=== PATIENT | female | born 1995 | race Caucasian/White ===

== ENCOUNTER → 2021-02-04 | Outpatient (REF) | payer OTHER ==
[2021-02-04 18:07] LABS: HEMATOCRIT 39.5 % (36.0-47.0); HEMOGLOBIN 13.5 g/dl (12.0-15.5); MEAN CORPUSCULAR HEMOGLOBIN 31.8 pg (27.0-33.0); MEAN CORPUSCULAR HGB CONC 34.2 g/dl (32.0-36.5); MEAN CORPUSCULAR VOLUME 92.9 fl (80.0-96.0); PLATELET COUNT, AUTOMATED 374 10^3/uL (150-450); RED BLOOD COUNT 4.25 10^6/uL (4.00-5.40); WHITE BLOOD COUNT 8.8 10^3/uL (4.0-10.0)
[2021-02-04 18:22] LABS: GLUCOSE CHALLENGE TEST 1 HOUR 90 MG/DL (LESS THAN 140)
[2021-02-04 19:39] LABS: CHLAMYDIA DNA AMPLIFICATION NEGATIVE (NEGATIVE); GC DNA AMPLIFICATION NEGATIVE (NEGATIVE)
[2021-02-07 15:20] LABS: HEPATITIS C VIRUS ABY INDEX 0.1 INDEX (<0.8); HIV 1&2 SCREEN CENTAUR NEGATIVE (NEGATIVE)
== END ==
LOC: M PLALAB 14:02
PROVIDERS: ATTEND Advanced Practice Midwife
DX: Z36.89 Encounter for other specified antenatal screening (principal); O99.211 Obesity complicating pregnancy, first trimester; Z3A.00 Weeks of gestation of pregnancy not specified

== ENCOUNTER → 2021-02-09 | Outpatient (CLI) | payer OTHER | LOC: M PLALAB 10:56 | PROVIDERS: ATTEND Advanced Practice Midwife | DX: Z36.89 Encounter for other specified antenatal screening (principal); Z34.82 Encounter for supervision of other normal pregnancy, second trimester ==

== ENCOUNTER → 2021-03-15 | Outpatient (CLI) | payer OTHER ==
--- NOTE | 2021-03-15 10:16 | REP ---
INDICATION: ANATOMY COMPARISON: None. TECHNIQUE: Transabdominal obstetrical ultrasound with color Doppler evaluation. FINDINGS: Examination demonstrates a single live intrauterine in cephalic presentation. motion is identified by technologist. Placenta is noted posterior and grade 0 without evidence for placenta previa or abruption. Amniotic fluid volume is normal. Cervix measures 3.3 cm in length and appears closed.. Gestational age by LMP 19 weeks 1 day with VAIBHAV 08/08/2021. Gestational age by current measurements 19 weeks 2 days with VAIBHAV 08/07/2021. FHR equals 146 beats per minute. Estimated weight 282 grams (51stpercentile). Anatomical assessment demonstrates normal structures including cranium, choroid plexus, cavum, cerebellum/posterior fossa, lungs, diaphragm, stomach, cord insertion/three-vessel cord, kidneys/bladder, spine, and extremities. IMPRESSION: 1. Single live intrauterine in cephalic presentation demonstrating appropriate estimated weight. 2. Limited evaluation of the facial features and heart/ventricular outflow tracts. Remainder of the anatomical assessment is complete and normal. <Electronically signed by Artie Lema > 03/15/21 1010
== END ==
LOC: M WHC 08:52 → EDUNIT# 09:00
PROVIDERS: ATTEND Advanced Practice Midwife
DX: O99.211 Obesity complicating pregnancy, first trimester (principal)

== ENCOUNTER → 2021-05-04 | Outpatient (CLI) | payer OTHER ==
[2021-05-04 13:49] LABS: HEMATOCRIT 38.5 % (36.0-47.0); MEAN CORPUSCULAR HEMOGLOBIN 32.4 pg (27.0-33.0); MEAN CORPUSCULAR HGB CONC 33.8 g/dl (32.0-36.5); PLATELET COUNT, AUTOMATED 320 10^3/uL (150-450); RED BLOOD COUNT 4.01 10^6/uL (4.00-5.40); WHITE BLOOD COUNT 9.7 10^3/uL (4.0-10.0)
== END ==
LOC: M PLALAB 10:11
PROVIDERS: ATTEND Advanced Practice Midwife
DX: O99.342 Other mental disorders complicating pregnancy, second trimester (principal)

== ENCOUNTER 2021-05-13 20:14 | Outpatient (CLI) | payer OTHER ==
[~2021-05-13] VITALS: Ht 172.7 cm; Wt 111.9 kg
[2021-05-13 20:33] VITALS: BP 137/78
[2021-05-13] MEDS ORDERED: LATU20TA PO (20:39)
--- NOTE | 2021-05-13 22:35 | REPVR ---
PROCEDURE INFORMATION: Exam: US Biophysical Profile Without Non-Stress Test Exam date and time: 05/13/2021 10:13 PM Age: 25 years old Clinical indication: Other: Decreased movement; TECHNIQUE: Imaging protocol: US biophysical profile without non-stress testing. COMPARISON: US OBS FOLLOW UP OR REPEAT 04/26/2021 9:01 AM FINDINGS: Gestation: Single intrauterine fetus. Transverse lie with head on the maternal right. heart rate: heartbeat of 150 bpm. Placenta: Posterior placenta. Amniotic fluid index: Normal YADIRA of 19.7 cm. BIOPHYSICAL PROFILE: Breathin/2 Gross body movements: 2/2 tone: 2/2 Qualitative amniotic fluid: 2/2 Biophysical Profile Score: 8/8 MATERNAL ANATOMY: Cervix: Closed cervix measuring 5.5 cm. IMPRESSION: 1. Single live intrauterine fetus in transverse lie with head on the maternal right. 2. YADIRA of 19.7 cm. 3. Normal biophysical profile score of 8/8. Electronically signed by: Fritz Ng On 05/13/2021 22:34:46 PM
--- NOTE | 2021-05-13 23:10 | IPNPDOC ---
Text Note Date of Service The patient was seen on 05/13/21. NOTE Outpatient 25yo VAIBHAV 08/08/2021. Presents at 27w4d with reports of decreased movement since last night. Reports not feeling movement after dinner as usual. Denies LOF, bleeding or UC Fetus difficult to trace due to maternal habitus and activity Cat I tracing No UC BPP 8/8 Pt is reassured. Discharged home. Routine precautions Keep next appt VS,Fishbone, I+O VS, Fishbone, I+O Vital Signs Date Time Temp Pulse Resp B/P (MAP) Pulse Ox O2 Delivery O2 Flow Rate FiO2 05/13/21 20:33 98.3 101 18 137/78 (97) Cari Carr CNM May 13, 2021 23:10
== END 2021-05-13 23:14 | disposition home or self-care (01) ==
LOC: M LDO 20:14
PROVIDERS: ATTEND Advanced Practice Midwife
DX: O36.8120 Decreased fetal movements, second trimester, not applicable or unspecified (principal); Z3A.27 27 weeks gestation of pregnancy; O99.212 Obesity complicating pregnancy, second trimester; E66.9 Obesity, unspecified; Z79.899 Other long term (current) drug therapy
CPT/HCPCS: 59025; 76819; 76820; G0378; G0463

== ENCOUNTER → 2021-06-01 | Outpatient (CLI) | payer OTHER ==
[~2021-06-01] MED LIST: LATU20TA PO
--- NOTE | 2021-06-01 12:09 | REP ---
INDICATION: BPP/NON REACTIVE NST. COMPARISON: 05/13/2021 TECHNIQUE: Multiple ultrasonographic images of the gravid uterus. FINDINGS: There is a single intrauterine gestation in a breech presentation. heart rate is 147 beats per minute. The placenta is posterior with grade 1 maturity. There is no placenta previa. There is a three-vessel cord. YADIRA: 13.3 (8.9-23.5). The cervix measures 4.2 cm length. Biophysical profile: Breathin.0 Tone: 2.0 Movement: 2.0 AFB: 2.0 Total 05/29 Umbilical artery Doppler ASSESSMENT: PSV 48.2 centimeters/second. EDV 21.9 centimeters/second. S/D 2.20 (1.94-4.07) RA: 0.55 (0.52-0.76). IMPRESSION: Single fetus, breech presentation. Posterior placenta. No previa. heart rate 147 beats per minute. YADIRA: 13.3. Biophysical profile: 05/29 <Electronically signed by Jim Bustos > 06/01/21 [id number]
== END ==
LOC: M WHC 11:31
PROVIDERS: ATTEND Advanced Practice Midwife
DX: O36.8130 Decreased fetal movements, third trimester, not applicable or unspecified (principal)

== ENCOUNTER 2021-06-10 22:32 | Outpatient (CLI) | payer OTHER ==
[~2021-06-10] VITALS: Ht 172.7 cm; Wt 117.0 kg
[2021-06-10 22:55] VITALS: BP 119/65
[2021-06-10] MEDS ORDERED: PRENTAB9 PO (23:02)
--- NOTE | 2021-06-11 00:14 | REPVR ---
PROCEDURE INFORMATION: Exam: US Biophysical Profile Without Non-Stress Test Exam date and time: 06/10/2021 11:49 PM Age: 25 years old Clinical indication: Other: Fall on hands and knees, no injury to belly; TECHNIQUE: Imaging protocol: US biophysical profile without non-stress testing. COMPARISON: US BPP W/O NON STRESS TEST 06/01/2021 11:39 AM FINDINGS: Gestation: Single intrauterine fetus. heart rate: heartbeat of 168 bpm. Presentation: Cephalic presentation. Placenta: Posterior placenta. Amniotic fluid index: Normal YADIRA of 14.2 cm. BIOPHYSICAL PROFILE: Breathin/2 Gross body movements: 2/2 tone: 2/2 Qualitative amniotic fluid: 2/2 Biophysical Profile Score: 8/8 MATERNAL ANATOMY: Cervix: Closed cervix measuring 5.1 cm. Other findings: The stomach, kidneys and bladder appear normal. IMPRESSION: 1. Single live intrauterine fetus in cephalic presentation. 2. Normal YADIRA of 14.2 cm. 3. Normal biophysical profile score of 8/8. Electronically signed by: Fritz Ng On 06/11/2021 00:14:24 AM
[2021-06-11] MEDS ORDERED: HOME MED LIST COMPLETE! XX SCH (00:20)
--- NOTE | 2021-06-11 02:14 | IPNPDOC ---
Text Note Date of Service The patient was seen on 06/10/21. NOTE Outpatient 25yo G1 VAIBHAV 08/08/2021. Presents @ 31w4d with complaints of falling down the last 3 steps, landing on hands and knees around 2130 tonight. Denies LOF, bleeding. Reports good activity. No distress. Resting in bed Cat I tracing. No UC BPP 05/29, no evidence abruption KB negative Reassuring maternal/ status over 4hrs post fall Discharge home. Routine precautions. Keep next appt. VS,Fishbone, I+O VS, Fishbone, I+O Vital Signs Date Time Temp Pulse Resp B/P (MAP) Pulse Ox O2 Delivery O2 Flow Rate FiO2 06/10/21 22:55 98.6 101 18 119/65 (83) Cari Carr CNM Jun 10, 2021 23:37
== END 2021-06-11 02:15 | disposition home or self-care (01) ==
LOC: M LDO 22:32
PROVIDERS: ATTEND Advanced Practice Midwife
DX: Z04.3 Encounter for examination and observation following other accident (principal); Z3A.31 31 weeks gestation of pregnancy
CPT/HCPCS: 36415; 59025; 76819; 76820; 85460; G0378; G0463

== ENCOUNTER → 2021-07-15 | Outpatient (REF) | payer OTHER ==
[~2021-07-15] MED LIST changes: +PRENTAB9 PO
== END ==
LOC: M SFHCWAGY 16:55
PROVIDERS: ATTEND Obstetrics & Gynecology
DX: Z36.89 Encounter for other specified antenatal screening (principal); Z3A.36 36 weeks gestation of pregnancy

== ENCOUNTER → 2021-08-03 | Outpatient (CLI) | payer OTHER ==
[~2021-08-03] MED LIST changes: +ACET-683 PO; +COLA100C5 PO; +IBUP-1022 PO; +NORE0.353 PO
--- NOTE | 2021-08-03 14:18 | REP ---
INDICATION: GROWTH UTERINE SIZE DATE DISCREPANCY COMPARISON: 06/10/2021 TECHNIQUE: Transabdominal obstetrical ultrasound with color Doppler evaluation. FINDINGS: Examination demonstrates a single live intrauterine in cephalic presentation. motion is identified by technologist. Placenta is noted posterior and grade 2 without evidence for placenta previa or abruption. Amniotic fluid volume is normal. Cervix measures 3.4 cm in length and appears closed.. Selected gestational age: 39 weeks 2 days with VAIBHAV 08/08/2021. Gestational age by current measurements 39 weeks 4 days with VAIBHAV is 08/06/2021. FHR equals 142 beats per minute. BPD: 9.6 cm at 39 weeks 1 day HC: 34.2 cm at 39 weeks 3 days AC: 36.1 cm at 40 weeks 0 days FL: 7.8 cm at 39 weeks 5 days HL: 6.8 cm at 39 weeks 4 days HC/AC: 0.95 Estimated weight 3897 grams (83rdpercentile). YADIRA: 11.1 cm (7.2-22.2) IMPRESSION: Single live advanced gestation in cephalic presentation. Estimated weight within normal range. Amniotic fluid index normal. <Electronically signed by Artie Lema > 08/03/21 [id number]
== END ==
LOC: M WHC 12:34
PROVIDERS: ATTEND Advanced Practice Midwife
DX: O26.843 Uterine size-date discrepancy, third trimester (principal); Z3A.39 39 weeks gestation of pregnancy

== ENCOUNTER 2021-08-10 17:21 | Inpatient (IN) | payer OTHER ==
[~2021-08-10] VITALS: Ht 172.7 cm; Wt 122.0 kg
[~2021-08-10 17:21] MED LIST changes: -ACET-683 PO; -COLA100C5 PO; -IBUP-1022 PO; -NORE0.353 PO
[2021-08-10 17:34] VITALS: BP 127/65
--- OUTSIDE RECORDS SUMMARY | 2021-08-10 18:50 | CCD | Continuity of Care Document ---
Author Author [facility] Organization Unknown Address [address] [place] [address] Phone [phone] Care Team Providers Care Surveillance Analyst Name Role Phone Chloe Santana MD AUTM [phone] [facility] Sleep Center AUTM [phone] [facility] Behavioral Health AUTM [phone] [facility]-DR. Beckman AUTM Problems Active Problems Provider Date Bilateral temporomandibular joint disorder Chloe Santana MD Onset: 01/14/2021 Depressive disorder Chloe Santana MD Onset: 01/14/2021 Anxiety state Chloe Santana MD Onset: 01/14/2021 Social History Type Date Description Comments Sex Unknown Tobacco Use Start: Unknown End: Unknown Former Cigarette Smo ker Tobacco Use Start: Unknown Never Smoked Cigars Tobacco Use Start: Unknown Never Smoked A Pipe Tobacco Use Start: Unknown Never Used Smokeless Tobacco ETOH Use Occasionally consumed alcohol in the past Tobacco Use Start: Unknown End: Unknown Patient is a former smoker Quit 2019 1 pack per week x 5 years Recreational Drug Use Formerly used Marijuana sp oradically Recreational Drug Use Formerly used Cocaine spor adically Recreational Drug Use Formerly used Barbiturates sporadically Allergies, Adverse Reactions, Alerts Active Allergies Reaction Severity Comments Date NKDA 01/14/2021 NKEA 01/14/2021 Mega 04/27/2021 Medications Active Medications SIG Qnty Indications Ordering Provide r Date Latuda 20mg Tablets 1 by mouth every morning Unknown 04/01/2021 One Daily Tablets 1 by mouth every day Unknown Immunizations Description No Information Available Vital Signs Date Vital Result Comment 04/27/2021 10:01am BP Systolic Sitting 110 mmHg BP Diastolic Sitting 69 mmHg Heart Rate 84 /min Body Temperature 97.7 F Oral Respiratory Rate 16 /min O2 % BldC Oximetry 100 % Weight 242.50 lb Weight 109.998 kg Height 68 inches 5'8" BMI (Body Mass Index) 36.9 kg/m2 BSA (Body Surface Area) 2.22 m2 01/14/2021 10:56am BP Systolic 110 mmHg BP Diastolic 72 mmHg Heart Rate 86 /min Body Temperature 97.7 F Respiratory Rate 16 /min O2 % BldC Oximetry 98 % Weight 229.25 lb Weight 103.988 kg Height 68 inches 5'8" BMI (Body Mass Index) 34.9 kg/m2 BSA (Body Surface Area) 2.17 m2 Results Test Acquired Date Facility Test Result H/L Range Note Complete Blood Count 05/04/2021 [facility] White Blood Count 9.7 10 Normal 4.0-10.0 Red Blood Count 4.01 10 Normal 4.00-5.40 Hemoglobin 13.0 g/dL Normal 12.0-15.5 Hematocrit 38.5 % Normal 36.0-47.0 Mean Corpuscular Volume 96.0 fl Normal 80.0-96.0 Mean Corpuscular Hemoglobin 32.4 pg Normal 27.0-33.0 Mean Corpuscular HGB Conc 33.8 g/dL Normal 32.0-36.5 Red Cell Distribution Width 13.0 % Normal 11.5-14.5 Platelet Count, Automated 320 10 Normal 150-450 Nucleated Red Blood Cell % 0.0 % Normal 0-0 Laboratory test finding 05/04/2021 [facility] Glucose Challenge Test 1 Hour 106 mg/dL Normal Less Than 1 40 Type & Screen -Incl Blood Type,Robert,AB SC 05/04/2021 [facility] Blood Type O NEGATIVE Normal AB Screen (Indirect Dougie)Vis NEGATIVE Normal Laboratory test finding 05/04/2021 [facility] Rhogam TRANSFUSED PRODU <SEE NOTE> 1 Medwatch Toxassure Select 13 04/27/2021 Bethanie noyola Summary Report (Summary) FINAL 2, 3 PDF . 1 TRANSFUSED PRODUCT: RHOGAM COUNT: 1 2 {DIAGNOSIS: F41.9 F32.89 F4 3.10~{MEDICATIONS/DECLARED: LATUDA~{PRESCRIPTION INFO:~{PRESCRIPTION 3 TOXASSURE SELECT 13 (MW) Test Result Flag Units NO DRUGS DETECTED. Test Result Flag Units Ref Range Creatinine 52 mg/dL >=20 Declared Medications: The flagging and interpretation on this report are based on the following declared medications. Unexpected results may arise from inaccuracies in the declared medications. Note: The testing scope of this panel does not include following reported medications: Lurasidone (Latuda) For clinical consultation, please call . Procedures Date Code Description Status 06/02/2021 44309 Psychiatric Diag Eval W/Medical Service Completed 04/27/2021 86322 Preventive Counseling Indiv 45 M in Completed 03/14/2021 81390 Psychiatric Diagnostic Evaluatio n Completed 01/14/2021 61117 Office/Outpatient New Low MDM 30 -44 Minutes Completed 01/14/2021 54804 Admin Patient Focused Health Ris k Assessment Instrument Completed 01/14/2021 65786 Brief Emotional/Beha v Assessment W/ Scoring Doc Per Standard Inst Completed Medical Devices Description No Information Available Encounters Description No Information Available Assessments Date Code Description Provider 06/08/2021 F32.89 Other specified depressive episo snehal Ronnie Lucien, [facility] 06/08/2021 F41.9 Anxiety disorder, unspecified Sommer long Lucien, [facility] 06/02/2021 F32.89 Other specified depressive episo snehal Harjeet Delgadillo PA-C 06/02/2021 F41.9 Anxiety disorder, unspecified Ca bhumi Delgadillo PA-C 06/02/2021 F60.9 Personality disorder, unspecifie d Harjeet Delgadillo PA-C 05/24/2021 F32.89 Other specified depressive episo snehal Ronnie Graham, [facility] 05/24/2021 F41.9 Anxiety disorder, unspecified Mi ethan Graham, [facility] 05/24/2021 F43.10 Post-traumatic stress disorder, unspecified Ronnie Lucien, [facility] 05/02/2021 F32.89 Other specified depressive episo snehal Ronnie Graham, [facility] 05/02/2021 F41.9 Anxiety disorder, unspecified Mi ethan Lucien, [facility] 05/02/2021 F43.10 Post-traumatic stress disorder, unspecified Ronnie Graham, [facility] 04/27/2021 F32.89 Other specified depressive episo snehal Krystle Duran RN 04/27/2021 F41.9 Anxiety disorder, unspecified An keihsa Duran RN 04/27/2021 F43.10 Post-traumatic stress disorder, unspecified Krystle Duran RN 04/04/2021 F41.9 Anxiety disorder, unspecified Mi ethan Graham, [facility] 04/04/2021 F32.89 Other specified depressive episo snehal Ronnie Graham, [facility] 04/04/2021 F43.10 Post-traumatic stress disorder, unspecified Ronnie Graham, [facility] 03/14/2021 F41.9 Anxiety disorder, unspecified Sommer Graham, [facility] 03/14/2021 F32.89 Other specified depressive episo snehal Ronnie Graham, [facility] 03/14/2021 F43.10 Post-traumatic stress disorder, unspecified Ronnie Graham, [facility] 01/14/2021 Z00.00 Encounter for critical access hospital adult medical examination without abnormal findings Chloe Santana MD 01/14/2021 Z33.1 state, incidental Chloe Santana MD 01/14/2021 G47.8 Other sleep disorders Chloe fernández MD 01/14/2021 F41.9 Anxiety disorder, unspecified An johnny Santana MD 01/14/2021 F32.89 Other specified depressive episo snehal Chloe Santana MD 01/14/2021 M26.603 Bilateral temporomandibular join t disorder, unspecified Chloe Santana MD Plan of Treatment Future Appointment(s):* 06/29/2021 9:00 am - STEVEN Lara at [facility] * 09/01/2021 1:00 pm - Harjeet Delgadillo PA-C at [facility] Functional Status Functional Condition Comment Date Status Glasses Active Mental Status Description No Information Available Referrals Refer to Reason for Referral Status Appt Date [facility] Sleep Center 25-year-old female with rest less sleep, irritability, memory loss, anxiety, depression, PTSD. She scored 4 on [place] scale today. She would like to get a sleep study done. Please evaluate and treat. Thank you. Closed [address] [place] [address] [phone] [facility] 25-year-old female with hist ory of anxiety, depression and PTSD. Please evaluate and treat. Thank you. Closed [address] [place] [address] [phone] [facility]-DR. Beckman 25-year-old female with h istory of TMJ disorder. Please evaluate and treat. Thank you. Closed [address] [facility] [address] [phone]
--- OUTSIDE RECORDS SUMMARY | 2021-08-10 18:50 | CCD ---
Author Author [facility] Organization [facility] Address Unknown Phone Unavailable Care Team Providers Care Hand Shaker Name Role Phone Cari Carr Unavailable PROBLEMS Type Condition ICD9-CM Code [id number] Code Onset Dates Condition S tatus W/U Status Risk SNOMED Code Notes Problem BMI 34.0-34.9,adult Z68.34 Active confirmed 979164671 Problem Other obesity due to excess calories E66.09 Act alma confirmed 071524510 Problem Supervision of other normal Z34.80 Ac tive confirm [id number] Problem PTSD (post-traumatic stress disorder) F43.10 Ac tive confirmed 71333657 Problem Maternal care for anti-D [Rh ] antibodies, third trimester, not applicable or unspecified O36.0130 Active confirmed Problem Obesity complicating in first trimester O99.211 Active confirmed 733369894829 Problem Obesity affecting in second trimester O9 9.212 Active confirmed 646597200173 Problem BMI 35.0-35.9,adult Z68.35 Active confirmed 291213212 Problem Depression with anxiety F41.8 Active confirmed 517084283 ALLERGIES No Known Allergies ENCOUNTERS from 1995 to 2021-06-02 Encounter Location Date Provider Diagnosis [facility] [address] [facility] [address] [facility] [phone] [place] [address] May, Cari Carr Decreased m ovement during in third trimester, antepartum O36.8130 ; Maternal care for anti-D [Rh] antibodies, third trimester, not applicable or unspecified O36.0130 and 30 weeks gestation of Z3A.30 IMMUNIZATIONS Vaccine Route Administration Date Status RHo D Immune Globulin 300mcg/1.5mL RhoGAM IM Intramuscular May 222020 Administered SOCIAL HISTORY Tobacco Use: Social History Observation Description Date Details (start date - stop date) Former Smoker Sex Assigned At : Social History Observation Description Sex Assigned At Unknown Domestic Violence: Question Answer Notes Status: No history of abuse Tobacco Use: Question Answer Notes Are you a: former smoker REASON FOR REFERRAL No Information VITAL SIGNS Weight 252 lbs May, Weight-kg 114.31 kg May, Height 68 in May, BMI 38.316 kg/m2 May, Blood pressure systolic 118 mm Hg May, Blood pressure diastolic 74 mm Hg May, MEDICATIONS Medication SIG (Take, Route, Frequency, Duration) Notes Start Da te End Date Status 27-1 MG 1 tablet Orally Once a day Active Latuda 20 MG 1 tablet with food Orally Once a day for 30 day(s) Jan, Active PROCEDURES from 1995 to 2021-06-02 Procedure Date Ordered Result Body Site non-stress test 2021-06-01 N/A Inj: RhoGAM 300mcg/1.5mL IM Rho D Immune Globulin Human N/A RESULTS No Results REASON FOR VISIT 4 wk pn MEDICAL (GENERAL) HISTORY Type Description Date Medical History depression/anxiety/ptsd Medical History sleep apena Surgical History T&A removed Surgical History wisdom teeth extraction Hospitalization History depression Goals Section No Information Health Concerns No Information MEDICAL EQUIPMENT No Information MENTAL STATUS No Information FUNCTIONAL STATUS No Information ASSESSMENTS Encounter Date Diagnosis Assessment Notes Treatment Notes Treatm ent Clinical Notes May, Decreased movement dur ing in third trimester, antepartum (ICD-10 - O36.8130) May, Maternal care for anti-D [Rh ] antibodies, third trimester, not applicable or unspecified (ICD-10 - O36.0130) May, 30 weeks gestation of (ICD-10 - Z3A.30 ) PLAN OF TREATMENT Treatment Notes Test Name Order Date WW[facility] Biophysical Profile US 2021-06-01 Next Appt Details 2 Weeks Reason:- Routine follow up Provider Name:Cari Carr, 2021-06-21 08:40:00 AM, [address] [facility], , [place], [address], Follow Up:2 Weeks- Routine follow up Insurance Providers Payer Name Payer Address Payer Phone Insured Name Patient Relati onship to Insured Coverage Start Date Coverage End Date [address] [phone] JOANNA BENÍTEZ self
--- OUTSIDE RECORDS SUMMARY | 2021-08-10 18:50 | CCD ---
Author Author [facility] Organization [facility] Address Unknown Phone Unavailable Care Team Providers Care School Laboratory Technician Name Role Phone Drew Rachel Unavailable PROBLEMS Type Condition ICD9-CM Code [id number] Code Onset Dates Condition S tatus W/U Status Risk SNOMED Code Notes Problem Obesity complicating in first trimester O99.211 Active confirmed 189433377520 Problem Obesity affecting in second trimester O9 9.212 Active confirmed 806449419013 Problem Depression with anxiety F41.8 Active confirmed 861209989 Problem Other obesity due to excess calories E66.09 Act alma confirmed 623661872 Problem Anxiety with depression F41.8 Active confirmed 900231269 Problem BMI 34.0-34.9,adult Z68.34 Active confirmed 660813524 Problem Obesity complicating , third trimester O9 9.213 Active confirmed 916741601991 Problem Supervision of other normal Z34.80 Ac tive confirm 865618156 Problem PTSD (post-traumatic stress disorder) F43.10 Ac tive confirmed 89931238 Problem BMI 35.0-35.9,adult Z68.35 Active confirmed 168377665 Problem Maternal care for anti-D [Rh ] antibodies, third trimester, not applicable or unspecified O36.0130 Active confirmed Problem Obesity complicating in third trimester O99.213 Active confirmed ALLERGIES No Known Allergies ENCOUNTERS from 1995 to 2021-07-21 Encounter Location Date Provider Diagnosis [facility] [address] [facility] [phone] [place] [address] Jun, Drew Rachel Mental disorder comp licating in third trimester O99.343 ; Anxiety with depression F41.8 ; Obesity complicating , third trimester O99.213 and 37 weeks gestation of Z3A.37 IMMUNIZATIONS Vaccine Route Administration Date Status TDAP 0.5mL Boostrix IM Intramuscular Jun 21, 2021 Administere d RHo D Immune Globulin 300mcg/1.5mL RhoGAM IM [...] FOR REFERRAL No Information VITAL SIGNS Weight 267 lbs Jun, Weight-kg 121.11 kg Jun, Height 68 in Jun, BMI 40.597 kg/m2 Jun, Blood pressure systolic 118 mm Hg Jun, Blood pressure diastolic 74 mm Hg Jun, MEDICATIONS Medication SIG (Take, Route, Frequency, Duration) Notes Start Da te End Date Status 27-1 MG 1 tablet Orally Once a day Active Latuda 20 MG 1 tablet with food Orally Once a day for 30 day(s) Jan, Active PROCEDURES No Information RESULTS No Results REASON FOR VISIT 1 WK PN MEDICAL (GENERAL) HISTORY Type Description Date Medical History depression/anxiety/ptsd Medical History sleep apena Surgical History T&A removed Surgical History wisdom teeth extraction Hospitalization History depression Goals Section No Information Health Concerns No Information MEDICAL EQUIPMENT No Information MENTAL STATUS No Information FUNCTIONAL STATUS No Information ASSESSMENTS Encounter Date Diagnosis Assessment Notes Treatment Notes Treatm ent Clinical Notes Jun, Mental disorder complicating in third trimester (ICD-10 - O99.343) Jun, Anxiety with depression (ICD-10 - F41.8) Jun, Obesity complicating , third tr imester (ICD-10 - O99.213) Jun, 37 weeks gestation of (ICD-10 - Z3A.37 ) PLAN OF TREATMENT Next Appt Details 1 Week Reason:PN Provider Name:Frantz Paredes 2021-07-26 10:15:00 AM, [address] [facility], , [place], [address], Follow Up:1 WeekPN Insurance Providers Payer Name Payer Address Payer Phone Insured Name Patient Relati onship to Insured Coverage Start Date Coverage End Date [address] [phone] JOANNA BENÍTEZ self
--- OUTSIDE RECORDS SUMMARY | 2021-08-10 18:50 | CCD ---
Author Author [facility] Organization [facility] Address Unknown Phone Unavailable Care Team Providers Care Mobile Qa Tester Name Role Phone Edith Ferreira Unavailable PROBLEMS Type Condition ICD9-CM Code EHU83-OW Code Onset Dates Condition S tatus W/U Status Risk SNOMED Code Notes Problem Supervision of other normal Z34.80 Ac tive confirm 567157914 Problem Other obesity due to excess calories E66.09 Act alma confirmed 797359776 Problem BMI 35.0-35.9,adult Z68.35 Active confirmed 691695739 Problem Obesity affecting in second trimester O9 9.212 Active confirmed 394707434202 Problem Depression with anxiety F41.8 Active confirmed 198825908 Problem Anxiety with depression F41.8 Active confirmed 291914408 Problem Obesity complicating in first trimester O99.211 Active confirmed 526512032964 Problem Obesity complicating , third trimester O9 9.213 Active confirmed 659619456036 Problem BMI 34.0-34.9,adult Z68.34 Active confirmed 974538281 Problem PTSD (post-traumatic stress disorder) F43.10 Ac tive confirmed 53634823 Problem Maternal care for anti-D [Rh ] antibodies, third trimester, not applicable or unspecified O36.0130 Active confirmed Problem Obesity complicating in third trimester O99.213 Active confirmed Problem Obesity, unspecified E66.9 Active confirmed 008248763 ALLERGIES No Known Allergies ENCOUNTERS from 1995 to 2021-07-27 Encounter Location Date Provider Diagnosis [facility] [address] [facility] [address] [phone] [place] [address] Jun, Edith Ferreira Obesity complicating in third trimester O99.213 ; Obesity, unspecified E66.9 ; 36 weeks gestation of Z3A.36 and Encounter for care in third trimester of first Z34.03 IMMUNIZATIONS Vaccine Route Administration Date Status TDAP [...] Answer Notes Status: No history of abuse Alcohol Screening: Question Answer Notes Did you have a drink containing alcohol in the past year? No Points 0 Interpretation Negative Tobacco Use: Question Answer Notes Are you a: former smoker How long has it been since you last smoked? 1-5 years REASON FOR REFERRAL No Information VITAL SIGNS Weight 263 lbs Jun, Height 68 in Jun, BMI 39.989 kg/m2 Jun, Blood pressure systolic 110 mm Hg Jun, Blood pressure diastolic 60 mm Hg Jun, MEDICATIONS Medication SIG (Take, Route, Frequency, Duration) Notes Start Da te End Date Status 27-1 MG 1 tablet Orally Once a day Active Latuda 20 MG 1 tablet with food Orally Once a day for 30 day(s) Jan, Active PROCEDURES No Information RESULTS Component Value Reference Range GROUP B STREP CULTURE Reviewed date:07/17/2021 11:16:03 Interpretation: Performing Lab:Replaced By [facility], [facility] [address] [address] , ,[place] [address] REASON FOR VISIT 1 WK PN MEDICAL [...] Treatment Notes Treatm ent Clinical Notes Jun, Obesity complicating pregnan cy in third trimester (ICD-10 - O99.213) Jun, Obesity, unspecified (ICD-10 - E66.9) Jun, 36 weeks gestation of (ICD-10 - Z3A.36 ) Jun, Encounter for care in third trimester of first (ICD-10 - Z34.03) PLAN OF TREATMENT Next Appt Details 1 Week Reason:Routine Provider Name:Cari Amalia Lilly, 2021-08-02 03:00:00 PM, [address], , [place], [address], Follow Up:1 WeekRoutine Insurance Providers Payer Name Payer Address Payer Phone Insured Name Patient Relati onship to Insured Coverage Start Date Coverage End Date [address] [phone] JOANNA BENÍTEZ self
--- OUTSIDE RECORDS SUMMARY | 2021-08-10 18:50 | CCD | Continuity of Care Document ---
Author Author Bee DELGADILLO PA-C Organization Unknown Address [facility] [address] [place] [address] Phone [phone] Care Team Providers Care Diploma Pharmacy Technician Name Role Phone Chloe Santana MD AUTM [phone] [facility] AUTM [phone] [facility] AUTM [phone] [facility]-DR. Beckman AUTM [phone] Problems Active Problems Provider Date Bilateral temporomandibular [...] Severity Comments Date NKDA 01/14/2021 [facility] 01/14/2021 [place] 04/27/2021 Medications Active Medications SIG Qnty Indications [...] H/L Range Note Complete Blood Count 05/04/2021 [facility] White Blood Count 9.7 10 Normal 4.0-10.0 [...] % Normal 0-0 Laboratory test finding 05/04/2021 [facility] Glucose Challenge Test 1 Hour 106 mg/dL Normal Less Than 1 40 Type & Screen -Incl Blood Type,Robert,AB SC 05/04/2021 [facility] Blood Type O NEGATIVE Normal AB Screen (Indirect Dougie)Vis NEGATIVE Normal Laboratory test finding 05/04/2021 [facility] Rhogam TRANSFUSED PRODU <SEE NOTE> 1 Medwatch Toxassure Select 13 04/27/2021 Betahnie noyola Summary Report (Summary) FINAL 2, 3 [...] . Procedures Date Code Description Status 06/02/2021 63570 Psychiatric Diag Eval W/Medical Service Completed 04/27/2021 64778 Preventive Counseling Indiv 45 M in Completed 03/14/2021 11384 Psychiatric Diagnostic Evaluatio n Completed 01/14/2021 12535 Office/Outpatient New [facility] 30 -44 Minutes Completed 01/14/2021 18798 Admin Patient Focused Health Ris k Assessment Instrument Completed 01/14/2021 73632 Brief Emotional/Beha v Assessment W/ Scoring Doc Per Standard Inst Completed Medical Devices Description No Information Available Encounters Description No Information Available Assessments Date Code Description Provider 06/02/2021 F32.89 Other specified depressive episo snehal Harjeet Delgadillo PA-C 06/02/2021 F41.9 Anxiety disorder, unspecified Ca bhumi Delgadillo PA-C 06/02/2021 F60.9 Personality disorder, unspecifie d Harjeet Delgadillo PA-C 05/24/2021 F32.89 Other specified depressive episo snehal Ronniemelania Mcgraw, [facility] 05/24/2021 F41.9 Anxiety disorder, unspecified Sommer Mcgraw, [facility] 05/24/2021 F43.10 Post-traumatic stress disorder, unspecified Ronnie Mcgraw, [facility] 05/02/2021 F32.89 Other specified depressive episo snehal Ronnie Lucien, [facility] 05/02/2021 F41.9 Anxiety disorder, unspecified Sommer Mcgraw, [facility] 05/02/2021 F43.10 Post-traumatic stress disorder, unspecified Ronnie Mcgraw, [facility] 04/27/2021 F32.89 Other specified depressive episo snehal Krystle Duran, RN 04/27/2021 F41.9 Anxiety disorder, unspecified An keisha Duran RN 04/27/2021 F43.10 Post-traumatic stress disorder, unspecified Krystle Duran, RN 04/04/2021 F41.9 Anxiety disorder, unspecified Mi ethan Mcgraw, [facility] 04/04/2021 F32.89 Other specified depressive episo snehal Ronnie Mcgraw, [facility] 04/04/2021 F43.10 Post-traumatic stress disorder, unspecified Ronnie Mcgraw, [facility] 03/14/2021 F41.9 Anxiety disorder, unspecified Mi ethan Mcgraw, [facility] 03/14/2021 F32.89 Other specified depressive episo snehal Ronnie Lucien, [facility] 03/14/2021 F43.10 Post-traumatic stress disorder, unspecified Ronnie Lucien, [facility] 01/14/2021 Z00.00 Encounter for genera l adult medical examination without abnormal findings Chloe Santana MD 01/14/2021 Z33.1 state, incidental Chloe Santana MD 01/14/2021 G47.8 Other sleep disorders Chloe fernández MD 01/14/2021 F41.9 Anxiety disorder, unspecified An johnny Sanat[place] MD 01/14/2021 F32.89 Other specified depressive episo snehal Chloe Santana MD 01/14/2021 M26.603 Bilateral temporomandibular join t disorder, unspecified Chloe Santana MD Plan of Treatment Future Appointment(s):* 09/01/2021 1:00 pm - Harjeet Delgadillo PA-C at [facility] * 06/08/2021 10:00 am - STEVEN Lara at [facility] Functional Status Functional Condition Comment Date Status Glasses Active Mental Status Description No Information Available Referrals Refer to Reason for Referral Status Appt Date [facility] 25-year-old female with rest less sleep, irritability, memory loss, anxiety, depression, PTSD. She scored 4 on [place] scale today. She would like to get a sleep study done. Please evaluate and treat. Thank you. Closed [address] [place], [place] [id number] [phone] [facility] 25-year-old female with hist ory of anxiety, depression and PTSD. Please evaluate and treat. Thank you. Closed [address] [place] [address] [phone] [facility]-DR. Beckman 25-year-old female with h istory of TMJ disorder. Please evaluate and treat. Thank you. Closed [address] [facility] [address] [phone]
--- OUTSIDE RECORDS SUMMARY | 2021-08-10 18:50 | CCD | Continuity of Care Document ---
Author Author [facility] Organization Unknown Address [address] [place] [address] Phone [phone] Care Team Providers Care Internal Control Consultant Name Role Phone Chloe Santana MD AUTM [phone] [facility] AUTM [phone] [facility] AUTM [phone] [facility]-DR. Beckman AUTM [phone] Problems Active Problems Provider Date Bilateral temporomandibular [...] H/L Range Note Complete Blood Count 05/04/2021 [facility] White Blood Count 9.7 10 Normal [...] % Normal 0-0 Laboratory test finding 05/04/2021 [facility] Glucose Challenge Test 1 Hour 106 mg/dL Normal Less Than 1 40 Type & Screen -Incl Blood Type,Robert,AB SC 05/04/2021 [facility] Blood Type O NEGATIVE Normal AB Screen (Indirect Dougie)Vis NEGATIVE Normal Laboratory test finding 05/04/2021 [facility] Rhogam TRANSFUSED PRODU <SEE NOTE> 1 [...] . Procedures Date Code Description Status 06/02/2021 19944 Psychiatric Diag Eval W/Medical Service Completed 04/27/2021 02521 Preventive Counseling Indiv 45 M in Completed 03/14/2021 81690 Psychiatric Diagnostic Evaluatio n Completed 01/14/2021 29784 Office/Outpatient New [facility] 30 -44 Minutes Completed 01/14/2021 77412 Admin Patient Focused Health Ris k Assessment Instrument Completed 01/14/2021 20163 Brief Emotional/Beha v Assessment W/ Scoring Doc Per Standard Inst Completed Medical Devices Description No Information Available Encounters Description No Information Available Assessments Date Code Description Provider 06/08/2021 F32.89 Other specified depressive episo snehal Ronnie Lucien, [facility] 06/08/2021 F41.9 Anxiety disorder, unspecified Sommer long Lucien, [facility] 06/02/2021 F32.89 Other specified depressive episo snehal Harjeet Delgadillo PA-C 06/02/2021 F41.9 Anxiety disorder, unspecified Ca bhumi Delgadillo PA-C 06/02/2021 F60.9 Personality disorder, unspecifie d Harjeet Delgadillo PA-C 05/24/2021 F32.89 Other specified depressive episo snehal Ronnie Graham, [facility] 05/24/2021 F41.9 Anxiety disorder, unspecified Mi ethan Graham, [facility] 05/24/2021 F43.10 Post-traumatic stress disorder, unspecified Ronnie Lucien, [facility] 05/02/2021 F32.89 Other specified depressive episo snehal Ronnie Graham, [facility] 05/02/2021 F41.9 Anxiety disorder, unspecified Mi ethan Lucien, [facility] 05/02/2021 F43.10 Post-traumatic stress disorder, unspecified Ronnie Graham, [facility] 04/27/2021 F32.89 Other specified depressive episo snehal Krystle Duran RN 04/27/2021 F41.9 Anxiety disorder, unspecified An keisha Duran RN 04/27/2021 F43.10 Post-traumatic stress disorder, unspecified Krystle Duran RN 04/04/2021 F41.9 Anxiety disorder, unspecified Mi ethan Graham, [facility] 04/04/2021 F32.89 Other specified depressive episo snehal Ronnie Graham, [facility] 04/04/2021 F43.10 Post-traumatic stress disorder, unspecified Ronnie Graham, [facility] 03/14/2021 F41.9 Anxiety disorder, unspecified Sommer Graham, [facility] 03/14/2021 F32.89 Other specified depressive episo snehal Ronnie Graham, [facility] 03/14/2021 F43.10 Post-traumatic stress disorder, unspecified Ronnie Graham, [facility] 01/14/2021 Z00.00 Encounter for [facility] adult medical examination without abnormal findings Chloe [...] 06/29/2021 9:00 am - STEVEN Lara at [facility] * 09/01/2021 1:00 pm - Harjeet Delgadillo PA-C at [facility] Functional Status Functional Condition Comment Date Status Glasses Active Mental Status Description No Information Available Referrals Refer to Reason for Referral Status Appt Date [facility] 25-year-old female with rest less sleep, irritability, memory loss, anxiety, depression, PTSD. She scored 4 on [place] scale today. She would like to get a sleep study done. Please evaluate and treat. Thank you. Closed [address] [place] [address] [phone] [facility] 25-year-old female with hist ory of anxiety, depression and PTSD. Please evaluate and treat. Thank you. Closed [address] [place] [address] [phone] [facility]-DR. Beckman 25-year-old female with h istory of TMJ disorder. Please evaluate and treat. Thank you. Closed [address] [facility] [address] [phone]
--- OUTSIDE RECORDS SUMMARY | 2021-08-10 18:50 | CCD | Continuity of Care Document ---
Author Author Bee [facility] Organization Unknown Address [address] [place] [address] Phone [phone] Care Team Providers Care Railroad Dining Car Stewardess Name Role Phone Chloe Santana MD AUTM [phone] [facility] AUTM [phone] [facility] AUTM [phone] [facility]-DR. Beckman AUTM Problems Active [...] H/L Range Note Complete Blood Count 05/04/2021 [facility] White Blood Count 9.7 10 Normal [...] % Normal 0-0 Laboratory test finding 05/04/2021 [facility] Glucose Challenge Test 1 Hour 106 mg/dL Normal Less Than 1 40 Type & Screen -Incl Blood Type,Robert,AB SC 05/04/2021 [facility] Blood Type O NEGATIVE Normal AB Screen (Indirect Dougie)Vis NEGATIVE Normal Laboratory test finding 05/04/2021 [facility] Rhogam TRANSFUSED PRODU <SEE NOTE> 1 [...] . Procedures Date Code Description Status 06/02/2021 82282 Psychiatric Diag Eval W/Medical Service Completed 04/27/2021 13327 Preventive Counseling Indiv 45 M in Completed 03/14/2021 17423 Psychiatric Diagnostic Evaluatio n Completed 01/14/2021 09095 Office/Outpatient New [facility]DM 30 -44 Minutes Completed 01/14/2021 65635 Admin Patient Focused Health Ris k Assessment Instrument Completed 01/14/2021 93332 Brief Emotional/Beha v Assessment W/ Scoring Doc Per Standard Inst Completed Medical Devices Description No Information Available Encounters Description No Information Available Assessments Date Code Description Provider 06/08/2021 F32.89 Other specified depressive episo snehal Ronnie Lucien, [facility] 06/08/2021 F41.9 Anxiety disorder, unspecified Sommer long Lucien, [facility] 06/02/2021 F32.89 Other specified depressive episo snehal Harjeet Delgadillo PA-C 06/02/2021 F41.9 Anxiety disorder, unspecified Ca bhumi Delgadillo PA-C 06/02/2021 F60.9 Personality disorder, unspecifie d Harjeet Delgadillo PA-C 05/24/2021 F32.89 Other specified depressive episo snehal Ronnie Graham, [facility] 05/24/2021 F41.9 Anxiety disorder, unspecified Mi ethan Graham, [facility] 05/24/2021 F43.10 Post-traumatic stress disorder, unspecified Ronnie Lucien, [facility] 05/02/2021 F32.89 Other specified depressive episo snehal Ronnie Graham, [facility] 05/02/2021 F41.9 Anxiety disorder, unspecified Mi ethan Lucien, [facility] 05/02/2021 F43.10 Post-traumatic stress disorder, unspecified Ronnie Graham, [facility] 04/27/2021 F32.89 Other specified depressive episo snehal Krystle Duran RN 04/27/2021 F41.9 Anxiety disorder, unspecified An keisha Duran RN 04/27/2021 F43.10 Post-traumatic stress disorder, unspecified Krystle Duran RN 04/04/2021 F41.9 Anxiety disorder, unspecified Mi ethan Graham, [facility] 04/04/2021 F32.89 Other specified depressive episo snehal Ronnie Graham, [facility] 04/04/2021 F43.10 Post-traumatic stress disorder, unspecified Ronnie Graham, [facility] 03/14/2021 F41.9 Anxiety disorder, unspecified Sommer Graham, [facility] 03/14/2021 F32.89 Other specified depressive episo snehal Ronnie Graham, [facility] 03/14/2021 F43.10 Post-traumatic stress disorder, unspecified Ronnie Graham, [facility] 01/14/2021 Z00.00 Encounter for [facility] adult medical examination without abnormal findings [...] 06/29/2021 9:00 am - STEVEN Lara at [facility] * 09/01/2021 1:00 pm - Harjeet Delgadillo PA-C at [facility] Functional Status Functional Condition Comment Date Status Glasses Active Mental Status Description No Information Available Referrals Refer to Reason for Referral Status Appt Date [facility] 25-year-old female with rest less sleep, irritability, memory loss, anxiety, depression, PTSD. She scored 4 on [place] scale today. She would like to get a sleep study done. Please evaluate and treat. Thank you. Closed [address] [place] [address] [phone] [facility] 25-year-old female with hist ory of anxiety, depression and PTSD. Please evaluate and treat. Thank you. Closed [address] [place] [address] [phone] [facility]-DR. Beckman 25-year-old female with h istory of TMJ disorder. Please evaluate and treat. Thank you. Closed [address] [facility] [address] [phone]
--- OUTSIDE RECORDS SUMMARY | 2021-08-10 18:50 | CCD | Continuity of Care Document ---
Author Author Bee SPENCE PA-C Organization Unknown Address [address] [place] [address] Phone [phone] Care Team Providers Care Clinical Marketing Manager Name Role Phone Chloe Santana MD AUTM [phone] [facility] Sleep Center AUTM [phone] [facility] Behavioral Health AUTM [phone] [facility]-DR. Beckman AUTM Problems Active [...] Recreational Drug Use Formerly used Barbiturates sporadically Allergies and adverse reactions Active Allergies Criticality Reaction | Severity Comments Date NKDA Unable to assess criticality 01/14/2021 NKEA Unable to assess criticality 01/14/2021 Mega Unable to assess criticality 04/27/2021 Medications Active Medications SIG Qnty Indications Ordering Provide r Date Latuda 20mg Tablets 1 by mouth every morning Unknown 04/01/2021 One Daily Tablets 1 by mouth every day Unknown Immunizations Description No Information Available Vital Signs Date Vital Result Comment 08/03/2021 3:52pm Heart Rate 86 /min Body Temperature 98.6 F O2 % BldC Oximetry 96 % 04/27/2021 10:01am BP Systolic Sitting 110 mmHg BP Diastolic Sitting 69 mmHg Heart Rate 84 /min Body Temperature 97.7 F Oral Respiratory Rate 16 /min O2 % BldC Oximetry 100 % Weight 242.50 lb Weight 109.998 kg Height 68 inches 5'8" BMI (Body Mass Index) 36.9 kg/m2 BSA (Body Surface Area) 2.22 m2 Results Test Acquired Date Facility Test Result H/L Range Note Laboratory test finding 08/03/2021 [facility] Covid-19 <pending> Complete Blood Count 05/04/2021 [facility] White Blood Count 9.7 10 Normal 4.0-10.0 [...] % Normal 0-0 Laboratory test finding 05/04/2021 [facility] Glucose Challenge Test 1 Hour 106 mg/dL Normal Less Than 1 40 Type & Screen -Incl Blood Type,Robert,AB SC 05/04/2021 [facility] Blood Type O NEGATIVE Normal AB Screen (Indirect Dougie)Vis NEGATIVE Normal Laboratory test finding 05/04/2021 [facility] Rhogam TRANSFUSED PRODU <SEE NOTE> 1 Medwatch [...] . Procedures Date Code Description Status 06/02/2021 67439 Psychiatric Diag Eval W/Medical Service Completed 04/27/2021 16455 Preventive Counseling Indiv 45 M in Completed 03/14/2021 55541 Psychiatric Diagnostic Evaluatio n Completed Medical Devices Description No Information Available Encounters Description No Information Available Assessments Date Code Description Provider 06/29/2021 F32.89 Other specified depressive episo snehal Ronnie Mcgraw, [facility] 06/29/2021 F41.9 Anxiety disorder, unspecified Sommer Mcgraw, [facility] 06/29/2021 F43.10 Post-traumatic stress disorder, unspecified Ronnie Mcgraw, [facility] 06/08/2021 F32.89 Other specified depressive episo snehal Ronnie Mcgraw, [facility] 06/08/2021 F41.9 Anxiety disorder, unspecified Mi ethan Mcgraw, [facility] 06/02/2021 F32.89 Other specified depressive episo snehal NIRAJ ColvinC 06/02/2021 F41.9 Anxiety disorder, unspecified Ca JÚNIOR Encarnacion-C 06/02/2021 F60.9 Personality disorder, unspecifie d Harjeet Delgadillo PA-C 05/24/2021 F32.89 Other specified depressive episo snehal Ronnie Mcgraw, [facility] 05/24/2021 F41.9 Anxiety disorder, unspecified Sommer Mcgraw, [facility] 05/24/2021 F43.10 Post-traumatic stress disorder, unspecified Ronnie Mcgraw, [facility] 05/02/2021 F32.89 Other specified depressive episo snehal Ronnie Mcgraw, [facility] 05/02/2021 F41.9 Anxiety disorder, unspecified Mi ethan Mcgraw, [facility] 05/02/2021 F43.10 Post-traumatic stress disorder, unspecified Ronnie Lucien, [facility] 04/27/2021 F32.89 Other specified depressive episo snehal Krystle Duran, [facility] 04/27/2021 F41.9 Anxiety disorder, unspecified An keisha Duran RN 04/27/2021 F43.10 Post-traumatic stress disorder, unspecified Krystle Duran RN 04/04/2021 F41.9 Anxiety disorder, unspecified Mi ethan Mcgraw, [facility] 04/04/2021 F32.89 Other specified depressive episo snehal Ronnie Mcgraw, [facility] 04/04/2021 F43.10 Post-traumatic stress disorder, unspecified Ronnie Mcgraw, [facility] 03/14/2021 F41.9 Anxiety disorder, unspecified Sommer long Lucien, [facility] 03/14/2021 F32.89 Other specified depressive episo snehal Ronnie Mcgraw, [facility] 03/14/2021 F43.10 Post-traumatic stress disorder, unspecified STEVEN Lara Plan of Treatment Future Appointment(s):* 08/09/2021 10:00 am - STEVEN Lara at [facility] * 09/01/2021 1:00 pm - Harjeet Delgadillo PA-C at [facility] Functional Status Functional Condition Comment Date Status Glasses Active Mental Status Description No Information Available Referrals Description No Information Available
--- OUTSIDE RECORDS SUMMARY | 2021-08-10 18:50 | CCD ---
Author Author [facility] Organization [facility] Address Unknown Phone Unavailable Care Team Providers Care Water Quality Assistant Name Role Phone Cari Carr Unavailable PROBLEMS Type Condition ICD9-CM Code [id number] Code Onset Dates Condition S tatus W/U Status Risk SNOMED Code Notes Problem Supervision of other normal Z34.80 Ac tive confirm 234688435 Problem Other obesity due to excess calories E66.09 Act alma confirmed 325093510 Problem BMI 35.0-35.9,adult Z68.35 Active confirmed 314306241 Problem Obesity affecting in second trimester O9 9.212 Active confirmed 953364527313 Problem Depression with anxiety F41.8 Active confirmed 811942165 Problem Anxiety with depression F41.8 Active confirmed 764980972 Problem Obesity complicating in first trimester O99.211 Active confirmed 248505083021 Problem Obesity complicating , third trimester O9 9.213 Active confirmed 543988803626 Problem BMI 34.0-34.9,adult Z68.34 Active confirmed 526596997 Problem PTSD (post-traumatic stress disorder) F43.10 Ac tive confirmed 38041632 Problem Maternal care for anti-D [Rh ] antibodies, third trimester, not applicable or unspecified O36.0130 Active confirmed Problem Obesity complicating in third trimester O99.213 Active confirmed Problem Obesity, unspecified E66.9 Active confirmed 832425678 ALLERGIES No Known Allergies ENCOUNTERS from 1995 to 2021-08-04 Encounter Location Date Provider Diagnosis [facility] [address] [place] [address] [place] [address] Jul, Cari Carr Uterine size-date discrepancy, third trimester O26.843 IMMUNIZATIONS Vaccine Route Administration Date Status TDAP [...] REASON FOR REFERRAL No Information VITAL SIGNS No information MEDICATIONS Medication SIG (Take, Route, Frequency, Duration) Notes Start Da te End Date Status 27-1 MG 1 tablet Orally Once a day Active Latuda 20 MG 1 tablet with food Orally Once a day for 30 day(s) Jan, Active PROCEDURES No Information RESULTS Component Value Reference Range WW OBS FOLLOW UP OR REPEAT Reviewed date:08/03/2021 16:55:01 Interpretation: Performing Lab:[facility],[address] [place]], ,[place] [address] REASON FOR VISIT No Information MEDICAL (GENERAL) HISTORY Type Description Date Medical History depression/anxiety/ptsd Medical History sleep apena Surgical History T&A removed Surgical History wisdom teeth extraction Hospitalization History depression Goals Section No Information Health Concerns No Information MEDICAL EQUIPMENT No Information MENTAL STATUS No Information FUNCTIONAL STATUS No Information ASSESSMENTS Encounter Date Diagnosis Assessment Notes Treatment Notes Treatm ent Clinical Notes Jul, Uterine size-date discrepancy, third tri mester (ICD-10 - O26.843) PLAN OF TREATMENT Next Appt Details Provider Name:Edith Guthrie MicTalhanavid, 2020--2 0 08:40:00 AM, [address] [facility], , [place], [address], Insurance Providers Payer Name Payer Address Payer Phone Insured Name Patient Relati onship to Insured Coverage Start Date Coverage End Date [place] [phone] JOANNA BENÍTEZ self
--- OUTSIDE RECORDS SUMMARY | 2021-08-10 18:50 | CCD ---
Author Author [facility] Organization [facility] Address Unknown Phone Unavailable Care Team Providers Care Registered Nurse Float Pool Name Role Phone Cari Carr Unavailable PROBLEMS Type Condition ICD9-CM Code [id number] Code Onset Dates Condition S tatus W/U Status Risk SNOMED Code Notes Problem Other obesity due to excess calories E66.09 Act alma confirmed 493476627 Problem Supervision of other normal Z34.80 Ac tive confirm 436344884 Problem Obesity complicating in first trimester O99.211 Active confirmed 921773234389 Problem Maternal care for anti-D [Rh ] antibodies, third trimester, not applicable or unspecified O36.0130 Active confirmed Problem BMI 34.0-34.9,adult Z68.34 Active confirmed 710032073 Problem Obesity complicating in third trimester O99.213 Active confirmed Problem Obesity affecting in second trimester O9 9.212 Active confirmed 528724681145 Problem BMI 35.0-35.9,adult Z68.35 Active confirmed 864088688 Problem Depression with anxiety F41.8 Active confirmed 261398571 Problem PTSD (post-traumatic stress disorder) F43.10 Ac tive confirmed 35134234 ALLERGIES No Known Allergies ENCOUNTERS from 1995 to 2021-06-22 Encounter Location Date Provider Diagnosis [facility] [address] [facility] [phone] [place] [address] May, Cari Carr Obesity complicat ing in third trimester O99.213 ; 33 weeks gestation of Z3A.33 and Encounter for immunization Z23 IMMUNIZATIONS Vaccine Route Administration Date Status TDAP [...] FOR REFERRAL No Information VITAL SIGNS Weight 257.6 lbs May, Weight-kg 116.85 kg May, Height 68 in May, BMI 39.168 kg/m2 May, Blood pressure systolic 114 mm Hg May, Blood pressure diastolic 74 mm Hg May, MEDICATIONS Medication SIG (Take, Route, Frequency, Duration) Notes Start Da te End Date Status Latuda 20 MG 1 tablet with food Orally Once a day for 30 day(s) Jan, Active 27-1 MG 1 tablet Orally Once a day Active PROCEDURES from 1995 to 2021-06-22 Procedure Date Ordered Result Body Site Imm: Boostrix 0.5mL IM TDAP 2021-06-21 N/A RESULTS No Results REASON FOR VISIT 2WK PN MEDICAL (GENERAL) HISTORY Type Description Date Medical History depression/anxiety/ptsd Medical History sleep apena Surgical History T&A removed Surgical History wisdom teeth extraction Hospitalization History depression Goals Section No Information Health Concerns No Information MEDICAL EQUIPMENT No Information MENTAL STATUS No Information FUNCTIONAL STATUS No Information ASSESSMENTS Encounter Date Diagnosis Assessment Notes Treatment Notes Treatm ent Clinical Notes May, Obesity complicating pregnan cy in third trimester (ICD-10 - O99.213) May, 33 weeks gestation of (ICD-10 - Z3A.33 ) May, Encounter for immunization (ICD-10 - Z23) PLAN OF TREATMENT Next Appt Details 2 Weeks Reason:- Routine follow up Provider Name:Drew Rachel, 09:00:00 AM, [address] [facility], , [place], [address], Follow Up:2 Weeks- Routine follow up Insurance Providers Payer Name Payer Address Payer Phone Insured Name Patient Relati onship to Insured Coverage Start Date Coverage End Date [address] [phone] JOANNA BENÍTEZ self
--- OUTSIDE RECORDS SUMMARY | 2021-08-10 18:50 | CCD ---
Author Author [facility] Organization [facility] Address Unknown Phone Unavailable Care Team Providers Care Brass Roller Name Role Phone Edith Ferreira Unavailable PROBLEMS Type Condition ICD9-CM Code [id number] Code Onset Dates Condition S tatus W/U Status Risk SNOMED Code Notes Problem Supervision of other normal Z34.80 Ac tive confirm 821990450 Problem Other obesity due to excess calories E66.09 Act alma confirmed 614716723 Problem BMI 35.0-35.9,adult Z68.35 Active confirmed 138944293 Problem Obesity affecting in second trimester O9 9.212 Active confirmed 504462859423 Problem Depression with anxiety F41.8 Active confirmed 156341268 Problem Anxiety with depression F41.8 Active confirmed 995287100 Problem Obesity complicating in first trimester O99.211 Active confirmed 926111675495 Problem Obesity complicating , third trimester O9 9.213 Active confirmed 994983469490 Problem BMI 34.0-34.9,adult Z68.34 Active confirmed 824655124 Problem PTSD (post-traumatic stress disorder) F43.10 Ac tive confirmed 87382463 Problem Maternal care for anti-D [Rh ] antibodies, third trimester, not applicable or unspecified O36.0130 Active confirmed Problem Obesity complicating in third trimester O99.213 Active confirmed Problem Obesity, unspecified E66.9 Active confirmed 617202365 ALLERGIES No Known Allergies ENCOUNTERS from 1995 to 2021-07-27 Encounter Location Date Provider Diagnosis [facility] [address] [facility] [phone] [place] [address] Jun, Edith Ferreira Obesity complicating in third trimester O99.213 ; False labor before 37 completed weeks of gestation, third trimester O47.03 and 35 weeks gestation of Z3A.35 IMMUNIZATIONS Vaccine Route Administration Date Status TDAP [...] FOR REFERRAL No Information VITAL SIGNS Weight 261 lbs Jun, Weight-kg 118.39 kg Jun, Height 68 in Jun, BMI 39.685 kg/m2 Jun, Blood pressure systolic 116 mm Hg Jun, Blood pressure diastolic 78 mm Hg Jun, MEDICATIONS Medication SIG (Take, Route, Frequency, Duration) Notes Start Da te End Date Status 27-1 MG 1 tablet Orally Once a day Active Latuda 20 MG 1 tablet with food Orally Once a day for 30 day(s) Jan, Active PROCEDURES No Information RESULTS No Results REASON FOR VISIT 2WK [...] in third trimester (ICD-10 - O99.213) Jun, False labor before 37 comple willie weeks of gestation, third trimester (ICD-10 - O47.03) Jun, 35 weeks gestation of (ICD-10 - Z3A.35 ) PLAN OF TREATMENT Next Appt Details 1-2 weeks Reason:Routine Provider Name:Cari Vidalam, 2021-08-02 03:00:00 PM, [address] [facility], , [place], [address], Follow Up:1-2 weeksRoutine Insurance Providers Payer Name Payer Address Payer Phone Insured Name Patient Relati onship to Insured Coverage Start Date Coverage End Date [address] [phone] JOANNA BENÍTEZ self
--- OUTSIDE RECORDS SUMMARY | 2021-08-10 18:50 | CCD | Continuity of Care Document ---
Author Author [facility] Organization Unknown Address [address] [place] [address] Phone [phone] Care Team Providers Care Master Brewer Name Role Phone Chloe Santana MD AUTM [phone] [facility] Sleep Center AUTM [phone] [facility] Behavioral Health AUTM [phone] [facility]-DR. Beckman AUTM [phone] Problems Active Problems Provider Date Bilateral temporomandibular [...] sporadically Allergies, Adverse Reactions, Alerts Active Allergies Criticality Reaction | Severity Comments [...] H/L Range Note Complete Blood Count 05/04/2021 [facility] White Blood Count 9.7 10 Normal 4.0-10.0 [...] % Normal 0-0 Laboratory test finding 05/04/2021 [facility] Glucose Challenge Test 1 Hour 106 mg/dL Normal Less Than 1 40 Type & Screen -Incl Blood Type,Robert,AB SC 05/04/2021 [facility] Blood Type O NEGATIVE Normal AB Screen (Indirect Dougie)Vis NEGATIVE Normal Laboratory test finding 05/04/2021 [facility] Rhogam TRANSFUSED PRODU <SEE NOTE> 1 Medwatch [...] . Procedures Date Code Description Status 06/02/2021 95739 Psychiatric Diag Eval W/Medical Service Completed 04/27/2021 70588 Preventive Counseling Indiv 45 M in Completed 03/14/2021 93027 Psychiatric Diagnostic Evaluatio n Completed 01/14/2021 47509 Office/Outpatient New Low MDM 30 -44 Minutes Completed 01/14/2021 85081 Admin Patient Focused Health Ris k Assessment Instrument Completed 01/14/2021 27037 Brief Emotional/Beha v Assessment W/ Scoring Doc Per Standard Inst Completed Medical Devices Description No Information Available Encounters Description No Information Available Assessments Date Code Description Provider 06/29/2021 F32.89 Other specified depressive episo snehal Ronnie Graham, [facility] 06/29/2021 F41.9 Anxiety disorder, unspecified Sommer Graham, [facility] 06/29/2021 F43.10 Post-traumatic stress disorder, unspecified Ronnie Graham, [facility] 06/08/2021 F32.89 Other specified depressive episo snehal Ronnie Graham, [facility] 06/08/2021 F41.9 Anxiety disorder, unspecified Sommer Graham, [facility] 06/02/2021 F32.89 Other specified depressive episo snehal NIRAJ ColvinC 06/02/2021 F41.9 Anxiety disorder, unspecified NIRAJ PabloC 06/02/2021 F60.9 Personality disorder, unspecifie d Harjeet Delgadillo PA-C 05/24/2021 F32.89 Other specified depressive episo snehal Ronnie Graham, [facility] 05/24/2021 F41.9 Anxiety disorder, unspecified Mi ethan Graham, [facility] 05/24/2021 F43.10 Post-traumatic stress disorder, unspecified Ronnie Graham, [facility] 05/02/2021 F32.89 Other specified depressive episo snehal Ronnie Graham, [facility] 05/02/2021 F41.9 Anxiety disorder, unspecified Sommer Graham, [facility] 05/02/2021 F43.10 Post-traumatic stress disorder, unspecified Ronnie Graham, [facility] 04/27/2021 F32.89 Other specified depressive episo snehal Krystle Duran, [facility] 04/27/2021 F41.9 Anxiety disorder, unspecified An keisha Duran RN 04/27/2021 F43.10 Post-traumatic stress disorder, unspecified Krystle Duran, RN 04/04/2021 F41.9 Anxiety disorder, unspecified Sommer long Lucien, [facility] 04/04/2021 F32.89 Other specified depressive episo snehal Ronnie Graham, [facility] 04/04/2021 F43.10 Post-traumatic stress disorder, unspecified Ronnie Graham, [facility] 03/14/2021 F41.9 Anxiety disorder, unspecified Sommer Graham, [facility] 03/14/2021 F32.89 Other specified depressive episo snehal Ronnie Graham, [facility] 03/14/2021 F43.10 Post-traumatic stress disorder, unspecified Ronniemelania Graham, [facility] 01/14/2021 Z00.00 Encounter for [facility] adult medical examination without abnormal findings Chloe Santana MD 01/14/2021 Z33.1 state, incidental Chloe Santana MD 01/14/2021 G47.8 Other sleep disorders Chloe fernández MD 01/14/2021 F41.9 Anxiety disorder, unspecified An johnny Santana MD 01/14/2021 F32.89 Other specified depressive episo snehal Chloe Santana MD 01/14/2021 M26.603 Bilateral temporomandibular join t disorder, unspecified Chloe Santana MD Plan of Treatment Future Appointment(s):* 08/09/2021 10:00 am - STEVEN Lara at [facility] * 09/01/2021 1:00 pm - Harjeet Delgadillo PA-C at [facility] Functional Status Functional Condition Comment Date Status Glasses Active Mental Status Description No Information Available Referrals Refer to Reason for Referral Status Appt Date [facility] Sleep Center 25-year-old female with rest less sleep, irritability, memory loss, anxiety, depression, PTSD. She scored 4 on [place] scale today. She would like to get a sleep study done. Please evaluate and treat. Thank you. Closed [address] [place], [place] [id number] [phone] [facility] Behavioral Health 25-year-old female with hist ory of anxiety, depression and PTSD. Please evaluate and treat. Thank you. Closed [address] [place] [phone] [facility]-DR. Beckman 25-year-old female with h istory of TMJ disorder. Please evaluate and treat. Thank you. Closed [address] [facility] [address] [phone]
--- OUTSIDE RECORDS SUMMARY | 2021-08-10 18:50 | CCD | Continuity of Care Document ---
Author Author Bee SPENCE PA-C Organization Unknown Address [address] [place] [address] Phone [phone] Care Team Providers Care Surveillance Agent Name Role Phone Chloe Santana MD AUTM [phone] [facility] Sleep Center AUTM [phone] [facility] Behavioral Health AUTM [phone] [facility] Beckman AUTM Problems Active Problems Provider Date Bilateral temporomandibular joint disorder Chloe Santana MD Onset: 01/14/2021 Depressive disorder Chleo Santana MD Onset: 01/14/2021 Anxiety state Chloe [...] H/L Range Note Laboratory test finding 08/03/2021 [facility] Covid-19 <pending> Complete Blood Count 05/04/2021 [facility] White Blood Count 9.7 10 Normal [...] % Normal 0-0 Laboratory test finding 05/04/2021 [facility] Glucose Challenge Test 1 Hour 106 mg/dL Normal Less Than 1 40 Type & Screen -Incl Blood Type,Robert,AB SC 05/04/2021 [facility] Blood Type O NEGATIVE Normal AB Screen (Indirect Dougie)Vis NEGATIVE Normal Laboratory test finding 05/04/2021 [facility] Rhogam TRANSFUSED PRODU <SEE NOTE> 1 [...] . Procedures Date Code Description Status 06/02/2021 28082 Psychiatric Diag Eval W/Medical Service Completed 04/27/2021 38977 Preventive Counseling Indiv 45 M in Completed 03/14/2021 72246 Psychiatric Diagnostic Evaluatio n Completed Medical Devices Description No Information Available Encounters Description No Information Available Assessments Date Code Description Provider 06/29/2021 F32.89 Other specified depressive episo snehal Ronnie Mcgraw, [facility] 06/29/2021 F41.9 Anxiety disorder, unspecified Sommer Mcgraw, [facility] 06/29/2021 F43.10 Post-traumatic stress disorder, unspecified Ronnie Mcgraw, [facility] 06/08/2021 F32.89 Other specified depressive episo snehal Ronnie Mcgraw, [facility] 06/08/2021 F41.9 Anxiety disorder, unspecified Mi ethan Mcgraw, [facility] 06/02/2021 F32.89 Other specified depressive episo snehal NIRAJ ColvinC 06/02/2021 F41.9 Anxiety disorder, unspecified Ca JÚNIOR Encarnacion-C 06/02/2021 F60.9 Personality disorder, unspecifie d Harjeet Delgadillo PA-C 05/24/2021 F32.89 Other specified depressive episo snehal Ronnie Mcgraw, [facility] 05/24/2021 F41.9 Anxiety disorder, unspecified Sommer Mcgraw, [facility] 05/24/2021 F43.10 Post-traumatic stress disorder, unspecified Ronnie Mcgraw, [facility] 05/02/2021 F32.89 Other specified depressive episo snehal Ronnie Mcgraw, [facility] 05/02/2021 F41.9 Anxiety disorder, unspecified Mi ethan Mcgraw, [facility] 05/02/2021 F43.10 Post-traumatic stress disorder, unspecified Ronnie Lucien, [facility] 04/27/2021 F32.89 Other specified depressive episo snehal Krystle Duran, [facility] 04/27/2021 F41.9 Anxiety disorder, unspecified An keisha Duran RN 04/27/2021 F43.10 Post-traumatic stress disorder, unspecified Krystle Duran RN 04/04/2021 F41.9 Anxiety disorder, unspecified Mi ethan Mcgraw, [facility] 04/04/2021 F32.89 Other specified depressive episo snehal Ronnie Mcgraw, [facility] 04/04/2021 F43.10 Post-traumatic stress disorder, unspecified Ronnie Mcgraw, [facility] 03/14/2021 F41.9 Anxiety disorder, unspecified Sommer long Lucien, [facility] 03/14/2021 F32.89 Other specified depressive episo snehal Ronnie Mcgraw, [facility] 03/14/2021 F43.10 Post-traumatic stress disorder, unspecified STEVEN Lara Plan of Treatment Future Appointment(s):* 08/09/2021 10:00 am - STEVEN Lara at [facility] * 09/01/2021 1:00 pm - Harjeet Delgadillo PA-C at [facility] Functional Status Functional Condition Comment Date Status Glasses Active Mental Status Description No Information Available Referrals Description No Information Available
--- OUTSIDE RECORDS SUMMARY | 2021-08-10 18:50 | CCD ---
Author Author [facility] Organization [facility] Address Unknown Phone Unavailable Care Team Providers Care Dental Office Assistant Name Role Phone Edith Ferreira Unavailable PROBLEMS Type Condition ICD9-CM Code [id number] Code Onset Dates Condition S tatus W/U Status Risk SNOMED Code Notes Problem Supervision of other normal Z34.80 Ac tive confirm 882322366 Problem Other obesity due to excess calories E66.09 Act alma confirmed 966310293 Problem BMI 35.0-35.9,adult Z68.35 Active confirmed 901867400 Problem Obesity affecting in second trimester O9 9.212 Active confirmed 200244956495 Problem Depression with anxiety F41.8 Active confirmed 961738395 Problem Anxiety with depression F41.8 Active confirmed 348179101 Problem Obesity complicating in first trimester O99.211 Active confirmed 185577630401 Problem Obesity complicating , third trimester O9 9.213 Active confirmed 812370259051 Problem BMI 34.0-34.9,adult Z68.34 Active confirmed 327146023 Problem PTSD (post-traumatic stress disorder) F43.10 Ac tive confirmed 07692221 Problem Maternal care for anti-D [Rh ] antibodies, third trimester, not applicable or unspecified O36.0130 Active confirmed Problem Obesity complicating in third trimester O99.213 Active confirmed Problem Obesity, unspecified E66.9 Active confirmed 712050730 ALLERGIES No Known Allergies ENCOUNTERS from 1995 to 2021-08-04 Encounter Location Date Provider Diagnosis [facility] [address] Women[facility] Well[facility] Breast [facility] [facility] [phone] [place] [address] Jul, Edith Ferreira IMMUNIZATIONS Vaccine Route Administration Date Status TDAP [...] Information RESULTS No Results REASON FOR VISIT No Information MEDICAL (GENERAL) HISTORY Type Description Date Medical History depression/anxiety/ptsd Medical History sleep apena Surgical History T&A removed Surgical History wisdom teeth extraction Hospitalization History depression Goals Section No Information Health Concerns No Information MEDICAL EQUIPMENT No Information MENTAL STATUS No Information FUNCTIONAL STATUS No Information ASSESSMENTS No Information PLAN OF TREATMENT Next Appt Details Provider Name:Edith Ferreira, 2020-10-2 0 08:40:00 AM, [address] [facility], , [place], [address], Insurance Providers Payer Name Payer Address Payer Phone Insured Name Patient Relati onship to Insured Coverage Start Date Coverage End Date [place] [phone] JOANNA BENÍTEZ self
--- OUTSIDE RECORDS SUMMARY | 2021-08-10 18:50 | CCD ---
Author Author [facility] Organization [facility] Address Unknown Phone Unavailable Care Team Providers Care Needle Grader Name Role Phone Cari Carr Unavailable PROBLEMS Type Condition ICD9-CM Code [id number] Code Onset Dates Condition S tatus W/U Status Risk SNOMED Code Notes Problem Supervision of other normal Z34.80 Ac tive confirm 864230535 Problem Other obesity due to excess calories E66.09 Act alma confirmed 572794548 Problem BMI 35.0-35.9,adult Z68.35 Active confirmed 229960891 Problem Obesity affecting in second trimester O9 9.212 Active confirmed 446971256674 Problem Depression with anxiety F41.8 Active confirmed 860568607 Problem Anxiety with depression F41.8 Active confirmed 251805515 Problem Obesity complicating in first trimester O99.211 Active confirmed 539903049412 Problem Obesity complicating , third trimester O9 9.213 Active confirmed 429084534341 Problem BMI 34.0-34.9,adult Z68.34 Active confirmed 905044197 Problem PTSD (post-traumatic stress disorder) F43.10 Ac tive confirmed 68191117 Problem Maternal care for anti-D [Rh ] antibodies, third trimester, not applicable or unspecified O36.0130 Active confirmed Problem Obesity complicating in third trimester O99.213 Active confirmed Problem Obesity, unspecified E66.9 Active confirmed 187490844 ALLERGIES No Known Allergies ENCOUNTERS from 1995 to 2021-08-03 Encounter Location Date Provider Diagnosis [facility] Women[facility] Well[facility] Breast Care [address] [place] [address] [place] [address] Jul, Cari Carr 39 weeks gestatio n of Z3A.39 ; Uterine size-date discrepancy in third trimester O26.843 and Uterine size date discrepancy O26.849 IMMUNIZATIONS Vaccine Route Administration Date Status TDAP [...] FOR REFERRAL No Information VITAL SIGNS Weight 268.4 lbs Jul, Weight-kg 121.74 kg Jul, Height 68 in Jul, BMI 40.81 kg/m2 Jul, Blood pressure systolic 122 mm Hg Jul, Blood pressure diastolic 76 mm Hg Jul, MEDICATIONS Medication SIG (Take, Route, Frequency, Duration) [...] Treatment Notes Treatm ent Clinical Notes Jul, 39 weeks gestation of (ICD-10 - Z3A.39 ) Jul, Uterine size-date discrepanc y in third trimester (ICD-10 - O26.843) Jul, Uterine size date discrepancy (ICD-10 - O26.849) PLAN OF TREATMENT Treatment Notes Test Name Order Date WWBC OBS COMPLETE US 2021-08-02 Next Appt Details 1 Week Reason:- Routine follow up Provider Name:Edith Ferreira, 2021-10-2 0 08:40:00 AM, [address] [facility], , [place], [address], Follow Up:1 Week- Routine follow up Insurance Providers Payer Name Payer Address Payer Phone Insured Name Patient Relati onship to Insured Coverage Start Date Coverage End Date [address] [phone] JOANNA BENÍTEZ self
--- OUTSIDE RECORDS SUMMARY | 2021-08-10 18:50 | CCD | Continuity of Care Document ---
Author Author Bee SPENCE PA-C Organization Unknown Address [address] [place] [address] Phone [phone] Care Team Providers Care Pole Framer Machine Name Role Phone Chloe Santana MD AUTM [phone] [facility] Sleep Center AUTM [phone] [facility] Behavioral Health AUTM [phone] [facility] Beckman AUTM Problems Active [...] H/L Range Note Laboratory test finding 08/03/2021 [facility] Covid-19 <pending> Complete Blood Count 05/04/2021 [facility] White Blood Count 9.7 10 Normal 4.0-10.0 [...] % Normal 0-0 Laboratory test finding 05/04/2021 [facility] Glucose Challenge Test 1 Hour 106 mg/dL Normal Less Than 1 40 Type & Screen -Incl Blood Type,Robert,AB SC 05/04/2021 [facility] Blood Type O NEGATIVE Normal AB Screen (Indirect Dougie)Vis NEGATIVE Normal Laboratory test finding 05/04/2021 [facility] Rhogam TRANSFUSED PRODU <SEE NOTE> 1 [employer] [...] . Procedures Date Code Description Status 06/02/2021 92695 Psychiatric Diag Eval W/Medical Service Completed 04/27/2021 56944 Preventive Counseling Indiv 45 M in Completed 03/14/2021 88569 Psychiatric Diagnostic Evaluatio n Completed Medical Devices Description No Information Available Encounters Description No Information Available Assessments Date Code Description Provider 06/29/2021 F32.89 Other specified depressive episo snehal Ronnie Mcgraw, [facility] 06/29/2021 F41.9 Anxiety disorder, unspecified Sommer Mcgraw, [facility] 06/29/2021 F43.10 Post-traumatic stress disorder, unspecified Ronnie Mcgraw, [facility] 06/08/2021 F32.89 Other specified depressive episo snehal Ronnie Mcgraw, [facility] 06/08/2021 F41.9 Anxiety disorder, unspecified Mi ethan Mcgraw, [facility] 06/02/2021 F32.89 Other specified depressive episo snehal NIRAJ ColvinC 06/02/2021 F41.9 Anxiety disorder, unspecified Ca JÚNIOR Encarnacion-C 06/02/2021 F60.9 Personality disorder, unspecifie d Harjeet Delgadillo PA-C 05/24/2021 F32.89 Other specified depressive episo snehal Ronnie Mcgraw, [facility] 05/24/2021 F41.9 Anxiety disorder, unspecified Sommer Mcgraw, [facility] 05/24/2021 F43.10 Post-traumatic stress disorder, unspecified Ronnie Mcgraw, [facility] 05/02/2021 F32.89 Other specified depressive episo snehal Ronnie Mcgraw, [facility] 05/02/2021 F41.9 Anxiety disorder, unspecified Mi ethan Mcgraw, [facility] 05/02/2021 F43.10 Post-traumatic stress disorder, unspecified Ronnie Lucien, [facility] 04/27/2021 F32.89 Other specified depressive episo snehal Krystle Duran, [place] 04/27/2021 F41.9 Anxiety disorder, unspecified An keisha Duran RN 04/27/2021 F43.10 Post-traumatic stress disorder, unspecified Krystle Duran RN 04/04/2021 F41.9 Anxiety disorder, unspecified Mi ethan Mcgraw, [facility] 04/04/2021 F32.89 Other specified depressive episo snehal Ronnie Mcgraw, [facility] 04/04/2021 F43.10 Post-traumatic stress disorder, unspecified Ronnie Mcgraw, [facility] 03/14/2021 F41.9 Anxiety disorder, unspecified Sommer long Lucien, [facility] 03/14/2021 F32.89 Other specified depressive episo snehal Ronnie Mcgraw, [facility] 03/14/2021 F43.10 Post-traumatic stress disorder, unspecified STEVEN Lara Plan of Treatment Future Appointment(s):* 08/09/2021 10:00 am - STEVEN Lara at [facility] * 09/01/2021 1:00 pm - Harjeet Delgadillo PA-C at [facility] Functional Status Functional Condition Comment Date Status Glasses Active Mental Status Description No Information Available Referrals Description No Information Available
--- OUTSIDE RECORDS SUMMARY | 2021-08-10 18:50 | CCD | Continuity of Care Document ---
Author Author Bee SPENCE PA-C Organization Unknown Address [address] [place] [address] Phone [phone] Care Team Providers Care Allied Health Professional Name Role Phone Chloe Santana MD AUTM [phone] [facility] Sleep Center AUTM [phone] [facility] Behavioral Health AUTM [phone] [facility] Beckman AUTM Problems Active [...] H/L Range Note Laboratory test finding 08/03/2021 [facility] Covid-19 <pending> Complete Blood Count 05/04/[address] [facility] White Blood Count 9.7 10 [...] Normal 0-0 Laboratory test finding 05/04/[address] [facility] Glucose Challenge Test 1 Hour 106 mg/dL Normal Less Than 1 40 Type & Screen -Incl Blood Type,Robert,AB SC 05/04/[address] [facility] Blood Type O NEGATIVE Normal AB Screen (Indirect Dougie)Vis NEGATIVE Normal Laboratory test finding 05/04/[address] [facility] Rhogam TRANSFUSED PRODU <SEE NOTE> [...] . Procedures Date Code Description Status 06/02/2021 45949 Psychiatric Diag Eval W/Medical Service Completed 04/27/2021 77386 Preventive Counseling Indiv 45 M in Completed 03/14/2021 44870 Psychiatric Diagnostic Evaluatio n Completed Medical Devices Description No Information Available Encounters Description No Information Available Assessments Date Code Description Provider 06/29/2021 F32.89 Other specified depressive episo snehal Ronnie Mcgraw, [facility] 06/29/2021 F41.9 Anxiety disorder, unspecified Sommer Mcgraw, [facility] 06/29/2021 F43.10 Post-traumatic stress disorder, unspecified Ronnie Mcgraw, [facility] 06/08/2021 F32.89 Other specified depressive episo snehal Ronnie Mcgraw, [facility] 06/08/2021 F41.9 Anxiety disorder, unspecified Mi ethan Mcgraw, [facility] 06/02/2021 F32.89 Other specified depressive episo snehal NIRAJ ColvinC 06/02/2021 F41.9 Anxiety disorder, unspecified Ca JÚNIOR Encarnacion-C 06/02/2021 F60.9 Personality disorder, unspecifie d Harjeet Delgadillo PA-C 05/24/2021 F32.89 Other specified depressive episo snehal Ronnie Mcgraw, [facility] 05/24/2021 F41.9 Anxiety disorder, unspecified Sommer Mcgraw, [facility] 05/24/2021 F43.10 Post-traumatic stress disorder, unspecified Ronnie Mcgraw, [facility] 05/02/2021 F32.89 Other specified depressive episo snehal Ronnie Mcgraw, [facility] 05/02/2021 F41.9 Anxiety disorder, unspecified Mi ethan Mcgraw, [facility] 05/02/2021 F43.10 Post-traumatic stress disorder, unspecified Ronnie Lucien, [facility] 04/27/2021 F32.89 Other specified depressive episo snehal Krystle Duran, [place] 04/27/2021 F41.9 Anxiety disorder, unspecified An keisha Duran RN 04/27/2021 F43.10 Post-traumatic stress disorder, unspecified Krystle Duran RN 04/04/2021 F41.9 Anxiety disorder, unspecified Mi ethan Mcgraw, [facility] 04/04/2021 F32.89 Other specified depressive episo snehal Ronnie Mcgraw, [facility] 04/04/2021 F43.10 Post-traumatic stress disorder, unspecified Ronnie Mcgraw, [facility] 03/14/2021 F41.9 Anxiety disorder, unspecified Sommer long Lucien, [facility] 03/14/2021 F32.89 Other specified depressive episo snehal Ronine Mcgraw, [facility] 03/14/2021 F43.10 Post-traumatic stress disorder, unspecified STEVEN Lara Plan of Treatment Future Appointment(s):* 08/09/2021 10:00 am - STEVEN Lara at [facility] * 09/01/2021 1:00 pm - Harjeet Delgadillo PA-C at [facility] Functional Status Functional Condition Comment Date Status Glasses Active Mental Status Description No Information Available Referrals Description No Information Available
--- OUTSIDE RECORDS SUMMARY | 2021-08-10 18:50 | CCD | Continuity of Care Document ---
Author Author Bee [facility]RA[facility] Organization Unknown Address [address] [place] [address] Phone [phone] Care Team Providers Care Clean In Places Operator Name Role Phone Chloe Santana MD AUTM [phone] [facility] Sleep Center AUTM [phone] [facility] Behavioral Health AUTM [phone] [facility] Beckman AUTM [phone] Problems Active Problems Provider Date Bilateral temporomandibular [...] 01/14/2021 [facility] Unable to assess criticality 01/14/2021 [place] Unable to assess criticality 04/27/2021 Medications Active [...] H/L Range Note Laboratory test finding 08/03/2021 [facility] Covid-19 <pending> Complete Blood Count 05/04/2021 [facility] White Blood Count 9.7 10 [...] % Normal 0-0 Laboratory test finding 05/04/2021 [facility] Glucose Challenge Test 1 Hour 106 mg/dL Normal Less Than 1 40 Type & Screen -Incl Blood Type,Robert,AB SC 05/04/2021 [facility] Blood Type O NEGATIVE Normal AB Screen (Indirect Dougie)Vis NEGATIVE Normal Laboratory test finding 05/04/2021 [facility] Rhogam TRANSFUSED PRODU <SEE NOTE> [...] . Procedures Date Code Description Status 06/02/2021 74306 Psychiatric Diag Eval W/Medical Service Completed 04/27/2021 89894 Preventive Counseling Indiv 45 M in Completed 03/14/2021 10211 Psychiatric Diagnostic Evaluatio n Completed Medical Devices Description No Information Available Encounters Description No Information Available Assessments Date Code Description Provider 08/09/2021 F32.89 Other specified depressive episo snehal Ronnie Graham, [facility] 08/09/2021 F41.9 Anxiety disorder, unspecified Sommer Graham, [facility] 08/09/2021 F43.10 Post-traumatic stress disorder, unspecified Ronnie Graham, [facility] 06/29/2021 F32.89 Other specified depressive episo snehal Ronnie Graham, [facility] 06/29/2021 F41.9 Anxiety disorder, unspecified Mi ethan White, [facility] 06/29/2021 F43.10 Post-traumatic stress disorder, unspecified Ronnie Graham, [facility] 06/08/2021 F32.89 Other specified depressive episo snehal Ronnie Graham, [facility] 06/08/2021 F41.9 Anxiety disorder, unspecified Mi ethan White, [facility] 06/02/2021 F32.89 Other specified depressive episo snehal NIRAJ ColvinC 06/02/2021 F41.9 Anxiety disorder, unspecified Ca bhumi Delgadillo, [facility] 06/02/2021 F60.9 Personality disorder, unspecifie d Harjeet Delgadillo, PA-C 05/24/2021 F32.89 Other specified depressive episo snehal Ronnie Graham, [facility] 05/24/2021 F41.9 Anxiety disorder, unspecified Mi ethan White, [facility] 05/24/2021 F43.10 Post-traumatic stress disorder, unspecified Ronnie White, [facility] 05/02/2021 F32.89 Other specified depressive episo snehal Ronnie Graham, [facility] 05/02/2021 F41.9 Anxiety disorder, unspecified Mi ethan White, [facility] 05/02/2021 F43.10 Post-traumatic stress disorder, unspecified Ronnie Graham, [facility] 04/27/2021 F32.89 Other specified depressive episo snehal Krystle Duran RN 04/27/2021 F41.9 Anxiety disorder, unspecified An keisha Duran, RN 04/27/2021 F43.10 Post-traumatic stress disorder, unspecified Krystle Duran, RN 04/04/2021 F41.9 Anxiety disorder, unspecified Sommer Graham, [facility] 04/04/2021 F32.89 Other specified depressive episo snehal Ronnie Graham, [facility] 04/04/2021 F43.10 Post-traumatic stress disorder, unspecified Ronnie Graham, [facility] 03/14/2021 F41.9 Anxiety disorder, unspecified Sommer Graham, [facility] 03/14/2021 F32.89 Other specified depressive episo snehal Ronnie Graham, [facility] 03/14/2021 F43.10 Post-traumatic stress disorder, unspecified TSEVEN Lara Plan of Treatment Future Appointment(s):* 09/01/2021 1:30 pm - STEVEN Lara at [facility] * 09/01/2021 1:00 pm - Harjeet Delgadillo PA-C at [facility] Functional Status Functional Condition Comment Date Status Glasses Active Mental Status Description No Information Available Referrals Description No Information Available
--- OUTSIDE RECORDS SUMMARY | 2021-08-10 18:50 | CCD ---
Author Author [facility] Organization [facility] Address Unknown Phone Unavailable Care Team Providers Care Materials Director Name Role Phone Frantz Paredes Unavailable PROBLEMS Type Condition ICD9-CM Code [id number] Code Onset Dates Condition S tatus W/U Status Risk SNOMED Code Notes Problem Supervision of other normal Z34.80 Ac tive confirm 188851803 Problem Other obesity due to excess calories E66.09 Act alma confirmed 274249930 Problem BMI 35.0-35.9,adult Z68.35 Active confirmed 479886359 Problem Obesity affecting in second trimester O9 9.212 Active confirmed 794406974842 Problem Depression with anxiety F41.8 Active confirmed 219619244 Problem Anxiety with depression F41.8 Active confirmed 190080542 Problem Obesity complicating in first trimester O99.211 Active confirmed 813874399779 Problem Obesity complicating , third trimester O9 9.213 Active confirmed 166846840234 Problem BMI 34.0-34.9,adult Z68.34 Active confirmed 662905879 Problem PTSD (post-traumatic stress disorder) F43.10 Ac tive confirmed 69006170 Problem Maternal care for anti-D [Rh ] antibodies, third trimester, not applicable or unspecified O36.0130 Active confirmed Problem Obesity complicating in third trimester O99.213 Active confirmed Problem Obesity, unspecified E66.9 Active confirmed [id number] ALLERGIES No Known Allergies ENCOUNTERS from 1995 to 2021-07-31 Encounter Location Date Provider Diagnosis [facility] [address] [place] [address] [place] [address] Jul, Frantz Paredes Encounter for prenat al care in third trimester of first Z34.03 [...] FOR REFERRAL No Information VITAL SIGNS Weight 267.2 lbs Jul, Height 68 in Jul, BMI 40.628 kg/m2 Jul, Blood pressure systolic 122 mm Hg Jul, Blood pressure diastolic 78 mm Hg Jul, MEDICATIONS Medication SIG (Take, [...] Treatment Notes Treatm ent Clinical Notes Jul, Encounter for care in third trimester of first (ICD-10 - Z34.03) PLAN OF TREATMENT Next Appt Details Provider Name:Cari Carr, 2021-08-02 03:00:00 PM, [address] [facility], , [place], [address], Insurance Providers Payer Name Payer Address Payer Phone Insured Name Patient Relati onship to Insured Coverage Start Date Coverage End Date [place] [id number] [phone] JOANNA BENÍTEZ self
--- OUTSIDE RECORDS SUMMARY | 2021-08-10 18:51 | CCD ---
Author Author [facility] Organization [facility] Address Unknown Phone Unavailable Care Team Providers Care Technical Account Executive Name Role Phone Alissa Sullivan Unavailable PROBLEMS Type Condition ICD9-CM Code [id number] Code Onset Dates Condition S tatus W/U Status Risk SNOMED Code Notes Problem Other obesity due to excess calories E66.09 Act alma confirmed [id number] Problem Supervision of other normal Z34.80 Ac tive confirm 960391810 Problem Depression with anxiety F41.8 Active confirmed 641566720 Problem PTSD (post-traumatic stress disorder) F43.10 Ac tive confirmed 85329832 Problem BMI 34.0-34.9,adult Z68.34 Active confirmed 783466828 Problem Obesity complicating in first trimester O99.211 Active confirmed 800564382399 Problem Obesity affecting in second trimester O9 9.212 Active confirmed 518485634666 Problem BMI 35.0-35.9,adult Z68.35 Active confirmed 270247927 ALLERGIES No Known Allergies ENCOUNTERS from 1995 to 2021-05-26 Encounter Location Date Provider Diagnosis [facility] [address] [place] [address] [place] [address] Apr, Alissa Sullivan Mental disorder affe cting in second trimester O99.342 ; Depression with anxiety F41.8 ; Obesity affecting in second trimester O99.212 ; 26 weeks gestation of Z3A.26 ; Other obesity due to excess calories E66.09 and PTSD (post-traumatic stress disorder) F43.10 IMMUNIZATIONS No Information SOCIAL HISTORY Tobacco Use: Social History Observation Description Date Details (start date - stop date) Former Smoker Sex Assigned At : Social History Observation Description Sex Assigned At Unknown Domestic Violence: Question Answer Notes Status: No history of abuse Tobacco Use: Question Answer Notes Are you a: former smoker REASON FOR REFERRAL No Information VITAL SIGNS Weight 241.6 lbs Apr, Height 68 in Apr, BMI 36.735 kg/m2 Apr, Blood pressure systolic 124 mm Hg Apr, Blood pressure diastolic 72 mm Hg Apr, MEDICATIONS Medication SIG (Take, Route, Frequency, Duration) Notes Start Da te End Date Status Latuda 20 MG 1 tablet with food Orally Once a day for 30 day(s) Jan, Active 27-1 MG 1 tablet Orally Once a day Active PROCEDURES No Information RESULTS Component Value Reference Range CBC - Complete Blood Count Reviewed date:05/04/2021 16:32:30 Interpretation: Performing Lab:[facility] LABORATORY [address] [facility] [address] , ,[place] [address] WHITE BLOOD COUNT 9.7 4.0-10.0 RED BLOOD COUNT 4.01 4.00-5.40 HEMOGLOBIN 13.0 12.0-15.5 HEMATOCRIT 38.5 36.0-47.0 MEAN CORPUSCULAR VOLUME 96.0 80.0-96.0 MEAN CORPUSCULAR HEMOGLOBIN 32.4 27.0-33.0 MEAN CORPUSCULAR HGB CONC 33.8 32.0-36.5 RED CELL DISTRIBUTION WIDTH 13.0 11.5-14.5 PLATELET COUNT, AUTOMATED 320 150-450 Glucose Challenge Test 1 Hour Reviewed date:05/04/2021 16:32:32 Interpretation: Performing Lab:[facility] LABORAT[facility] [address] [facility] [address] , ,[place] [address] GLUCOSE CHALLENGE TEST 1 HOUR 106 LESS THAN 140 Type and Screen (D Rh Antibody Screen) Reviewed date:05/11/2021 16:37:11 Interpretation: Performing Lab:[facility] LABORATORY [address] [facility] [address] , ,[place] [address] BLOOD TYPE O NEGATIVE AB SCREEN (INDIRECT JOSE)VIS NEGATIVE RHOGAM Reviewed date:05/11/2021 16:37:16 Interpretation: Performing Lab:[facility], ,[place] [address] RHOGAM TRANSFUSED PRODUCT: RHOGAM COUNT: 1 REASON FOR VISIT 4WK PN MEDICAL (GENERAL) HISTORY Type Description Date Medical History depression/anxiety/ptsd Medical History sleep apena Surgical History T&A removed Surgical History wisdom teeth extraction Hospitalization History depression Goals Section No Information Health Concerns No Information MEDICAL EQUIPMENT No Information MENTAL STATUS No Information FUNCTIONAL STATUS No Information ASSESSMENTS Encounter Date Diagnosis Assessment Notes Treatment Notes Treatm ent Clinical Notes Apr, Mental disorder affecting pr egnancy in second trimester (ICD-10 - O99.342) Apr, Depression with anxiety (ICD-10 - F41.8) Apr, Obesity affecting in second tr imester (ICD-10 - O99.212) Apr, 26 weeks gestation of (ICD-10 - Z3A.26 ) Apr, Other obesity due to excess calories (ICD-10 - E 66.09) Apr, PTSD (post-traumatic stress disorder) (ICD-10 - F43.10) PLAN OF TREATMENT Treatment Notes Test Name Order Date AB SCREEN (INDIRECT JOSE)GEL Antibody Screen 2021-04 RH ONLY RHOGAM 2021-05-04 Next Appt Details 4 Weeks Reason:PN Provider Name:Cari Robbinsreed, 2021-06-01 10:00:00 AM, [address] [facility], , [place], [address], Follow Up:4 WeeksPN Insurance Providers Payer Name Payer Address Payer Phone Insured Name Patient Relati onship to Insured Coverage Start Date Coverage End Date [place] [phone] JOANNA BENÍTEZ self
--- OUTSIDE RECORDS SUMMARY | 2021-08-10 18:51 | CCD | Continuity of Care Document ---
Author Author [facility] Organization Unknown Address [address] [place] [address] Phone [phone] Care Team Providers Care [facility] Assistant Director Name Role Phone Chloe Santana MD AUT[facility] [phone] [facility] [phone] [facility] Behavioral [facility] [phone] [facility]-DR. Beckman AUTM Problems Active [...] H/L Range Note Complete Blood Count 05/04/2021 [facility] White Blood Count 9.7 10 [...] % Normal 0-0 Laboratory test finding 05/04/2021 [facility] Glucose Challenge Test 1 Hour 106 mg/dL Normal Less Than 1 40 Type & Screen -Incl Blood Type,Robert,AB SC 05/04/2021 [facility] Blood Type O NEGATIVE Normal AB Screen (Indirect Dougie)Vis NEGATIVE Normal Laboratory test finding 05/04/2021 [facility] Rhogam TRANSFUSED PRODU <SEE NOTE> [...] call . Procedures Date Code Description Status 04/27/2021 77734 Preventive Counseling Indiv 45 M in Completed 03/14/2021 77319 Psychiatric Diagnostic Evaluatio n Completed 01/14/2021 17168 Office/Outpatient [facility] 30 -44 Minutes Completed 01/14/2021 75403 Admin Patient Focused Health Ris k Assessment Instrument Completed 01/14/2021 28986 Brief Emotional/Beha v Assessment W/ Scoring Doc Per Standard Inst Completed Medical Devices Description No Information Available Encounters Description No Information Available Assessments Date Code Description Provider 05/24/2021 F32.89 Other specified depressive episo snehal Ronnie Lucien, [facility] 05/24/2021 F41.9 Anxiety disorder, unspecified Mi ethan Graham, [facility] 05/24/2021 F43.10 Post-traumatic stress disorder, unspecified Ronnie Lucien, [facility] 05/02/2021 F32.89 Other specified depressive episo snehal Ronnie Lucien, [facility] 05/02/2021 F41.9 Anxiety disorder, unspecified Mi ethan Graham, [facility] 05/02/2021 F43.10 Post-traumatic stress disorder, unspecified Ronnie Lucien, [facility] 04/27/2021 F32.89 Other specified depressive episo snehal Krystle Duran, RN 04/27/2021 F41.9 Anxiety disorder, unspecified An keisha Duran, RN 04/27/2021 F43.10 Post-traumatic stress disorder, unspecified Krystle Duran, RN 04/04/2021 F41.9 Anxiety disorder, unspecified Mi ethan Graham, [facility] 04/04/2021 F32.89 Other specified depressive episo snehal Ronnie Lucien, [facility] 04/04/2021 F43.10 Post-traumatic stress disorder, unspecified Ronnie White, [facility] 03/14/2021 F41.9 Anxiety disorder, unspecified Mi ethan Lucien, [facility] 03/14/2021 F32.89 Other specified depressive episo snehal Ronnie Lucien, [facility] 03/14/2021 F43.10 Post-traumatic stress disorder, unspecified Ronnie Lucien, [facility] 01/14/2021 Z00.00 Encounter for genera l adult [...] Santana MD Plan of Treatment Future Appointment(s):* 06/02/2021 12:00 pm - Harjeet Delgadillo PA-C at [facility] Functional Status Functional Condition Comment Date Status Glasses Active Mental Status Description No Information Available Referrals Refer to Reason for Referral Status Appt Date [facility] 25-year-old female with rest less sleep, irritability, memory loss, anxiety, depression, PTSD. She scored 4 on [place] scale today. She would like to get a sleep study done. Please evaluate and treat. Thank you. Closed [address] [place] [address] [phone] [facility] 25-year-old female with hist ory of anxiety, depression and PTSD. Please evaluate and treat. Thank you. Closed [address] [place] [address] [phone] [facility]-DR. Beckman 25-year-old female with h istory of TMJ disorder. Please evaluate and treat. Thank you. Closed [address] [facility] [address] [phone]
--- OUTSIDE RECORDS SUMMARY | 2021-08-10 18:51 | CCD ---
Author Author [facility] Organization [facility] Address Unknown Phone Unavailable Care Team Providers Care Curb Worker Name Role Phone MAURICIO GRAHAM Unavailable Unavailable BEBE, JOSÉ MIGUEL JOSE MARIA PA Unavailable Unavailable BEBE, JOSÉ MIGUEL JOSE MARIA PA Unavailable Unavailable BEBE, JOSÉ MIGUEL JOSE MARIA PA Unavailable Unavailable BEBE, JOSÉ MIGUEL JOSE MARIA PA Unavailable Unavailable BEBE, JOSÉ MIGUEL JOSE MARIA PA Unavailable Unavailable BEBE, JOSÉ MIGUEL JOSE MARIA PA Unavailable Unavailable BEBE, JOSÉ MIGUEL JOSE MARIA PA Unavailable Unavailable BEBE, JOSÉ MIGUEL JOSE MARIA PA Unavailable Unavailable BEBE, JOSÉ MIGUEL JOSE MARIA PA Unavailable Unavailable BEBE, JOSÉ MIGUEL JOSE MARIA PA Unavailable Unavailable BEBE, JOSÉ MIGUEL JOSE MARIA PA Unavailable Unavailable BEBE, JOSÉ MIGUEL JOSE MARIA PA Unavailable Unavailable BEBE, JOSÉ MIGUEL JOSE MARIA PA Unavailable Unavailable BEBE, JOSÉ MIGUEL JOSE MARIA PA Unavailable Unavailable BEBE, JOSÉ MIGUEL JOSE MARIA PA Unavailable Unavailable BEBE, JOSÉ MIGUEL JOSE MARIA PA Unavailable Unavailable BEBE, JOSÉ MIGUEL JOSE MARIA PA Unavailable Unavailable BEBE, JOSÉ MIGUEL JOSE MARIA PA Unavailable Unavailable BEBE, JOSÉ MIGUEL JOSE MARIA PA Unavailable Unavailable BEBE, JOSÉ MIGUEL JOSE MARIA PA Unavailable Unavailable BEBE, JOSÉ MIGUEL JOSE MARIA PA Unavailable Unavailable BEBE, JOSÉ MIGUEL JOSE MARIA PA Unavailable Unavailable Richy Ramon MD Unavailable Unavailable Richy Ramon MD Unavailable Unavailable Richy Ramon MD Unavailable Unavailable Richy Ramon MD Unavailable Unavailable Richy Ramon MD Unavailable Unavailable Richy Ramon MD Unavailable Unavailable Richy Ramon MD Unavailable Unavailable Richy Ramon MD Unavailable Unavailable Richy Ramon MD Unavailable Unavailable Richy Ramon MD Unavailable Unavailable Richy Ramon MD Unavailable Unavailable Richy Ramon MD Unavailable Unavailable Richy Ramon MD Unavailable Unavailable Richy Ramon MD Unavailable Unavailable Richy Ramon MD Unavailable Unavailable Richy Ramon MD Unavailable Unavailable Richy Ramon MD Unavailable Unavailable Richy Ramon MD Unavailable Unavailable Richy Ramon MD Unavailable Unavailable Richy Ramon MD Unavailable Unavailable Richy Ramon MD Unavailable Unavailable Richy Ramon MD Unavailable Unavailable Richy Ramon MD Unavailable Unavailable Richy Ramon MD Unavailable Unavailable Richy Ramon MD Unavailable Unavailable Richy Ramon MD Unavailable Unavailable GUILLORY, J CHEVY PA Unavailable Unavailable GUILLORY, J CHEVY PA Unavailable Unavailable GUILLORY, J CHEVY PA Unavailable Unavailable GUILLORY, J CHEVY PA Unavailable Unavailable GUILLORY, J CHEVY PA Unavailable Unavailable GUILLORY, J CHEVY PA Unavailable Unavailable GUILLORY, J CHEVY PA Unavailable Unavailable GUILLORY, J CHEVY PA Unavailable Unavailable GUILLORY, J CHEVY PA Unavailable Unavailable GUILLORY, J CHEVY PA Unavailable Unavailable GUILLORY, J CHEVY PA Unavailable Unavailable GUILLORY, J CHEVY PA Unavailable Unavailable GUILLORY, J CHEVY PA Unavailable Unavailable GUILLORY, J CHEVY PA Unavailable Unavailable GUILLORY, J CHEVY PA Unavailable Unavailable GUILLORY, J CHEVY PA Unavailable Unavailable GUILLORY, J CHEVY PA Unavailable Unavailable GUILLORY, J CHEVY PA Unavailable Unavailable GUILLORY, J CHEVY PA Unavailable Unavailable GUILLORY, J CHEVY PA Unavailable Unavailable GUILLORY, J CHEVY PA Unavailable Unavailable GUILLORY, J CHEVY PA Unavailable Unavailable GUILLORY, J CHEVY PA Unavailable Unavailable GUILLORY, J CHEVY PA Unavailable Unavailable GUILLORY, J CHEVY PA Unavailable Unavailable GUILLORY, J CHEVY PA Unavailable Unavailable GUILLORY, J CHEVY PA Unavailable Unavailable Sayra Santana MD Unavailable Unavailable Sayra Santana MD Unavailable Unavailable Kunnumpurath, F Chloe MD Unavailable Unavailable Kunnumpurath, F Chloe MD Unavailable Unavailable [place]unnump[place]ath, F Chloe MD Unavailable Unavailable [place]unn[place]urath, F Chloe MD Unavailable Unavailable [place]ath, F Chloe MD Unavailable Unavailable [place]unn[place]urath, F Chloe MD Unavailable Unavailable [place]ath, F Chloe MD Unavailable Unavailable [place], F Chloe MD Unavailable Unavailable [place]ath, F Chloe MD Unavailable Unavailable [place]ath, F Chloe MD Unavailable Unavailable [place]ath, F Chloe MD Unavailable Unavailable Kunn[place]urath, F Chloe MD Unavailable Unavailable [place]ath, F Chloe MD Unavailable Unavailable [place]ath, F Chloe MD Unavailable Unavailable [place]ath, F Chloe MD Unavailable Unavailable [place], F Chloe MD Unavailable Unavailable [place], F Chloe MD Unavailable Unavailable [place]ath, F Chloe MD Unavailable Unavailable [place], F Chloe MD Unavailable Unavailable [place], F Chloe MD Unavailable Unavailable [place], F Chloe MD Unavailable Unavailable [place], F Chloe MD Unavailable Unavailable [place]ath, F Chloe MD Unavailable Unavailable [place], F Chloe MD Unavailable Unavailable [place]ath, F Chloe MD Unavailable Unavailable [place], F Chloe MD Unavailable Unavailable [place], F Chloe MD Unavailable Unavailable [place], F Chloe MD Unavailable Unavailable [place], F Chloe MD Unavailable Unavailable [place], F Chloe MD Unavailable Unavailable [place], F Chloe MD Unavailable Unavailable [place], F Chloe MD Unavailable Unavailable [place], F Chloe MD Unavailable Unavailable [place], F Chloe MD Unavailable Unavailable [place], F Chloe MD Unavailable Unavailable [place], F Chloe MD Unavailable Unavailable [place], F Chloe MD Unavailable Unavailable [place], F Chloe MD Unavailable Unavailable [place], F Chloe MD Unavailable Unavailable [place], F Chloe MD Unavailable Unavailable [place], F Chloe MD Unavailable Unavailable [place]ath, F Chloe MD Unavailable Unavailable [place], F Chloe MD Unavailable Unavailable Sayra Santana MD Unavailable Unavailable Re-disclosure Warning The records that you are about to access may contain information from federally-assisted alcohol or drug abuse programs. If such information is present, then the following federally mandated warning applies: This information has been disclosed to you from records protected by federal confidentiality rules (42 CFR part 2). The federal rules prohibit you from making any further disclosure of this information unless further disclosure is expressly permitted by the written consent of the person to whom it pertains or as otherwise permitted by 42 CFR part 2. A general authorization for the release of medical or other information is NOT sufficient for this purpose. The Federal rules restrict any use of the information to criminally investigate or prosecute any alcohol or drug abuse patient.The records that you are about to access may contain highly sensitive health information, the redisclosure of which is protected by Article 27-F of the [place] [facility] Public Health law. If you continue you may have access to information: Regarding HIV / AIDS; Provided by facilities licensed or operated by the [facility] Office of Mental Health; or Provided by the [facility] Office for People With Developmental Disabilities. If such information is present, then the following [facility] mandated warning applies: This information has been disclosed to you from confidential records which are protected by state law. State law prohibits you from making any further disclosure of this information without the specific written consent of the person to whom it pertains, or as otherwise permitted by law. Any unauthorized further disclosure in violation of state law may result in a fine or retirement sentence or both. A general authorization for the release of medical or other information is NOT sufficient authorization for further disc losure. Encounters Encounter Providers Location Date Indications Data Source(s ) Outpatient Attender: MAURICIO GRAHAMReferrer: Alphonse albrecht MD 08/09/2021 10:11:00 AM EDT - 08/09/2021 10:11:00 AM EDT [facility] Unknown [address] [facility] [address] 08/04/2021 12:00:00 AM EDT eCW1 ([facility]) Outpatient Attender: JOSE MARIA CALLEJAS 03:27:00 PM EDT - 08/03/2021 03:27:00 PM EDT [facility] Unknown [address] [facility] [address] 08/03/2021 12:00:00 AM EDT eCW1 ([facility]) ([facility]) [facility] [address] [place] [address] 08/02/2021 12:00:00 AM EDT eCW1 ([facility]) ([facility]) [facility] [address] [place] [address] 07/26/2021 12:00:00 AM EDT eCW1 ([facility]) ([facility]) [facility] [address] [place] [address] 07/20/2021 12:00:00 AM EDT eCW1 ([facility]) (WC EST[facility]) [facility] [address] [place] [address] 07/15/2021 12:00:00 AM EDT eCW1 ([facility]) (WC EST[facility]) [facility] [address] [place] [address] 07/06/2021 12:00:00 AM EDT eCW1 ([facility]) Outpatient Attender: MAURICIO GRAHAMReferrer: Alphonse albrecht MD 06/29/2021 08:51:00 AM EDT - 06/29/2021 08:51:00 AM EDT [facility] (WC ESTOB) [facility] Est [facility] [address] [place] [address] 06/21/2021 12:00:00 AM EDT eCW1 ([facility]) Outpatient Attender: MAURICIO GRAHAM 06/08/20 10:15:00 AM EDT - 06/08/2021 10:15:00 AM EDT [facility] Outpatient Attender: CHEVY Estradaerrer: Alphonse kearns MD 06/02/2021 12:06:00 PM EDT - 06/02/2021 12:06:00 PM EDT [facility] ( ESTOB) [facility] [address] [place] [address] 06/01/2021 12:00:00 AM EDT eCW1 ([facility]) Outpatient Attender: MAURICIO Taylorerrer: Alphonse albrecht MD 05/24/2021 02:58:00 PM EDT - 05/24/2021 02:58:00 PM EDT [facility] ( ESTOB) [facility] Est OB [address] [place] [address] 05/04/2021 12:00:00 AM EDT eCW1 ([facility]) Outpatient Attender: MAURICIO Talleyer: Alphonse albrecht MD 05/02/2021 01:51:00 PM EDT - 05/02/2021 01:51:00 PM EDT [facility] Outpatient Attender: Alphonse Ramon MDAttender: CHEVY CALLEJAS 04/27/2021 09:54:00 AM EDT - 04/27/2021 09:54:00 AM EDT [facility] Outpatient Attender: MAURICIO GRAHAM 04/04/20 08:02:00 AM EDT - 04/04/2021 08:02:00 AM EDT [facility] ( ESTOB) [facility] Est OB [address] [place] [address] 04/01/2021 12:00:00 AM EDT [facility]CW1 [facility] Outpatient Attender: MAURICIO GRAHAM 03/14/20 09:03:00 AM EDT - 03/14/2021 09:03:00 AM EDT [facility] ( ESTOB) [facility] Est OB [address] [place] [address] 03/04/2021 12:00:00 AM EDT eCW1 ([facility]) [place] [address] [facility] [address] 02/28/2021 12:00:00 AM EDT eCW1 ([facility]) ( 1PN) enter 1st [address] [place] [address] 02/04/2021 12:00:00 AM EDT eCW1 ([facility]) Outpatient Attender: Chloe Santana MD 0 01/14/2021 10:33:00 AM EDT - 01/14/2021 10:33:00 AM EDT [facility] Immunizations Vaccine Date Status Description Data Source(s) Tdap 06/21/2021 09:31:00 AM EDT completed e CW1 ([facility]) Tdap 06/21/2021 09:31:00 AM EDT completed e CW1 ([facility]) Tdap 06/21/2021 09:31:00 AM EDT completed e CW1 ([facility]) Tdap 06/21/2021 09:31:00 AM EDT completed e CW1 ([facility]) Tdap 06/21/2021 09:31:00 AM EDT completed e CW1 ([facility]) Tdap 06/21/2021 09:31:00 AM EDT completed e CW1 ([facility]) Tdap 06/21/2021 09:31:00 AM EDT completed e CW1 ([facility]) Tdap 06/21/2021 09:31:00 AM EDT completed e CW1 ([facility]) 06/01/2021 10:36:00 AM EDT completed e CW1 ([facility]) 06/01/2021 10:36:00 AM EDT completed e CW1 ([facility]) 06/01/2021 10:36:00 AM EDT completed e CW1 ([facility]) 06/01/2021 10:36:00 AM EDT completed e CW1 ([facility]) 06/01/2021 10:36:00 AM EDT completed e CW1 ([facility]) 06/01/2021 10:36:00 AM EDT completed e CW1 ([facility]) 06/01/2021 10:36:00 AM EDT completed e CW1 ([facility]) 06/01/2021 10:36:00 AM EDT completed e CW1 ([facility]) 06/01/2021 10:36:00 AM EDT completed e CW1 ([facility]) Medications Medication Brand Name Start Date Product Form Dose Route Admi nistrative Instructions Pharmacy Instructions Status Indications Reaction Description Data Source(s) Lurasidone Hydrochloride 20 MG Oral Tablet [Latuda] Latuda 04/01/2021 12:00:00 AM EDT ORAL active [facility] ([facility]) Lurasidone Hydrochloride 20 MG Oral Tablet [Latuda] Latuda 2 0 MG Latuda 20 MG 02/04/2021 12:00:00 AM EDT 1.0 {tablet_with_food} active Latuda 20 MG eCW1 ([facility]) Lurasidone Hydrochloride 20 MG Oral Tablet [Latuda] Latuda 2 0 MG Latuda 20 MG 02/04/2021 12:00:00 AM EDT 2.0 {tablets_with_food} active Latuda 20 MG eCW1 ([facility]) Lurasidone Hydrochloride 20 MG Oral Tablet [Latuda] Latuda 2 0 MG Latuda 20 MG 02/04/2021 12:00:00 AM EDT 1.0 {tablet_with_food} active Latuda 20 MG eCW1 ([facility]) Lurasidone Hydrochloride 20 MG Oral Tablet [Latuda] Latuda 2 0 MG Latuda 20 MG 02/04/2021 12:00:00 AM EDT 1.0 {tablet_with_food} active Latuda 20 MG eCW1 ([facility]) Lurasidone Hydrochloride 20 MG Oral Tablet [Latuda] Latuda 2 0 MG Latuda 20 MG 02/04/2021 12:00:00 AM EDT 1.0 {tablet_with_food} active Latuda 20 MG eCW1 ([facility]) Lurasidone Hydrochloride 20 MG Oral Tablet [Latuda] Latuda 2 0 MG Latuda 20 MG 02/04/2021 12:00:00 AM EDT 1.0 {tablet_with_food} active Latuda 20 MG eCW1 ([facility]) Lurasidone Hydrochloride 20 MG Oral Tablet [Latuda] Latuda 2 0 MG Latuda 20 MG 02/04/2021 12:00:00 AM EDT 2.0 {tablets_with_food} active Latuda 20 MG eCW1 ([facility]) Lurasidone Hydrochloride 20 MG Oral Tablet [Latuda] Latuda 2 0 MG Latuda 20 MG 02/04/2021 12:00:00 AM EDT 1.0 {tablet_with_food} active Latuda 20 MG eCW1 ([facility]) Lurasidone Hydrochloride 20 MG Oral Tablet [Latuda] Latuda 2 0 MG Latuda 20 MG 02/04/2021 12:00:00 AM EDT 2.0 {tablets_with_food} active Latuda 20 MG eCW1 ([facility]) Lurasidone Hydrochloride 20 MG Oral Tablet [Latuda] Latuda 2 0 MG Latuda 20 MG 02/04/2021 12:00:00 AM EDT 1.0 {tablet_with_food} active Latuda 20 MG eCW1 ([facility]) Lurasidone Hydrochloride 20 MG Oral Tablet [Latuda] Latuda 2 0 MG Latuda 20 MG 02/04/2021 12:00:00 AM EDT 1.0 {tablet_with_food} active Latuda 20 MG eCW1 ([facility]) Lurasidone Hydrochloride 20 MG Oral Tablet [Latuda] Latuda 2 0 MG Latuda 20 MG 02/04/2021 12:00:00 AM EDT 1.0 {tablet_with_food} active Latuda 20 MG eCW1 ([facility]) Lurasidone Hydrochloride 20 MG Oral Tablet [Latuda] Latuda 2 0 MG Latuda 20 MG 02/04/2021 12:00:00 AM EDT 1.0 {tablet_with_food} active Latuda 20 MG eCW1 ([facility]) Lurasidone Hydrochloride 20 MG Oral Tablet [Latuda] Latuda 2 0 MG Latuda 20 MG 02/04/2021 12:00:00 AM EDT 1.0 {tablet_with_food} active Latuda 20 MG eCW1 ([facility]) Insurance Providers Payer name Policy type / Coverage type Policy ID Covered constitution party ID Covered constitution party's relationship to Policy Plan Information [place] [id number] [facility] [place] [id number] [facility] [place] [id number] [id number] [facility] [id number] 18 [id number] Problems, Conditions, and Diagnoses Code Display Name Description Problem Type Effective Dates Data Source(s) Z1152 ENCOUNTER FOR SCREENING FOR COVID-19 ENCOUNTER F OR SCREENING FOR COVID-19 Diagnosis 08/03/2021 03:27:00 PM EDT [facility] F4310 Post-traumatic stress disorder, unspecif ied Post-traumatic stress disorder, unspecified Diagnosis 06/29/2021 08:51:00 AM EDT [facility] F419 Anxiety disorder, unspecified Anxiety disorder, unspec ified Diagnosis 06/29/2021 08:51:00 AM EDT [facility] F3289 Other specified depressive episodes Other specif ied depressive episodes Diagnosis 06/29/2021 08:51:00 AM EDT [facility] F609 Personality disorder, unspecified Personality di sorder, unspecified Diagnosis 06/02/2021 12:06:00 PM EDT [facility] [id number] Personal history of nicotine dependence Personal history of nicotine dependence Diagnosis [facility] Other sleep disorders Other sleep disorders Diagnosis 01/14/2021 10:33:00 AM T [facility] Z3A10 10 weeks gestation of 10 weeks gestation of Diagnosis 01/14/2021 10:33:00 AM EDT [facility] [id number] Other mental disorders complicating preg jero, first trimester Other mental disorders complicating , first trimester Diagnosis 01/14/2021 10:33:00 AM EDT [facility] E66.9 Obesity Obesity, unspecified Problem 07/27/2021 12:0 0:00 AM EDT eCW1 ([facility]) O99.213 Maternal obesity complicatin g , childbirth and the puerperium, antepartum Obesity complicating , third trimester Problem 07/21/2021 12:00:00 AM EDT eCW1 ([facility]) F41.8 Anxiety depression Anxiety with depression Problem 07/21/2021 12:00:00 AM EDT eCW1 ([facility]) O99.213 Obesity complicating , third tr imester Obesity complicating in third trimester Problem 06/21/2021 12:00:00 AM EDT eCW1 ([facility]) O36.0130 Maternal care for anti-D [Rh ] antibodies, third trimester, not applicable or unspecified Maternal care for anti-D [Rh] antibodies , third trimester, not applicable or unspecified Problem 06/02/2021 12:00:00 AM EDT eCW1 ([facility]) Z68.35 [id number] BMI 35.0-35.9,adult Problem 03/04/2021 12:00 :00 AM EDT eCW1 ([facility]) F43.10 [id number] PTSD (post-traumatic stress disorder) Pro blem 03/03/2021 12:00:00 AM EDT eCW1 ([facility]) F41.8 [id number] Depression with anxiety Problem 03/03/2021 1 2:00:00 AM EDT eCW1 ([facility]) O99.212 [id number] Obesity affecting in second tri mester Problem 03/03/2021 12:00:00 AM EDT eCW1 ([facility]) Z68.34 [id number] BMI 34.0-34.9,adult Problem 02/04/2021 12:00 :00 AM EDT eCW1 ([facility]) O99.211 [id number] Obesity complicating in first t rimester Problem 02/04/2021 12:00:00 AM EDT eCW1 ([facility]) E66.09 [id number] Other obesity due to excess calories Prob rossy 02/04/2021 12:00:00 AM EDT eCW1 ([facility]) Z34.80 care Supervision of other normal P roblem 02/01/2021 12:00:00 AM EDT eCW1 ([facility]) F41.9 Anxiety state Anxiety state Problem 01/14/2021 12:00:00 AM EDT [facility] ([facility]) F32.89 Depressive disorder Depressive disorder Problem 0 01/14/2021 12:00:00 AM EDT [facility] ([facility]) M26.603 Bilateral temporomandibular joint disord er Bilateral temporomandibular joint disorder Problem 01/14/2021 12:00:00 AM EDT [facility] ([facility]) Surgeries/Procedures Procedure Description Date Indications Data Source(s) TDAP VACCINE 7/> YR IM 06/21/2021 12:00:00 AM EDT eCW1 ([facility]) Psychiatric Diag Eval W/Medical Service 06/02/2021 12: 00:00 AM EDT [facility] ([facility]) Inj: RhoGAM 300mcg/1.5mL IM Rho D Immune Globulin Human 06/01/2021 12:00:00 AM EDT eCW1 ([facility]) NONSTRESS TEST 06/01/2021 12:00:00 AM EDT eCW1 ([facility]) PREVENT MED NAVIGATION OFFICER&/RISK FACTOR REDJ SPX 45 MIN 04/27 12:00:00 AM EDT [facility] ([facility]) Psychiatric Diagnostic Evaluation 03/14/2021 12:00:00 AM EDT [facility] ([facility]) Brief Emotional/Behav Assessment W/ Scoring Doc Per Standard Inst 01/14/2021 12:00:00 AM EDT [facility] ([facility]) Admin Patient Focused Health Risk Assessment Instrument 01/14/2021 12:00:00 AM EDT [facility] ([facility]) OFFICE OUTPATIENT NEW 30 MINUTES 01/14/2021 12:00:00 A M EDT [facility] ([facility]) Results ID Date Data Source [id number] 08/03/2021 03:49:00 PM EDT [facility] ([facility]) Name Value Range Interpretation Code Description Data Britany rce(s) Supporting Document(s) Covid-19 Laboratory test result [facility] ([facility]) ID Date Data Source [id number] 08/05/2021 02:34:00 PM EDT [facility] Name Value Range Interpretation Code Description Data Britany rce(s) Supporting Document(s) SARS-CoV-2, DANIELE Not Detected Not Detected [facility] This nucleic acid amplification test was developed and its performancecharacteristics determined by [employer]. Nucleic acidamplification tests include RT-PCR and TMA. This test has not beenFDA cleared or approved. This test has been authorized by FDA underan Emergency Use Authorization (EUA). This test is only authorizedfor the duration of time the declaration that circumstances existjustifying the authorization of the emergency use of in vitrodiagnostic tests for detection of SARS-CoV-2 virus and/or diagnosisof COVID-19 infection under section 564(b)(1) of the Act, 21 U.S.C.360bbb-3(b) (1), unless the authorization is terminated or revokedsooner.When diagnostic testing is negative, the possibility of a falsenegative result should be considered in the context of a patient'srecent exposures and the presence of clinical signs and symptomsconsistent with COVID- 19. An individual without symptoms of COVID-19and who is not shedding SARS-CoV-2 virus would expect to have anegative (not detected) result in this assay. SARS-CoV-2, DANIELE 2 DAY TAT Performed [facility] ID Date Data Source [facility] OBS FOLLOW UP OR REPEAT 08/03/2021 12:00:00 AM EDT eCW1 ([facility]) Name Value Range Interpretation Code Description Data Britany rce(s) Supporting Document(s) [facility] OBS FOLLOW UP OR REPEAT e CW1 ([facility]) ID Date Data Source GROUP B STREP CULTURE 07/15/2021 12:00:00 AM EDT eCW1 ([facility]) Name Value Range Interpretation Code Description Data Britany rce(s) Supporting Document(s) GROUP B STREP CULTURE eCW1 ([facility]) ID Date Data Source [id number] 05/04/2021 11:17:00 AM EDT [facility] ([facility]) Name Value Range Interpretation Code Description Data Britany rce(s) Supporting Document(s) Rh immune globulin screen [interpretation] Laboratory test result [facility]) TRANSFUSED PRODUCT: RHOGAM COUNT: 1 ID Date Data Source [id number] 05/04/2021 11:17:00 AM EDT [facility]) Name Value Range Interpretation Code Description Data Britany rce(s) Supporting Document(s) Blood Type Laboratory test result Normal (applies to non-n umeric results) [facility] ([facility]) AB Screen (Indirect Dougie)Vis Laboratory test result Normal (applies to non- numeric results) [facility] ([facility]) ID Date Data Source [id number] 05/04/2021 11:17:00 AM EDT [facility] ([facility]) Name Value Range Interpretation Code Description Data Britany rce(s) Supporting Document(s) Glucose [Mass/volume] in Serum or Plasma --1 hour post XXX c hallenge 106 mg/dL Normal (applies to non-numeric results) [facility]) ID Date Data Source [id number] 05/04/2021 11:17:00 AM EDT [facility] ([facility]) Name Value Range Interpretation Code Description Data Britany rce(s) Supporting Document(s) White Blood Count 9.7 10 4.0-10.0 Normal (applies to non-numeri c results) [facility] ([facility]) Red Blood Count 4.01 10 4.00-5.40 Normal (applies to non-numeric results) [facility] ([facility]) Hemoglobin 13.0 g/dL 12.0-15.5 Normal (applies to non-numeric resul ts) [facility]) Hematocrit 38.5 % 36.0-47.0 Normal (applies to non-numeric resul ts) [facility]) Mean Corpuscular Volume 96.0 fl 80.0-96.0 Normal ( applies to non-numeric results) [facility]) Mean Corpuscular Hemoglobin 32.4 pg 27.0-33.0 Norm al (applies to non-numeric results) [facility]) Mean Corpuscular HGB Conc 33.8 g/dL 32.0-36.5 Normal (applies to non-numeric results) [facility] ([facility]) Red Cell Distribution Width 13.0 % 11.5-14.5 Norm al (applies to non-numeric results) [facility] ([facility]) Platelet Count, Automated 320 10 150-450 Normal (applies to non-numeric results) [facility] [facility] ([facility]) Nucleated Red Blood Cell % 0.0 % 0-0 Normal (applies to n on-numeric results) [facility] ([facility]) ID Date Data Source RHOGAM 05/04/2021 12:00:00 AM EDT eCW1 ([facility]) Name Value Range Interpretation Code Description Data Britany rce(s) Supporting Document(s) TRANSFUSED PRODUCT: RHOGAM CO UNT: 1 RHOGAM eCW1 ([facility]) ID Date Data Source Type and Screen (D Rh Antibody Screen) 05/04/2021 12:00:00 A M EDT eCW1 ([facility]) Name Value Range Interpretation Code Description Data Britany rce(s) Supporting Document(s) O NEGATIVE BLOOD TYPE eCW1 ([facility]) NEGATIVE AB SCREEN (INDIRECT COOMB S)VIS eCW1 ([facility]) ID Date Data Source Glucose Challenge Test 1 Hour 05/04/2021 12:00:00 AM EDT eCW 1 ([facility]) Name Value Range Interpretation Code Description Data Britany rce(s) Supporting Document(s) 106 LESS THAN 140 GLUCOSE CHALLENGE TEST 1 HOUR eCW1 ([facility]) ID Date Data Source CBC - Complete Blood Count 05/04/2021 12:00:00 AM EDT eCW1 ( [facility]) Name Value Range Interpretation Code Description Data Britany rce(s) Supporting Document(s) 9.7 4.0-10.0 WHITE BLOOD COUNT eCW1 ([facility]) 4.01 4.00-5.40 RED BLOOD COUNT eCW1 ([facility]) 13.0 12.0-15.5 HEMOGLOBIN eCW1 ([facility]) 32.4 27.0-33.0 MEAN CORPUSCULAR HEMOGLOB IN eCW1 ([facility]) 96.0 80.0-96.0 MEAN CORPUSCULAR VOLUME e CW1 ([facility]) 33.8 32.0-36.5 MEAN CORPUSCULAR HGB CONC eCW1 ([facility]) 38.5 36.0-47.0 HEMATOCRIT eCW1 ([facility]) 320 150-450 PLATELET COUNT, AUTOMATED eCW1 ([facility]) 13.0 11.5-14.5 RED CELL DISTRIBUTION WID TH eCW1 ([facility]) ID Date Data Source [id number] 04/27/2021 10:40:00 AM EDT [facility] ([facility]) Name Value Range Interpretation Code Description Data Britany rce(s) Supporting Document(s) PDF Laboratory test result [facility] ([facility]) {DIAGNOSIS: F41.9 F32.89 F43.10~{MEDICA TIONS/DECLARED: LATUDA~{PRESCRIPTION INFO:~{PRESCRIPTION Laboratory test finding (navigational concept) Laboratory test result [facility] ([facility]) {DIAGNOSIS: F41.9 F32.89 F43.10~{MEDICA TIONS/DECLARED: LATUDA~{PRESCRIPTION INFO:~{PRESCRIPTION ID Date Data Source [id number] 05/03/2021 06:08:00 AM EDT [facility] Name Value Range Interpretation Code Description Data Britany rce(s) Supporting Document(s) Drugs identified in Urine FINAL [facility] TOXASSURE SELECT 13 (MW) Test Result Flag Units NO DRUGS DETECTED. Ness t Result Flag Units Ref Range Creatinine 52 mg/dL > =20 Declared Medications: The flagging and interpretation on this report are based on the following declared medications. Unexpected results may arise from inaccuracies in the declared medications. Note: The testing scope of this panel does not include following reported medications: Lurasidone (Latuda) For clinical consultation, please call . Report . [facility] ID Date Data Source HBSAG 02/04/2021 12:00:00 AM EDT eCW1 ([facility]) Name Value Range Interpretation Code Description Data Britany rce(s) Supporting Document(s) NEGATIVE NEGATIVE HBsAg eCW1 ([facility]) ID Date Data Source HEPATITIS C ANTIBODY INDEX 02/04/2021 12:00:00 AM EDT eCW1 ( [facility]) Name Value Range Interpretation Code Description Data Britany rce(s) Supporting Document(s) 0.1 <0.8 HEPATITIS C VIRUS KEL INDEX eC W1 ([facility]) ID Date Data Source URINE CULTURE 02/04/2021 12:00:00 AM EDT eCW1 ([facility]) Name Value Range Interpretation Code Description Data Britany rce(s) Supporting Document(s) URINE CULTURE eCW1 ([facility]) ID Date Data Source RUBELLA IMMUNE STATUS IgG 02/04/2021 12:00:00 AM EDT eCW1 [facility] Name Value Range Interpretation Code Description Data Britany rce(s) Supporting Document(s) IMMUNE IMMUNE RUBELLA IgG QUALITATIVE eCW1 ( [facility]) ID Date Data Source SYPHILIS ANTIBODY (RPR SCREEN) 02/04/2021 12:00:00 AM EDT eC W1 ([facility]) Name Value Range Interpretation Code Description Data Britany rce(s) Supporting Document(s) NONREACTIVE NONREACTIVE SYPHILIS eCW1 ([facility]) ID Date Data Source [id number] 02/04/2021 12:00:00 AM EDT eCW1 ([facility]) Name Value Range Interpretation Code Description Data Britany rce(s) Supporting Document(s) HIV 1&2 ANTIBODY SCREEN eCW1 ( [facility]) ID Date Data Source CHLAMYDIA & GC DNA AMPLIFICAT 02/04/2021 12:00:00 AM EDT eCW 1 ([facility]) Name Value Range Interpretation Code Description Data Britany rce(s) Supporting Document(s) Chlamydia trachomatis rRNA [Presence] in Unspecified specimen by Probe and target amplification method NEGATIVE NEGATIVE CHLAMYDIA DNA AMPLIFICATION eCW1 ([facility]) ID Date Data Source Type and Screen Prenatal1 02/04/2021 12:00:00 AM EDT eCW1 ([facility] Name Value Range Interpretation Code Description Data Britany rce(s) Supporting Document(s) NEGATIVE AB SCREEN PNP1 GEL (VIS) eCW1 ([facility]) Procedure Social History Code Duration Value Status Description Data Source(s ) Smoking 08/01/2021 12:00:00 AM EDT Former Smoker completed Former Smoker eCW1 ([facility]) Smoking 08/01/2021 12:00:00 AM EDT Former Smoker completed Former Smoker eCW1 ([facility]) Smoking 08/01/2021 12:00:00 AM EDT Former Smoker completed Former Smoker eCW1 ([facility]) Smoking 07/26/2021 12:00:00 AM EDT Former Smoker completed Former Smoker eCW1 ([facility]) Smoking 07/26/2021 12:00:00 AM EDT Former Smoker completed Former Smoker eCW1 ([facility]) Smoking 07/26/2021 12:00:00 AM EDT Former Smoker completed Former Smoker eCW1 ([facility]) Smoking 07/07/2021 12:00:00 AM EDT Former Smoker completed Former Smoker eCW1 ([facility]) Smoking 06/13/2021 12:00:00 AM EDT Former Smoker completed Former Smoker eCW1 ([facility]) Smoking 05/30/2021 12:00:00 AM EDT Former Smoker completed Former Smoker eCW1 ([facility]) Smoking 05/02/2021 12:00:00 AM EDT Former Smoker completed Former Smoker eCW1 ([facility]) Smoking 03/29/2021 12:00:00 AM EDT Former Smoker completed Former Smoker eCW1 ([facility]) Smoking 03/04/2021 12:00:00 AM EDT Former Smoker completed Former Smoker eCW1 ([facility]) Smoking 02/04/2021 12:00:00 AM EDT Former Smoker completed Former Smoker eCW1 ([facility]) Smoking 02/04/2021 12:00:00 AM EDT Former Smoker completed Former Smoker eCW1 ([facility]) Vital Signs ID Date Data Source UNK Name Value Range Interpretation Code Description Data Source(s) Heart rate 86 /min 86 /min [facility] ([facility]) Body temperature 98.6 [degF] 98.6 [degF] [facility] ([facility]) Oxygen saturation in Arterial blood by Pulse oximetry 96 % 96 % [facility] ([facility]) Body weight 268.4 [lb_av] 268.4 [lb_av] eCW1 ([facility]) Body weight 121.74 kg 121.74 kg eCW1 ([facility]) Body height 68 [in_i] 68 [in_i] eCW1 ([facility]) Body mass index (BMI) [Ratio] 40.81 kg/m2 40.81 kg/m2 eCW1 ([facility]) Systolic blood pressure 122 mm[Hg] 122 mm[Hg] e CW1 ([facility]) Diastolic blood pressure 76 mm[Hg] 76 mm[Hg] eCW1 ([facility]) Body weight 267.2 [lb_av] 267.2 [lb_av] eCW1 ([facility] Body height 68 [in_i] 68 [in_i] eCW1 ([facility]) Body mass index (BMI) [Ratio] 40.628 kg/m2 40.6 28 kg/m2 eCW1 ([facility]) Systolic blood pressure 122 mm[Hg] 122 mm[Hg] e CW1 ([facility]) Diastolic blood pressure 78 mm[Hg] 78 mm[Hg] eCW1 ([facility]) Body weight 267 [lb_av] 267 [lb_av] eCW1 ([facility]) Body weight 121.11 kg 121.11 kg eCW1 ([facility]) Body height 68 [in_i] 68 [in_i] eCW1 ([facility]) Body mass index (BMI) [Ratio] 40.597 kg/m2 40.5 97 kg/m2 eCW1 ([facility]) Systolic blood pressure 118 mm[Hg] 118 mm[Hg] e CW1 ([facility]) Diastolic blood pressure 74 mm[Hg] 74 mm[Hg] eCW1 ([facility]) Body weight 263 [lb_av] 263 [lb_av] eCW1 ([facility]) Body height 68 [in_i] 68 [in_i] eCW1 ([facility]) Body mass index (BMI) [Ratio] 39.989 kg/m2 39.9 89 kg/m2 eCW1 ([facility]) Systolic blood pressure 110 mm[Hg] 110 mm[Hg] e CW1 ([facility]) Diastolic blood pressure 60 mm[Hg] 60 mm[Hg] eCW1 ([facility]) Body weight 261 [lb_av] 261 [lb_av] eCW1 ([facility]) Body weight 118.39 kg 118.39 kg eCW1 ([facility]) Body height 68 [in_i] 68 [in_i] eCW1 ([facility]) Body mass index (BMI) [Ratio] 39.685 kg/m2 39.6 85 kg/m2 eCW1 ([facility]) Systolic blood pressure 116 mm[Hg] 116 mm[Hg] e CW1 ([facility]) Diastolic blood pressure 78 mm[Hg] 78 mm[Hg] eCW1 ([facility]) Body weight 257.6 [lb_av] 257.6 [lb_av] eCW1 ([facility] Body weight 116.85 kg 116.85 kg eCW1 ([facility]) Body height 68 [in_i] 68 [in_i] eCW1 ([facility]) Body mass index (BMI) [Ratio] 39.168 kg/m2 39.1 68 kg/m2 eCW1 ([facility]) Systolic blood pressure 114 mm[Hg] 114 mm[Hg] e CW1 ([facility]) Diastolic blood pressure 74 mm[Hg] 74 mm[Hg] eCW1 ([facility]) Body weight 252 [lb_av] 252 [lb_av] eCW1 ([facility]) Body weight 114.31 kg 114.31 kg eCW1 ([facility]) Body height 68 [in_i] 68 [in_i] eCW1 ([facility]) Body mass index (BMI) [Ratio] 38.316 kg/m2 38.3 16 kg/m2 eCW1 ([facility]) Systolic blood pressure 118 mm[Hg] 118 mm[Hg] e CW1 ([facility]) Diastolic blood pressure 74 mm[Hg] 74 mm[Hg] eCW1 ([facility]) Body weight 241.6 [lb_av] 241.6 [lb_av] eCW1 ([facility] Body height 68 [in_i] 68 [in_i] eCW1 ([facility]) Body mass index (BMI) [Ratio] 36.735 kg/m2 36.7 35 kg/m2 eCW1 ([facility]) Systolic blood pressure 124 mm[Hg] 124 mm[Hg] e CW1 ([facility]) Diastolic blood pressure 72 mm[Hg] 72 mm[Hg] eCW1 ([facility]) Body weight 109.998 kg 109.998 kg [facility] ([facility]) Body height 68 [in_i] 68 [in_i] [facility] ([facility]) 5'8" Body mass index (BMI) [Ratio] 36.9 kg/m2 36.9 k g/m2 [facility] ([facility]) Body surface area Derived from formula 2.22 m2 2.22 m2 [facility] ([facility]) Oxygen saturation in Arterial blood by Pulse oximetry 100 % 100 % [facility] ([facility]) Systolic blood pressure--sitting 110 mm[Hg] 110 mm[Hg] [facility] ([facility]) Diastolic blood pressure--sitting 69 mm[Hg] 69 mm[Hg] [facility] ([facility]) Heart rate 84 /min 84 /min [facility] ([facility]) Body temperature 97.7 [degF] 97.7 [degF] [facility] ([facility]) Oral Respiratory rate 16 /min 16 /min [facility] ( [facility]) Body weight 242.50 [lb_av] 242.50 [lb_av] [facility] T ([facility]) Body weight 237.6 [lb_av] 237.6 [lb_av] eCW1 ([facility]) Body height 68 [in_i] 68 [in_i] eCW1 ([facility]) Body mass index (BMI) [Ratio] 36.127 kg/m2 36.1 27 kg/m2 eCW1 ([facility]) Systolic blood pressure 112 mm[Hg] 112 mm[Hg] e CW1 ([facility]) Diastolic blood pressure 68 mm[Hg] 68 mm[Hg] eCW1 ([facility]) Body weight 232.6 [lb_av] 232.6 [lb_av] eCW1 ([facility]) Body height 68 [in_i] 68 [in_i] eCW1 ([facility]) Body mass index (BMI) [Ratio] 35.367 kg/m2 35.3 67 kg/m2 eCW1 ([facility]) Systolic blood pressure 120 mm[Hg] 120 mm[Hg] e CW1 ([facility]) Diastolic blood pressure 70 mm[Hg] 70 mm[Hg] eCW1 ([facility]) Body weight 229 [lb_av] 229 [lb_av] eCW1 ([facility]) Body weight 103.87 kg 103.87 kg eCW1 ([facility]) Body height 68 [in_i] 68 [in_i] eCW1 ([facility]) Body mass index (BMI) [Ratio] 34.819 kg/m2 34.8 19 kg/m2 eCW1 ([facility]) Systolic blood pressure 126 mm[Hg] 126 mm[Hg] e CW1 ([facility]) Diastolic blood pressure 82 mm[Hg] 82 mm[Hg] eCW1 ([facility]) Systolic blood pressure 110 mm[Hg] 110 mm[Hg] M [facility]ENT ([facility]) Diastolic blood pressure 72 mm[Hg] 72 mm[Hg] [facility] ([facility]) Heart rate 86 /min 86 /min [facility] ([facility]) Body height 68 [in_i] 68 [in_i] [facility] ([facility]) 5'8" Body temperature 97.7 [degF] 97.7 [degF] [facility] ([facility]) Respiratory rate 16 /min 16 /min [facility] ( [facility]) Oxygen saturation in Arterial blood by Pulse oximetry 98 % 98 % [facility] ([facility]) Body weight 229.25 [lb_av] 229.25 [lb_av] [facility] ([facility]) Body weight 103.988 kg 103.988 kg [facility] ([facility]) Body mass index (BMI) [Ratio] 34.9 kg/m2 34.9 k g/m2 [facility] ([facility]) Body surface area Derived from formula 2.17 m2 2.17 m2 [facility] ([facility]) Patient Treatment Plan of Care Planned Activity Planned Date Details Description Data Source (s) Lurasidone Hydrochloride 20 MG Oral Tablet [Latuda] 02/05/20 12:00:00 AM EDT eCW1 ([facility])
[2021-08-10] MEDS ORDERED: OXYTOCIN DRIP 30 UNITS in IV 1 EA IV PRN ×4 (18:55)
[2021-08-10] MEDS ORDERED: LIDOCAINE 1% MDV 20ML VIAL INFIL PRN (18:55)
[2021-08-10] MEDS ORDERED: OXYTOCIN INJ 10 UNITS/ML VIAL (J2590) IM PRN (18:55)
[2021-08-10] MEDS ORDERED: CARBOPROST TROMETHAMINE 250 MCG/ML AMP IM PRN (18:55)
[2021-08-10] MEDS ORDERED: TRANEXAMIC ACID INJection 1,000 MG in NS 100 ML IV PRN (18:55)
[2021-08-10] MEDS ORDERED: METHYLERGONOVINE MALEATE 0.2 MG/ML VIAL (J2210) IM PRN (18:55)
[2021-08-10 19:31] VITALS: BP 118/79
[2021-08-10 20:05] LABS: HEMATOCRIT 37.3 % (36.0-47.0); HEMOGLOBIN 12.6 g/dl (12.0-15.5); MEAN CORPUSCULAR HEMOGLOBIN 29.9 pg (27.0-33.0); MEAN CORPUSCULAR HGB CONC 33.8 g/dl (32.0-36.5); MEAN CORPUSCULAR VOLUME 88.6 fl (80.0-96.0); PLATELET COUNT, AUTOMATED 358 10^3/uL (150-450); RED BLOOD COUNT 4.21 10^6/uL (4.00-5.40); WHITE BLOOD COUNT 15.5 10^3/uL (4.0-10.0)
[2021-08-10] MEDS ORDERED: BUTORPHANOL 2 MG/ML INJ (J0595) IV ONE (21:05)
[2021-08-10] MEDS ORDERED: PROMETHAZINE INJ 25 MG/ML VIAL (J2550) IV ONE (21:05)
[2021-08-10 21:15] VITALS: BP 111/55
--- NOTE | 2021-08-10 23:24 | HPE ---
HISTORY AND PHYSICAL DATE OF ADMISSION: 08/10/2021 HISTORY OF PRESENT ILLNESS: Bee is a 25-year-old 1, para 0 at 40 and 2/7 weeks gestation with an EDC of 08/08/2021 based on last menstrual period and confirmed by first trimester ultrasound. She presents to labor and delivery today with report of onset of uncomfortable contractions. She had mild contractions overnight and into the daytime with them becoming much more painful and closer together. She does report some scant bloody show. Denies leakage of fluid. The fetus has been active. [facility] care [facility] in the first trimester. Her course complicated by history of depression and anxiety, PTSD, sleep apnea, obesity. OBSTETRIC HISTORY: Primigravida. OBSTETRIC LABS: O-. Antibody screen negative. Syphilis negative. Gonorrhea and Chlamydia negative. Hepatitis B surface antigen negative. Hepatitis C antibody nonreactive. HIV nonreactive. Rubella immune. Urine culture no growth. Gestational diabetic screening 106, GBS is negative. PAST MEDICAL HISTORY: Depression, anxiety, PTSD, sleep apnea, obesity. PAST SURGICAL HISTORY: Tonsils and adenoids, wisdom tooth extraction. FAMILY HISTORY: Pre-diabetic, breast cancer. SOCIAL HISTORY: The patient is . Her is at bedside. She is a former smoker; she quit less than 5 years old and denies alcohol use and dug use. She does have a history of Chlamydia. She denies history of abuse; physical, sexual and emotional. ALLERGIES: No known drug allergies. CURRENT MEDICATIONS: vitamin and Latuda. OBJECTIVE: VITALS: Temperature 97.7, pulse 113, respirations 19, blood pressure 127/65. heart rate is 140 with moderate variability, positive accelerations, negative decelerations. Contractions are every 2-4 minutes. ABDOMEN: Gravid, cephalic presentation, estimated weight 8.5 pounds. STERILE VAGINAL EXAM UPON ARRIVAL: 2 cm dilated, 80% effaced, -3 station, scant blood show. ASSESSMENT: Intrauterine at 40 and 2/7 weeks gestation, heart rate category 1, labor. PLAN: Admit the patient to labor and delivery. Routine laboratories. Out of bed ad albert. Clear liquid diet. Encouraged the patient out of bed movements. At this time, she is uncertain how she will cope with her labor when it becomes more painful. She may consider I.V. pain medication and/or an epidural. She has been verbally considered for emergency surgery and blood products if they are necessary. I do anticipate continued labor progress and a vaginal delivery.
[2021-08-11] VITALS (54 sets, daily range): BP systolic 93–137; BP diastolic 47–83
[2021-08-11] MEDS ORDERED: FENTANYL 2MCG/ML ROPIVACAINE 0.2% IN 0.9% NACL 100ML IVBAG As Ordered ONE (00:49)
[2021-08-11] MEDS ORDERED: LACTATED RINGER'S 1000 ML IV ONE (01:30)
[2021-08-11] MEDS ORDERED: OXYTOCIN DRIP 30 UNITS in IV 1 EA IV SCH (01:30)
[2021-08-11] MEDS: LR 1,000 ML IV SCH ×3 (01:33→09:40)
[2021-08-11] MEDS ORDERED: ePHEDrine SULFATE 25 MG/5 ML(5MG/ML) SYRINGE As Ordered ONE (01:55)
[2021-08-11] MEDS ORDERED: EPIDURAL/PCA KEYS XX PRN (02:30)
[2021-08-11] MEDS ORDERED: EPIDURAL COMMENT XX SCH (02:30)
[2021-08-11] MEDS ORDERED: NALOXONE INJ 0.4MG/1ML VIAL (J2310 PER 1MG) IV PRN (02:30)
[2021-08-11] MEDS ORDERED: diphenhydrAMINE 50MG/ML VIAL (J1200) IV PRN (02:30)
[2021-08-11] MEDS: FENTANYL/ROPIVACAINE/NACL BAG 100 ML EPIDURAL SCH ×2 (02:30→09:35)
[2021-08-11] MEDS ORDERED: ePHEDrine SULFATE 25 MG/5 ML(5MG/ML) SYRINGE IV PRN (02:30)
[2021-08-11] MEDS ORDERED: ONDANSETRON 4MG/2ML VIAL IV PRN (02:30)
[2021-08-11] MEDS ORDERED: REFRIGERATOR IV KEYS XX PRN (02:30)
[2021-08-11] MEDS ORDERED: LACTATED RINGER'S 1000 ML IV PRN (02:30)
[2021-08-11 16:02] LABS: CORD GAS ABE A -6.6; CORD GAS HCO3 A 19.3 MEQ/L; CORD GAS O2 SAT A 68.8 %; CORD GAS PCO2 A 40.1 mmHg; CORD GAS PH A 7.301 UNITS; CORD GAS PO2 A 33.9 mmHg; CORD GAS SBC A 18.5 MEQ/L; CORD GAS TCO2 A 20.6 MEQ/L
[2021-08-11 16:03] LABS: CORD GAS ABE V -6.8; CORD GAS HCO3 V 18.8 MEQ/L; CORD GAS PCO2 V 38.6 mmHg; CORD GAS PH V 7.306 UNITS; CORD GAS PO2 V 33.1 mmHg; CORD GAS SBC V 18.3 MEQ/L
[2021-08-11] MEDS ORDERED: IBUPROFEN 600MG TAB PO PRN (16:20)
[2021-08-11] MEDS ORDERED: DIBUCAINE 1% OINTMENT 30GM TOP PRN (16:20)
[2021-08-11] MEDS ORDERED: ACETAMINOPHEN TAB 650MG DOSE (2X325MG) PO PRN (16:20)
[2021-08-11] MEDS ORDERED: RHOGAM 300 MCG (1500 IU) INJ (J2790) IM SCH (16:20)
[2021-08-11] MEDS ORDERED: ACETAMINOPHEN 500 MG TAB PO PRN (16:20)
[2021-08-11] MEDS ORDERED: OXYTOCIN DRIP 30 UNITS in IV 1 EA IV ONE (16:20)
[2021-08-11] MEDS ORDERED: MEASLES,MUMPS,RUBELLA VACCINE INJ (MMR-II) (90707) SC SCH (16:20)
[2021-08-11] MEDS ORDERED: DOCUSATE SODIUM 100MG CAPSULE PO PRN (16:20)
[2021-08-11] MEDS ORDERED: METHYLERGONOVINE MALEATE 0.2 MG TAB PO PRN (16:20)
[2021-08-11] MEDS ORDERED: LIDOCAINE 1% MDV 20ML VIAL INFIL ONE (16:20)
--- NOTE | 2021-08-11 16:33 | DNPDOC ---
[facility] Delivery Note Delivery Note DATE OF DELIVERY: August 11, 2021 PREDELIVERY DIAGNOSIS: 40-2/7 weeks' gestation and labor. POST DELIVERY DIAGNOSIS: Delivered. PROCEDURE: Spontaneous vaginal delivery. LIVING SKILLS ADVISOR: Dr. Amadeo Hall MD ANESTHESIA: epidural. ESTIMATED BLOOD LOSS: 800 mL. FINDINGS: 9 pound 1 ounce male , Score 37/9. AB.301 BE=-6.6 VB.306 BE= -6.8 DELIVERY SUMMARY: Patient is a 25-year-old 1 now para 1 who was admitted to labor and delivery for labor. She received Pitocin augmentation. After a 3 1/2 hour second stage of labor she had a spontaneous vaginal delivery of a 9 lb. 1 oz male . Markedly asynclitic head noted. The head was occiput posterior, but rotated to occiput anterior at the time of delivery. No nuchal cord. Shoulder dystocia encountered. It was relieved with McRobert's Maneuver and Wood's Maneuver. Infant handed to mother. Cord clamped and cut. Infant then quickly brought to resuscitation table. Placenta delivered spontaneously and appeared intact. Post hemorrhage encountered. It was relieved with Fundal massage and evacuation of blood from lower uterine segment. Pt received a bolus of IV Pitocin. She then received Cytotec 1000 mg OR x 1. No vaginal lacerations present. Sponge and needle counts correct. Baby to NICU. AMADEO HALL MD Aug 11, 2021 16:33
[2021-08-11] MEDS: IBUPROFEN 800 MG TAB PO PRN (17:14)
[2021-08-12 06:00] VITALS: BP 109/61
[2021-08-12] MEDS: IBUPROFEN 800 MG TAB PO PRN ×2 (06:26→19:35)
--- NOTE | 2021-08-12 08:26 | IPNPDOC ---
Text Note Date of Service The patient was seen on 08/12/21. NOTE PP #1 Feels well. Adequate pain management. Sun draining. VSS, afebrile, normotensive Breasts soft Fundus firm, NT Lochia rubra light without odor Perineum intact PP #1 D/C sun. Enc void attempt by 2 hrs and frequently through the day. VS,Fishbone, I+O VS, Fishbone, I+O Vital Signs Date Time Temp Pulse Resp B/P (MAP) Pulse Ox O2 Delivery O2 Flow Rate FiO2 08/12/21 06:00 97.8 77 16 109/61 (77) 08/11/21 18:30 99 Room Air I&O- Last 24 Hours up to 6 AM 08/12/21 06:00 Intake Total 4682.2 ml Output Total 3250 ml Balance 1432.2 ml Cari Carr CNM Aug 12, 2021 08:26
[2021-08-12] MEDS ORDERED: PRENATAL VITAMINS CHEWABLE TABLET PO SCH (09:00)
[2021-08-12 17:57] VITALS: BP 106/54
[2021-08-13 06:00] VITALS: BP 123/59
[2021-08-13] MEDS ORDERED: ACET-683 PO (09:01)
[2021-08-13] MEDS ORDERED: COLA100C5 PO (09:01)
[2021-08-13] MEDS ORDERED: NORE0.353 PO (09:01)
[2021-08-13] MEDS ORDERED: IBUP-1022 PO (09:01)
== END 2021-08-13 14:43 | disposition home or self-care (01) | DRG 806 ==
LOC: M LDO 17:21 → M LDI 18:47 → M OBS 08-11 18:10
PROVIDERS: ADMIT Advanced Practice Midwife; ATTEND Specialist
PROC: 10E0XZZ Delivery of Products of Conception, External Approach (ICD-10-PCS; principal; 2021-08-11)
DX: O48.0 Post-term pregnancy (principal); Z37.0 Single live birth; O72.1 Other immediate postpartum hemorrhage; Z3A.40 40 weeks gestation of pregnancy; O99.214 Obesity complicating childbirth; E66.9 Obesity, unspecified; O99.284 Endocrine, nutritional and metabolic diseases complicating childbirth; O99.344 Other mental disorders complicating childbirth; F43.10 Post-traumatic stress disorder, unspecified; O66.0 Obstructed labor due to shoulder dystocia

== ENCOUNTER 2021-09-22 03:33 | Emergency (ER) | payer OTHER ==
[~2021-09-22] VITALS: Ht 172.7 cm; Wt 112.9 kg
[~2021-09-22 03:33] MED LIST changes: +ACET-683 PO; +COLA100C5 PO; +IBUP-1022 PO; +NORE0.353 PO
[2021-09-22 03:35] VITALS: BP 120/69
--- OUTSIDE RECORDS SUMMARY | 2021-09-22 03:41 | CCD ---
Author Author [facility] Organization [facility] Address Unknown Phone Unavailable Care Team Providers Care Senior Mobile Web Developer Name Role Phone Melia Burgos Unavailable PROBLEMS Type Condition ICD9-CM Code NZB80-DD Code Onset Dates Condition S tatus W/U Status Risk SNOMED Code Notes Problem Supervision of other normal Z34.80 Ac tive confirm 442357372 Problem Other obesity due to excess calories E66.09 Act alma confirmed 600026661 Problem BMI 35.0-35.9,adult Z68.35 Active confirmed 499688853 Problem Obesity affecting in second trimester O9 9.212 Active confirmed 667345636391 Problem Depression with anxiety F41.8 Active confirmed 497099606 Problem Anxiety with depression F41.8 Active confirmed 908848864 Problem Obesity complicating in first trimester O99.211 Active confirmed 619246723092 Problem Obesity complicating , third trimester O9 9.213 Active confirmed 667589441942 Problem BMI 34.0-34.9,adult Z68.34 Active confirmed 099677531 Problem PTSD (post-traumatic stress disorder) F43.10 Ac tive confirmed 82813479 Problem Maternal care for anti-D [Rh ] antibodies, third trimester, not applicable or unspecified O36.0130 Active confirmed Problem Obesity complicating in third trimester O99.213 Active confirmed Problem Obesity, unspecified E66.9 Active confirmed 604079476 ALLERGIES No Known Allergies ENCOUNTERS from 1995 to 2021-08-11 Encounter Location Date Provider Diagnosis [facility] [address] [place] [address] [place] [address] Jul, Melia Burgos IMMUNIZATIONS Vaccine Route Administration Date Status TDAP [...] Information RESULTS No Results REASON FOR VISIT conractions MEDICAL (GENERAL) HISTORY Type Description Date Medical History depression/anxiety/ptsd Medical History sleep apena Surgical History T&A removed Surgical History wisdom teeth extraction Hospitalization History depression Goals Section No Information Health Concerns No Information MEDICAL EQUIPMENT No Information MENTAL STATUS No Information FUNCTIONAL STATUS No Information ASSESSMENTS No Information PLAN OF TREATMENT Next Appt Details Provider Name:Drewandie Rachel, 07:15:00 AM, [address] [facility], , [place], [address], Insurance Providers Payer Name Payer Address Payer Phone Insured Name Patient Relati onship to Insured Coverage Start Date Coverage End Date [place] [phone] JOANNA BENÍTEZ self
--- OUTSIDE RECORDS SUMMARY | 2021-09-22 03:41 | CCD ---
Author Author [facility] Organization [facility] Address Unknown Phone Unavailable Care Team Providers Care Addresser Name Role Phone Alissa Sullivan Unavailable PROBLEMS Type Condition ICD9-CM Code ZSD53-MT Code Onset Dates Condition S tatus W/U Status Risk SNOMED Code Notes Problem Supervision of other normal Z34.80 Ac tive confirm 072452362 Problem Other obesity due to excess calories E66.09 Act alma confirmed 492967881 Problem BMI 35.0-35.9,adult Z68.35 Active confirmed 206805838 Problem Obesity affecting in second trimester O9 9.212 Active confirmed 802692404729 Problem Depression with anxiety F41.8 Active confirmed 319313082 Problem Anxiety with depression F41.8 Active confirmed 627523183 Problem Obesity complicating in first trimester O99.211 Active confirmed 534415796834 Problem Obesity complicating , third trimester O9 9.213 Active confirmed 855469491635 Problem BMI 34.0-34.9,adult Z68.34 Active confirmed 244751366 Problem PTSD (post-traumatic stress disorder) F43.10 Ac tive confirmed 91202386 Problem Maternal care for anti-D [Rh ] antibodies, third trimester, not applicable or unspecified O36.0130 Active confirmed Problem Obesity complicating in third trimester O99.213 Active confirmed Problem Obesity, unspecified E66.9 Active confirmed 341351640 ALLERGIES No Known Allergies ENCOUNTERS from 1995 to 2021-08-16 Encounter Location Date Provider Diagnosis [facility] [address] [place] [address] [place] [address] Jul, Alissa Sullivan Blood pressure check Z01.30 IMMUNIZATIONS Vaccine Route Administration Date Status TDAP [...] day(s) Jan, Active PROCEDURES from 1995 to 2021-08-16 Procedure Date Ordered Result Body Site Nurse Visit Blood Pressure Check 2021-08-15 N/A RESULTS No Results REASON FOR VISIT PP BP Check MEDICAL (GENERAL) HISTORY Type Description Date Medical History depression/anxiety/ptsd Medical History sleep apena Surgical History T&A removed Surgical History wisdom teeth extraction Hospitalization History depression Goals Section No Information Health Concerns No Information MEDICAL EQUIPMENT No Information MENTAL STATUS No Information FUNCTIONAL STATUS No Information ASSESSMENTS Encounter Date Diagnosis Assessment Notes Treatment Notes Treatm ent Clinical Notes Jul, Blood pressure check (ICD-10 - Z01.30) PLAN OF TREATMENT Next Appt Details Provider Name:Frantz George Reggie, 2021-09-23 10:45:00 AM, [address] [facility], , [place], [address], Insurance Providers Payer Name Payer Address Payer Phone Insured Name Patient Relati onship to Insured Coverage Start Date Coverage End Date [place] [phone] JOANNA BENÍTEZ self
--- OUTSIDE RECORDS SUMMARY | 2021-09-22 03:41 | CCD | Continuity of Care Document ---
Author Author Bee DELGADILLO PA-C Organization Unknown Address [facility] Behavioral Health [address] [place] [address] Phone [phone] Care Team Providers Care Professor Of Business Administration Name Role Phone Chloe Santana MD AUTM [phone] [facility] Sleep Center AUTM [phone] [facility] Behavioral Health AUTM [phone] [facility]-DR. Beckman AUTM [phone] Problems Active Problems Provider Date Bilateral temporomandibular [...] 20mg Tablets 1 by mouth every morning 30tabs Alphonse Ramon MD 04/01/2021 One Daily Tablets 1 by mouth [...] H/L Range Note Complete Blood Count 05/04/2021 [facility] White Blood Count 9.7 10 Normal [...] % Normal 0-0 Laboratory test finding 05/04/2021 [facility] Glucose Challenge Test 1 Hour 106 mg/dL Normal Less Than 1 40 Type & Screen -Incl Blood Type,Robert,AB SC 05/04/2021 [facility] Blood Type O NEGATIVE Normal AB Screen (Indirect Dougie)Vis NEGATIVE Normal Laboratory test finding 05/04/2021 [facility] Rhogam TRANSFUSED PRODU <SEE NOTE> 1 [...] call . Procedures Date Code Description Status 09/01/2021 92603 Office/Outpatient Established Mo d MDM 30-39 Min Completed 06/02/2021 04102 Psychiatric Diag Eval W/Medical Service Completed 04/27/2021 80039 Preventive Counseling Indiv 45 M in Completed 03/14/2021 87898 Psychiatric Diagnostic Evaluatio n Completed Medical Devices Description No Information Available Encounters Type Date Location Provider Dx Diagnosis Office Visit 09/01/2021 1:00p Behavioral [facility] Harjeet Delgadillo PA-C F32.89 Other specified depressive episodes F41.9 Anxiety disorder, unspecifie d F60.9 Personality disorder, unspec ified Assessments Date Code Description Provider 09/01/2021 F32.89 Other specified depressive episo snehal NIRAJ ColvinC 09/01/2021 F41.9 Anxiety disorder, unspecified Ca NIRAJ EncarnacionC 09/01/2021 F60.9 Personality disorder, unspecifie d NIRAJ ColvinC 08/09/2021 F32.89 Other specified depressive episo snehal Ronnie Mcgraw, [facility] 08/09/2021 F41.9 Anxiety disorder, unspecified Mi ethan Mcgraw, [facility] 08/09/2021 F43.10 Post-traumatic stress disorder, unspecified Ronnie Mcgraw, [facility] 06/29/2021 F32.89 Other specified depressive episo snehal Ronnie Mcgraw, [facility] 06/29/2021 F41.9 Anxiety disorder, unspecified Mi ethan Mcgraw, [facility] 06/29/2021 F43.10 Post-traumatic stress disorder, unspecified Ronnie White, [facility] 06/08/2021 F32.89 Other specified depressive episo snehal Ronnie Mcgraw, [facility] 06/08/2021 F41.9 Anxiety disorder, unspecified Mi ethan White, [facility] 06/02/2021 F32.89 Other specified depressive episo snehal NIRAJ ColvinC 06/02/2021 F41.9 Anxiety disorder, unspecified Ca NIRAJ EncarnacionC 06/02/2021 F60.9 Personality disorder, unspecifie d NIRAJ ColvinC 05/24/2021 F32.89 Other specified depressive episo snehal Ronnie Mcgraw, [facility] 05/24/2021 F41.9 Anxiety disorder, unspecified Sommer Mcgraw, [facility] 05/24/2021 F43.10 Post-traumatic stress disorder, unspecified Ronnie Mcgraw, [facility] 05/02/2021 F32.89 Other specified depressive episo snehal Ronnie Mcgraw, [facility] 05/02/2021 F41.9 Anxiety disorder, unspecified Sommer Mcgraw, [facility] 05/02/2021 F43.10 Post-traumatic stress disorder, unspecified Ronnie Mcgraw, [facility] 04/27/2021 F32.89 Other specified depressive episo snehal Krystle Duran, RN 04/27/2021 F41.9 Anxiety disorder, unspecified An keisha Duran, RN 04/27/2021 F43.10 Post-traumatic stress disorder, unspecified Krystle Duran, RN 04/04/2021 F41.9 Anxiety disorder, unspecified Sommer Mcgraw, [facility] 04/04/2021 F32.89 Other specified depressive episo snehal Ronnie Mcgraw, [facility] 04/04/2021 F43.10 Post-traumatic stress disorder, unspecified Ronnie Mcgraw, [facility] 03/14/2021 F41.9 Anxiety disorder, unspecified Sommer Mcgraw, [facility] 03/14/2021 F32.89 Other specified depressive episo snehal Ronnie Mcgraw, [facility] 03/14/2021 F43.10 Post-traumatic stress disorder, unspecified Ronnie Mcgraw, [facility] Plan of Treatment No Information Available Functional Status Functional Condition Comment Date Status Glasses Active Mental Status Description No Information Available Referrals Description No Information Available
--- OUTSIDE RECORDS SUMMARY | 2021-09-22 03:41 | CCD | Continuity of Care Document ---
Author Author Bee SPENCE PA-C Organization Unknown Address [address] [place] [address] Phone [phone] Care Team Providers Care Slate Splitting Supervisor Name Role Phone Chloe Santana MD AUTM [phone] [facility] Sleep Center AUTM [phone] [facility] Behavioral Health AUTM [phone] [facility]-DR. Beckman AUTM [phone] Problems Active Problems Provider Date Bilateral temporomandibular [...] H/L Range Note Complete Blood Count 05/04/2021 [facility] White Blood Count 9.7 10 Normal [...] % Normal 0-0 Laboratory test finding 05/04/2021 [facility] Glucose Challenge Test 1 Hour 106 mg/dL Normal Less Than 1 40 Type & Screen -Incl Blood Type,Robert,AB SC 05/04/2021 [facility] Blood Type O NEGATIVE Normal AB Screen (Indirect Dougie)Vis NEGATIVE Normal Laboratory test finding 05/04/2021 [facility] Rhogam TRANSFUSED PRODU <SEE NOTE> 1 [...] . Procedures Date Code Description Status 06/02/2021 43921 Psychiatric Diag Eval W/Medical Service Completed 04/27/2021 08233 Preventive Counseling Indiv 45 M in Completed 03/14/2021 81533 Psychiatric Diagnostic Evaluatio n Completed Medical Devices Description No Information Available Encounters Description No Information Available Assessments Date Code Description Provider 08/09/2021 F32.89 Other specified depressive episo snehal Ronnie Mcgraw, [facility] 08/09/2021 F41.9 Anxiety disorder, unspecified Sommer Mcgraw, [facility] 08/09/2021 F43.10 Post-traumatic stress disorder, unspecified Ronnie Mcgraw, [facility] 06/29/2021 F32.89 Other specified depressive episo snehal Ronnie Mcgraw, [facility] 06/29/2021 F41.9 Anxiety disorder, unspecified Sommer Mcgraw, [facility] 06/29/2021 F43.10 Post-traumatic stress disorder, unspecified Ronnie Mcgraw, [facility] 06/08/2021 F32.89 Other specified depressive episo snehal Ronnie Mcgraw, [facility] 06/08/2021 F41.9 Anxiety disorder, unspecified Sommer Mcgraw, [facility] 06/02/2021 F32.89 Other specified depressive episo snehal NIRAJ ColvinC 06/02/2021 F41.9 Anxiety disorder, unspecified Ca NIRAJ EncarnacionC 06/02/2021 F60.9 Personality disorder, unspecifie d JÚNIOR Colvin-C 05/24/2021 F32.89 Other specified depressive episo snehal Ronnie Mcgraw, [facility] 05/24/2021 F41.9 Anxiety disorder, unspecified Sommer Mcgraw, [facility] 05/24/2021 F43.10 Post-traumatic stress disorder, unspecified Ronnie Mcgraw, [facility] 05/02/2021 F32.89 Other specified depressive episo snehal Ronnie Mcgraw, [facility] 05/02/2021 F41.9 Anxiety disorder, unspecified Sommer Mcgraw, [facility] 05/02/2021 F43.10 Post-traumatic stress disorder, unspecified Ronnie Mcgraw, [facility] 04/27/2021 F32.89 Other specified depressive episo snehal Krystle Duran RN 04/27/2021 F41.9 Anxiety disorder, unspecified Kimmy Duran RN 04/27/2021 F43.10 Post-traumatic stress disorder, unspecified Krystle Duran, [facility] 04/04/2021 F41.9 Anxiety disorder, unspecified Sommer Mcgraw, [facility] 04/04/2021 F32.89 Other specified depressive episo snehal Ronnie Mcgraw, [facility] 04/04/2021 F43.10 Post-traumatic stress disorder, unspecified Ronnie Mcgraw, [facility] 03/14/2021 F41.9 Anxiety disorder, unspecified Sommer Mcgraw, [facility] 03/14/2021 F32.89 Other specified depressive episo snehal Ronnie Mcgraw, [facility] 03/14/2021 F43.10 Post-traumatic stress disorder, unspecified STEVEN Lara Plan of Treatment Future Appointment(s):* 09/01/2021 1:30 pm - STEVEN Lara at [facility] * 09/01/2021 1:00 pm - Harjeet Delgadillo PA-C at [facility] Functional Status Functional Condition Comment Date Status Glasses Active Mental Status Description No Information Available Referrals Description No Information Available
--- OUTSIDE RECORDS SUMMARY | 2021-09-22 03:41 | CCD | Continuity of Care Document ---
Author Author Bee GRAHAM [facility] Organization Unknown Address [address] [place] [address] Phone [phone] Care Team Providers Care Brick Dropper Name Role Phone Chloe Santana MD AUTM [phone] [facility] Sleep Center AUTM [phone] [facility] Behavioral Health AUTM [phone] [facility]. Beckman AUTM Problems Active [...] 01/14/2021 [facility] Unable to assess criticality 01/14/2021 [facility] Unable to assess criticality 04/27/2021 Medications Active [...] H/L Range Note Complete Blood Count 05/04/2021 [facility] White Blood Count 9.7 10 Normal [...] % Normal 0-0 Laboratory test finding 05/04/2021 [facility] Glucose Challenge Test 1 Hour 106 mg/dL Normal Less Than 1 40 Type & Screen -Incl Blood Type,Robert,AB SC 05/04/2021 [facility] Blood Type O NEGATIVE Normal AB Screen (Indirect Dougie)Vis NEGATIVE Normal Laboratory test finding 05/04/2021 [facility] Rhogam TRANSFUSED PRODU <SEE NOTE> 1 [...] . Procedures Date Code Description Status 09/01/2021 13072 Office/Outpatient Established Mo d MDM 30-39 Min Completed 06/02/2021 11455 Psychiatric Diag Eval W/Medical Service Completed 04/27/2021 05479 Preventive Counseling Indiv 45 M in Completed 03/14/2021 78443 Psychiatric Diagnostic Evaluatio n Completed Medical Devices Description No Information Available Encounters Type Date Location Provider Dx Diagnosis Office Visit 09/01/2021 1:00p Behavioral [facility] Harjeet Delgadillo PA-C F32.89 Other specified depressive episodes F41.9 Anxiety disorder, unspecifie d F60.9 Personality disorder, unspec ified Assessments Date Code Description Provider 09/01/2021 F32.89 Other specified depressive episo snehal Ronnie Graham, [facility] 09/01/2021 F32.89 Other specified depressive episo snehal Harjeet Delgadillo PA-C 09/01/2021 F41.9 Anxiety disorder, unspecified Mi ethan Graham, [facility] 09/01/2021 F41.9 Anxiety disorder, unspecified Sandra Delgadillo PA-C 09/01/2021 F60.9 Personality disorder, unspecifie d Ronnie Graham, [facility] 09/01/2021 F60.9 Personality disorder, unspecifie d Harjeet Delgadillo PA-C 08/09/2021 F32.89 Other specified depressive episo snehal Ronnie Graham, [facility] 08/09/2021 F41.9 Anxiety disorder, unspecified Mi ethan Graham, [facility] 08/09/2021 F43.10 Post-traumatic stress disorder, unspecified Ronnie Graham, [facility] 06/29/2021 F32.89 Other specified depressive episo snehal Ronnie Graham, [facility] 06/29/2021 F41.9 Anxiety disorder, unspecified Mi ethan Graham, [facility] 06/29/2021 F43.10 Post-traumatic stress disorder, unspecified Ronnie Graham, [facility] 06/08/2021 F32.89 Other specified depressive episo snehal Ronnie Graham, [facility] 06/08/2021 F41.9 Anxiety disorder, unspecified Mi ethan White, [facility] 06/02/2021 F32.89 Other specified depressive episo snehal Harjeet Delgadillo PA-C 06/02/2021 F41.9 Anxiety disorder, unspecified Ca leb Delgadillo, PA-C 06/02/2021 F60.9 Personality disorder, unspecifie d Harjeet Delgadillo PA-C 05/24/2021 F32.89 Other specified depressive episo snehal Ronnie Graham, [facility] 05/24/2021 F41.9 Anxiety disorder, unspecified Sommer Graham, [facility] 05/24/2021 F43.10 Post-traumatic stress disorder, unspecified Ronnie Graham, [facility] 05/02/2021 F32.89 Other specified depressive episo snehal Ronnie Graham, [facility] 05/02/2021 F41.9 Anxiety disorder, unspecified Sommer long White, [facility] 05/02/2021 F43.10 Post-traumatic stress disorder, unspecified Ronnie Lucien, [facility] 04/27/2021 F32.89 Other specified depressive episo snehal Krystle Duran, RN 04/27/2021 F41.9 Anxiety disorder, unspecified An keisha Duran, RN 04/27/2021 F43.10 Post-traumatic stress disorder, unspecified Krystle Duran, RN 04/04/2021 F41.9 Anxiety disorder, unspecified Sommer long Lucien, [facility] 04/04/2021 F32.89 Other specified depressive episo snehal Ronnie Lucien, [facility] 04/04/2021 F43.10 Post-traumatic stress disorder, unspecified Ronnie Graham, [facility] 03/14/2021 F41.9 Anxiety disorder, unspecified Sommer long Lucien, [facility] 03/14/2021 F32.89 Other specified depressive episo snehal Ronnie Lucien, [facility] 03/14/2021 F43.10 Post-traumatic stress disorder, unspecified STEVEN Lara Plan of Treatment Future Appointment(s):* 09/19/2021 11:00 am - STEVEN Lara at [facility] Functional Status Functional Condition Comment Date Status Glasses Active Mental Status Description No Information Available Referrals Description No Information Available
--- OUTSIDE RECORDS SUMMARY | 2021-09-22 03:41 | CCD ---
Author Author [facility] Organization [facility] Address Unknown Phone Unavailable Care Team Providers Care Advertising Account Representative Name Role Phone Alissa Sullivan Unavailable PROBLEMS Type Condition ICD9-CM Code ONM76-YS Code Onset Dates Condition S tatus W/U Status Risk SNOMED Code Notes Problem Supervision of other normal Z34.80 Ac tive confirm 396037441 Problem Other obesity due to excess calories E66.09 Act alma confirmed 472839640 Problem BMI 35.0-35.9,adult Z68.35 Active confirmed 442850779 Problem Obesity affecting in second trimester O9 9.212 Active confirmed 560395423199 Problem Depression with anxiety F41.8 Active confirmed 370552835 Problem Anxiety with depression F41.8 Active confirmed 247814154 Problem Obesity complicating in first trimester O99.211 Active confirmed 046876929008 Problem Obesity complicating , third trimester O9 9.213 Active confirmed 907113211564 Problem BMI 34.0-34.9,adult Z68.34 Active confirmed 127964927 Problem PTSD (post-traumatic stress disorder) F43.10 Ac tive confirmed 68310797 Problem Maternal care for anti-D [Rh ] antibodies, third trimester, not applicable or unspecified O36.0130 Active confirmed Problem Obesity complicating in third trimester O99.213 Active confirmed Problem Obesity, unspecified E66.9 Active confirmed 532982262 ALLERGIES No Known Allergies ENCOUNTERS from 1995 to 2021-08-18 Encounter Location Date Provider Diagnosis [facility] [address] [place] [address] [place] [address] Jul, Alissa Sullivan IMMUNIZATIONS Vaccine Route Administration Date Status TDAP [...] Information RESULTS No Results REASON FOR VISIT PP Concerns MEDICAL (GENERAL) HISTORY Type Description Date Medical History depression/anxiety/ptsd Medical History sleep apena Surgical History T&A removed Surgical History wisdom teeth extraction Hospitalization History depression Goals Section No Information Health Concerns No Information MEDICAL EQUIPMENT No Information MENTAL STATUS No Information FUNCTIONAL STATUS No Information ASSESSMENTS No Information PLAN OF TREATMENT Next Appt Details Provider Name:Frantz George Reggie, 2021-09-23 10:45:00 AM, [address] [facility], , [place], [address], Insurance Providers Payer Name Payer Address Payer Phone Insured Name Patient Relati onship to Insured Coverage Start Date Coverage End Date [place] [phone] JOANNA BENÍTEZ self
--- OUTSIDE RECORDS SUMMARY | 2021-09-22 03:41 | CCD ---
Author Author [facility] Organization [facility] Address Unknown Phone Unavailable Care Team Providers Care Clock And Watch Hands Dipper Name Role Phone Edith Ferreira Unavailable PROBLEMS Type Condition ICD9-CM Code OPU57-XN Code Onset Dates Condition S tatus W/U Status Risk SNOMED Code Notes Problem Supervision of other normal Z34.80 Ac tive confirm 845635030 Problem Other obesity due to excess calories E66.09 Act alma confirmed 792473146 Problem BMI 35.0-35.9,adult Z68.35 Active confirmed 734672000 Problem Obesity affecting in second trimester O9 9.212 Active confirmed 800837375305 Problem Depression with anxiety F41.8 Active confirmed 350602782 Problem Anxiety with depression F41.8 Active confirmed 574064944 Problem Obesity complicating in first trimester O99.211 Active confirmed 731618340918 Problem Obesity complicating , third trimester O9 9.213 Active confirmed 977219237717 Problem BMI 34.0-34.9,adult Z68.34 Active confirmed 001569533 Problem PTSD (post-traumatic stress disorder) F43.10 Ac tive confirmed 63916472 Problem Maternal care for anti-D [Rh ] antibodies, third trimester, not applicable or unspecified O36.0130 Active confirmed Problem Obesity complicating in third trimester O99.213 Active confirmed Problem Obesity, unspecified E66.9 Active confirmed 132954283 ALLERGIES No Known Allergies ENCOUNTERS from 1995 to 2021-08-09 Encounter Location Date Provider Diagnosis [facility] [address] [facility] [phone] [place] [address] Jul, Edith Ferreira IMMUNIZATIONS Vaccine Route Administration [...] Information RESULTS No Results REASON FOR VISIT appt MEDICAL (GENERAL) HISTORY Type Description Date Medical History depression/anxiety/ptsd Medical History sleep apena Surgical History T&A removed Surgical History wisdom teeth extraction Hospitalization History depression Goals Section No Information Health Concerns No Information MEDICAL EQUIPMENT No Information MENTAL STATUS No Information FUNCTIONAL STATUS No Information ASSESSMENTS No Information PLAN OF TREATMENT Next Appt Details Provider Name:Drew Rachel, 07:15:00 AM, [address] [facility], , [place], [address], Insurance Providers Payer Name Payer Address Payer Phone Insured Name Patient Relati onship to Insured Coverage Start Date Coverage End Date [place] [phone] JOANNA BNEÍTEZ self
--- OUTSIDE RECORDS SUMMARY | 2021-09-22 03:41 | CCD | Continuity of Care Document ---
Author Author Bee GRAHAM [facility] Organization Unknown Address [address] [place] [address] Phone [phone] Care Team Providers Care Lead Electrical Controls Engineer Name Role Phone Chloe Santana MD [facility] [phone] [facility] Sleep Center [facility] [phone] [facility] Behavioral Health [facility] [phone] [facility]-DR. Beckman [facility] Problems Active [...] 01/14/2021 [employer] Unable to assess criticality 01/14/2021 [place] Unable to assess criticality 04/27/2021 Medications Active [...] H/L Range Note Complete Blood Count 05/04/2021 [facility] White Blood Count 9.7 10 Normal [...] % Normal 0-0 Laboratory test finding 05/04/2021 [facility] Glucose Challenge Test 1 Hour 106 mg/dL Normal Less Than 1 40 Type & Screen -Incl Blood Type,Robert,AB SC 05/04/2021 [facility] Blood Type O NEGATIVE Normal AB Screen (Indirect Dougie)Vis NEGATIVE Normal Laboratory test finding 05/04/2021 [facility] [employer] TRANSFUSED PRODU <SEE NOTE> 1 [...] . Procedures Date Code Description Status 09/01/2021 96772 Office/Outpatient Established Mo d MDM 30-39 Min Completed 06/02/2021 16092 Psychiatric Diag Eval W/Medical Service Completed 04/27/2021 62486 Preventive Counseling Indiv 45 M in Completed Medical Devices Description No Information Available Encounters Description No Information Available Assessments Date Code Description Provider 09/19/2021 F32.89 Other specified depressive episo snehal Ronnie Graham, [facility] 09/19/2021 F41.9 Anxiety disorder, unspecified Mi ethan Graham, [facility] 09/19/2021 F60.9 Personality disorder, unspecifie d Ronnie Graham, [facility] 09/19/2021 F43.10 Post-traumatic stress disorder, unspecified Ronnie Graham, [facility] 09/01/2021 F32.89 Other specified depressive episo snehal Ronnie Graham, [facility] 09/01/2021 F32.89 Other specified depressive episo snehal Harjeet Delgadillo, PA-C 09/01/2021 F41.9 Anxiety disorder, unspecified Mi ethan Graham, [facility] 09/01/2021 F41.9 Anxiety disorder, unspecified Ca michelleb Leona, PA-C 09/01/2021 F60.9 Personality disorder, unspecifie d Ronnie Graham, [facility] 09/01/2021 F60.9 Personality disorder, unspecifie d Harjeet Leona, PA-C 08/09/2021 F32.89 Other specified depressive episo snehal Ronnie Graham, [facility] 08/09/2021 F41.9 Anxiety disorder, unspecified Mi ethan Graham, [facility] 08/09/2021 F43.10 Post-traumatic stress disorder, unspecified Ronnie Graham, [facility] 06/29/2021 F32.89 Other specified depressive episo snehal Ronnie Graham, [facility] 06/29/2021 F41.9 Anxiety disorder, unspecified Mi ethan Graham, [facility] 06/29/2021 F43.10 Post-traumatic stress disorder, unspecified Ronnie Graham, [facility] 06/08/2021 F32.89 Other specified depressive episo snehal Ronnie Graham, [facility] 06/08/2021 F41.9 Anxiety disorder, unspecified Mi ethan Graham, [facility] 06/02/2021 F32.89 Other specified depressive episo snehal Harjeet Delgadillo, PA-C 06/02/2021 F41.9 Anxiety disorder, unspecified Ca bhumi Delgadillo PA-C 06/02/2021 F60.9 Personality disorder, unspecifie d Harjeet Delgadillo PA-C 05/24/2021 F32.89 Other specified depressive episo snehal Ronnie Lucien, [facility] 05/24/2021 F41.9 Anxiety disorder, unspecified Sommer long Lucien, [facility] 05/24/2021 F43.10 Post-traumatic stress disorder, unspecified Ronnie Lucien, [facility] 05/02/2021 F32.89 Other specified depressive episo nsehal Ronnie Graham, [facility] 05/02/2021 F41.9 Anxiety disorder, unspecified Sommer willsshawanda Graham, [facility] 05/02/2021 F43.10 Post-traumatic stress disorder, unspecified Ronnie Lucien, [facility] 04/27/2021 F32.89 Other specified depressive episo snehal Krystle Duran, RN 04/27/2021 F41.9 Anxiety disorder, unspecified An keisha Duran, RN 04/27/2021 F43.10 Post-traumatic stress disorder, unspecified Krystle Duran, RN 04/04/2021 F41.9 Anxiety disorder, unspecified Sommer long Lucien, [facility] 04/04/2021 F32.89 Other specified depressive episo snehal Ronnie Lucien, [facility] 04/04/2021 F43.10 Post-traumatic stress disorder, unspecified STEVEN Lara Plan of Treatment Future Appointment(s):* 10/28/2021 10:30 am - STEVEN Lara at [facility] * 10/28/2021 11:20 am - Harjeet Delgadillo PA-C at [facility] Functional Status Functional Condition Comment Date Status Glasses Active Mental Status Description No Information Available Referrals Description No Information Available
--- OUTSIDE RECORDS SUMMARY | 2021-09-22 03:42 | CCD ---
Author Author [facility] Organization [facility] Address Unknown Phone Unavailable Care Team Providers Care Commercial Artist Name Role Phone SANTOS MAURICIO Unavailable Unavailable GUILLORY, J CHEVY PA Unavailable [...] Unavailable GUILLORY, J CHEVY PA Unavailable Unavailable BEBE, JOSÉ MIGUEL JOSE MARIA PA Unavailable Unavailable BEBE, JOSÉ MIGUEL MOISE PA Unavailable Unavailable BEBE, JOSÉ MIGUEL JOSE [...] Unavailable Unavailable Richy Ramon MD Unavailable Unavailable Rihcy Ramon MD Unavailable Unavailable Richy Ramon MD [...] Unavailable GUILLORY, J CHEVY PA Unavailable Unavailable Kunnumpurath, F Chloe MD Unavailable [...] Unavailable Kunnumpurath, F Chloe MD Unavailable Unavailable Re-disclosure Warning The records [...] is protected by Article 27-F of the [facility] Public Health law. If you continue you may have access to information: Regarding HIV / AIDS; Provided by facilities licensed or operated by the [facility] Office of Mental Health; or Provided by the [facility] Office for People With Developmental Disabilities. If such information is present, then the following [facility] mandated warning applies: This information has been [...] law may result in a fine or usp sentence or both. A general authorization for the release of medical or other information is NOT sufficient authorization for further disc losure. Encounters Encounter Providers Location Date Indications Data Source(s ) Outpatient Attender: MAURICIO Talleyer: Alphonse albrecht MD 09/19/2021 10:55:00 AM EST - 09/19/2021 10:55:00 AM [facility] Outpatient Attender: MAURICIO Suresh: Alphonse albrecht MD 09/01/2021 01:16:00 PM [facility] - 09/01/2021 01:16:00 PM [facility] Outpatient Attender: CHEVY Juan: Alphonse kearns MD 09/01/2021 01:01:00 PM [facility] - 09/01/2021 01:01:00 PM [facility] Outpatient Attender: CHEVY GUILLORY [facility] 09/01 12:00:00 PM EST [facility] Unknown [address] [facility] [address] 08/15/2021 12:00:00 AM EDT eCW1 ([facility]) ([facility]) [facility] Nurse Visit [address] [place] [address] 08/15/2021 12:00:00 AM EDT eCW1 ([facility]) Unknown [address] [facility] [address] 08/10/2021 12:00:00 AM EDT eCW1 ([facility]) Outpatient Attender: MAURICIO Talleyer: Alphonse albrecht MD 08/09/2021 10:11:00 AM EDT - 08/09/2021 10:11:00 AM EDT [facility] Unknown [address] [facility] [address] 08/09/2021 12:00:00 AM EDT eCW1 ([facility]) [place] [address] [address] 08/04/2021 12:00:00 AM EDT eCW1 ([facility]) Outpatient Attender: JOSE MARIA CALLEJAS 03:27:00 PM EDT - 08/03/2021 03:27:00 PM EDT [facility] Unknown [address] [address] 08/03/2021 12:00:00 AM EDT eCW1 ([facility]) ( ESTOB) WCenter Est OB [address] [place] [address] 08/02/2021 12:00:00 AM EDT eCW1 ([facility]) (WC ESTOB) [facility] Est OB [address] [place] [address] 07/26/2021 12:00:00 AM EDT eCW1 ([facility]) (WC ESTOB) [facility] Est OB [address] [place] [address] 07/20/2021 12:00:00 AM EDT eCW1 ([facility]) (WC ESTOB) [facility] Est OB [address] [place] [address] 07/15/2021 12:00:00 AM EDT eCW1 ([facility]) (WC ESTOB) [facility] Est OB [address] [place] [address] 07/06/2021 12:00:00 AM EDT eCW1 ([facility]) Outpatient Attender: MAURICIO GRAHAMReferrer: Alphonse albrecht MD 06/29/2021 08:51:00 AM EDT - 06/29/2021 08:51:00 AM EDT [facility] ( ESTOB) enter Est OB [address] [place] [address] 06/21/2021 12:00:00 AM EDT eCW1 ([facility]) Outpatient Attender: MAURICIO GRAHAM 06/08/20 10:15:00 AM EDT - 06/08/2021 10:15:00 AM EDT [facility] Outpatient Attender: CHEVY Albertoer: Alphonse kearns MD 06/02/2021 12:06:00 PM EDT - 06/02/2021 12:06:00 PM EDT [facility] ([facility]) [facility] Est OB [address] [place] [address] 06/01/2021 12:00:00 AM EDT eCW1 ([facility]) Outpatient Attender: MAURICIO GRAHAMReferrer: Alphonse albrecht MD 05/24/2021 02:58:00 PM EDT - 05/24/2021 02:58:00 PM EDT [facility] ([facility]) [facility] Est OB [address] [place] [address] 05/04/2021 12:00:00 AM EDT eCW1 ([facility]) Outpatient Attender: MAURICIO GRAHAMReferrer: Alphonse albrecht MD 05/02/2021 01:51:00 PM EDT - 05/02/2021 01:51:00 PM EDT [facility] Outpatient Attender: Alphonse Ramon MDAttender: CHEVY CALLEJAS 04/27/2021 09:54:00 AM EDT - 04/27/2021 09:54:00 AM EDT [facility] Outpatient Attender: MAURICIO GRAHAM 04/04/20 08:02:00 AM EDT - 04/04/2021 08:02:00 AM EDT [facility] ([facility]) [facility] Est OB [address] [place] [address] 04/01/2021 12:00:00 AM EDT eCW1 ([facility]) Outpatient Attender: MAURICIO GRAHAM 03/14/20 09:03:00 AM EDT - 03/14/2021 09:03:00 AM EDT [facility] ( ESTOB) enter Est OB [address] [place] [address] 03/04/2021 12:00:00 AM EDT eCW1 ([facility]) [place] [address] [facility] [address] 02/28/2021 12:00:00 AM EDT eCW1 ([facility]) ( 1PN) WCenter 1st [address] [place] [address] 02/04/2021 12:00:00 AM EDT eCW1 ([facility]) Outpatient Attender: Chloe Santana MD 0 01/14/2021 10:33:00 AM EDT - 01/14/2021 10:33:00 AM EDT [facility] Immunizations Vaccine Date Status Description Data Source(s) Tdap 06/21/2021 09:31:00 AM EDT completed e CW1 ([facility]) Tdap 06/21/2021 09:31:00 AM EDT completed e CW1 ([facility]) Tdap 06/21/2021 09:31:00 AM EDT completed e CW1 ([facility]) Tdap 06/21/2021 09:31:00 AM EDT completed e CW1 ([facility]) Tdap 06/21/2021 09:31:00 AM EDT completed e CW1 ([facility]) Tdap 06/21/2021 09:31:00 AM EDT completed e CW1 ([facility]) Tdap 06/21/2021 09:31:00 AM EDT completed e CW1 ([facility]) Tdap 06/21/2021 09:31:00 AM EDT completed e CW1 ([facility]) Tdap 06/21/2021 09:31:00 AM EDT completed e CW1 ([facility]) Tdap 06/21/2021 09:31:00 AM EDT completed e CW1 ([facility]) Tdap 06/21/2021 09:31:00 AM EDT completed e CW1 ([facility]) Tdap 06/21/2021 09:31:00 AM EDT completed e CW1 ([facility]) 06/01/2021 10:36:00 AM EDT completed e CW1 ([facility]) 06/01/2021 10:36:00 AM EDT completed e CW1 ([facility]) 06/01/2021 10:36:00 AM EDT completed e CW1 ([facility]) 06/01/2021 10:36:00 AM EDT completed e CW1 ([facility]) 06/01/2021 10:36:00 AM EDT completed e CW1 ([facility]) 06/01/2021 10:36:00 AM EDT completed e CW1 ([facility]) 06/01/2021 10:36:00 AM EDT completed e CW1 ([facility]) 06/01/2021 10:36:00 AM EDT completed e CW1 ([facility]) 06/01/2021 10:36:00 AM EDT completed e CW1 ([facility]) 06/01/2021 10:36:00 AM EDT completed e CW1 ([facility]) 06/01/2021 10:36:00 AM EDT completed e CW1 ([facility]) 06/01/2021 10:36:00 AM EDT completed e CW1 ([facility]) 06/01/2021 10:36:00 AM EDT completed e CW1 ([facility]) Medications Medication Brand Name Start Date Product Form Dose Route Admi nistrative Instructions Pharmacy Instructions Status Indications Reaction Description Data Source(s) Lurasidone Hydrochloride 20 MG Oral Tablet [Latuda] Latuda 04/01/2021 12:00:00 AM EDT ORAL active [facility] ([facility]) Lurasidone Hydrochloride 20 MG Oral Tablet [Latuda] Latuda 2 0 MG Latuda 20 MG 02/04/2021 12:00:00 AM EDT 1.0 {tablet_with_food} active Latuda 20 MG eCW1 ([facility]) Lurasidone Hydrochloride 20 MG Oral Tablet [Latuda] Latuda 2 0 MG Latuda 20 MG 02/04/2021 12:00:00 AM EDT 2.0 {tablets_with_food} active Latuda 20 MG eCW1 ([facility]) Lurasidone Hydrochloride 20 MG Oral Tablet [Latuda] Latuda 2 0 MG Latuda 20 MG 02/04/2021 12:00:00 AM EDT 1.0 {tablet_with_food} active Latuda 20 MG eCW1 ([facility]) Lurasidone Hydrochloride 20 MG Oral Tablet [Latuda] Latuda 2 0 MG Latuda 20 MG 02/04/2021 12:00:00 AM EDT 1.0 {tablet_with_food} active Latuda 20 MG eCW1 ([facility]) Lurasidone Hydrochloride 20 MG Oral Tablet [Latuda] Latuda 2 0 MG Latuda 20 MG 02/04/2021 12:00:00 AM EDT 1.0 {tablet_with_food} active Latuda 20 MG eCW1 ([facility]) Lurasidone Hydrochloride 20 MG Oral Tablet [Latuda] Latuda 2 0 MG Latuda 20 MG 02/04/2021 12:00:00 AM EDT 1.0 {tablet_with_food} active Latuda 20 MG eCW1 ([facility]) Lurasidone Hydrochloride 20 MG Oral Tablet [Latuda] Latuda 2 0 MG Latuda 20 MG 02/04/2021 12:00:00 AM EDT 1.0 {tablet_with_food} active Latuda 20 MG eCW1 ([facility]) Lurasidone Hydrochloride 20 MG Oral Tablet [Latuda] Latuda 2 0 MG Latuda 20 MG 02/04/2021 12:00:00 AM EDT 2.0 {tablets_with_food} active Latuda 20 MG eCW1 ([facility]) Lurasidone Hydrochloride 20 MG Oral Tablet [Latuda] Latuda 2 0 MG Latuda 20 MG 02/04/2021 12:00:00 AM EDT 1.0 {tablet_with_food} active Latuda 20 MG eCW1 ([facility]) Lurasidone Hydrochloride 20 MG Oral Tablet [Latuda] Latuda 2 0 MG Latuda 20 MG 02/04/2021 12:00:00 AM EDT 1.0 {tablet_with_food} active Latuda 20 MG eCW1 ([facility]) Lurasidone Hydrochloride 20 MG Oral Tablet [Latuda] Latuda 2 0 MG Latuda 20 MG 02/04/2021 12:00:00 AM EDT 2.0 {tablets_with_food} active Latuda 20 MG eCW1 ([facility]) Lurasidone Hydrochloride 20 MG Oral Tablet [Latuda] Latuda 2 0 MG Latuda 20 MG 02/04/2021 12:00:00 AM EDT 1.0 {tablet_with_food} active Latuda 20 MG eCW1 ([facility]) Lurasidone Hydrochloride 20 MG Oral Tablet [Latuda] Latuda 2 0 MG Latuda 20 MG 02/04/2021 12:00:00 AM EDT 1.0 {tablet_with_food} active Latuda 20 MG eCW1 ([facility]) Lurasidone Hydrochloride 20 MG Oral Tablet [Latuda] Latuda 2 0 MG Latuda 20 MG 02/04/2021 12:00:00 AM EDT 1.0 {tablet_with_food} active Latuda 20 MG eCW1 ([facility]) Lurasidone Hydrochloride 20 MG Oral Tablet [Latuda] Latuda 2 0 MG Latuda 20 MG 02/04/2021 12:00:00 AM EDT 1.0 {tablet_with_food} active Latuda 20 MG eCW1 ([facility]) Lurasidone Hydrochloride 20 MG Oral Tablet [Latuda] Latuda 2 0 MG Latuda 20 MG 02/04/2021 12:00:00 AM EDT 1.0 {tablet_with_food} active Latuda 20 MG eCW1 ([facility]) Lurasidone Hydrochloride 20 MG Oral Tablet [Latuda] Latuda 2 0 MG Latuda 20 MG 02/04/2021 12:00:00 AM EDT 1.0 {tablet_with_food} active Latuda 20 MG eCW1 ([facility]) Lurasidone Hydrochloride 20 MG Oral Tablet [Latuda] Latuda 2 0 MG Latuda 20 MG 02/04/2021 12:00:00 AM EDT 1.0 {tablet_with_food} active Latuda 20 MG eCW1 ([facility]) Insurance Providers Payer name Policy type / Coverage type Policy ID Covered constitution party ID Covered constitution party's relationship to Policy Plan Information [facility] [id number] SP [id number] [facility] [id number] SP [id number] [facility] [id number] 18 [id number] [facility] [place] [id number] [employer] [facility] [place] [id number] 18 [id number] Problems, Conditions, and Diagnoses Code Display Name Description Problem Type Effective Dates Data Source(s) F609 Personality disorder, unspecified Personality di sorder, unspecified Diagnosis 09/01/2021 01:16:00 PM [facility] F419 Anxiety disorder, unspecified Anxiety disorder, unspec ified Diagnosis 09/01/2021 01:16:00 PM [facility] F3289 Other specified depressive episodes Other specif ied depressive episodes Diagnosis 09/01/2021 01:16:00 PM [facility] F4310 Post-traumatic stress disorder, unspecif ied Post-traumatic stress disorder, unspecified Diagnosis 08/09/2021 10:11:00 AM EDT [facility] Z1152 ENCOUNTER FOR SCREENING FOR COVID-19 ENCOUNTER F OR SCREENING FOR COVID-19 Diagnosis [facility]/03[facility] Personal history of nicotine dependence Personal history of nicotine dependence Diagnosis 01/14/2021 10:33:00 AM T [facility] G478 Other sleep disorders Other sleep disorders Diagnosis 01/14/2021 10:33:00 AM [facility] Z3A10 10 weeks gestation of 10 weeks gestation of Diagnosis 01/14/2021 10:33:00 AM [facility] X38782 Other mental disorders complicating preg jero, first trimester Other mental disorders complicating , first trimester Diagnosis 01/14/2021 10:33:00 AM [facility] E66.9 Obesity Obesity, unspecified Problem 07/27/2021 12:0 0:00 AM EDT eCW1 ([facility]) O99.213 Maternal obesity complicatin g , childbirth and the puerperium, antepartum Obesity complicating , third trimester Problem 07/21/2021 12:00:00 AM EDT eCW1 ([facility]) F41.8 Anxiety depression Anxiety with depression Problem 07/21/2021 12:00:00 AM EDT eCW1 ([facility]) O99.213 Obesity complicating , third tr imester Obesity complicating in third trimester Problem 06/21/2021 12:00:00 AM EDT eCW1 ([facility]) O36.0130 Maternal care for anti-D [Rh ] antibodies, third trimester, not applicable or unspecified Maternal care for anti-D [Rh] antibodies , third trimester, not applicable or unspecified Problem 06/02/2021 12:00:00 AM EDT eCW1 ([facility]) Z68.35 [id number] BMI 35.0-35.9,adult Problem 03/04/2021 12:00 :00 AM EDT eCW1 ([facility]) F43.10 [id number] PTSD (post-traumatic stress disorder) Pro blem 03/03/2021 12:00:00 AM EDT eCW1 ([facility]) F41.8 [id number] Depression with anxiety Problem 03/03/2021 1 2:00:00 AM EDT eCW1 ([facility]) O99.212 [id number] Obesity affecting in second tri mester Problem 03/03/2021 12:00:00 AM EDT eCW1 ([facility]) Z68.34 [id number] BMI 34.0-34.9,adult Problem 02/04/2021 12:00 :00 AM EDT eCW1 ([facility]) O99.211 [id number] Obesity complicating in first t rimester Problem 02/04/2021 12:00:00 AM EDT eCW1 ([facility]) E66.09 [id number] Other obesity due to excess calories Prob rossy 02/04/2021 12:00:00 AM EDT eCW1 ([facility]) Z34.80 care Supervision of other normal P prakashm 02/01/2021 12:00:00 AM EDT eCW1 ([facility]) F41.9 Anxiety state Anxiety state Problem 01/14/2021 12:00:00 AM EDT [facility] ([facility]) F32.89 Depressive disorder Depressive disorder Problem 0 01/14/2021 12:00:00 AM EDT [facility] ([facility]) M26.603 Bilateral temporomandibular joint disord er Bilateral temporomandibular joint disorder Problem 01/14/2021 12:00:00 AM EDT [facility] ([facility]) Surgeries/Procedures Procedure Description Date Indications Data Source(s) OFFICE OUTPATIENT VISIT 25 MINUTES 09/01/2021 12:00:00 AM EST [facility] ([facility]) Nurse Visit Blood Pressure Check 08/15/2021 12:00:00 A M EDT eCW1 ([facility]) TDAP VACCINE 7/> YR IM 06/21/2021 12:00:00 AM EDT eCW1 ([facility]) Psychiatric Diag Eval W/Medical Service 06/02/2021 12: 00:00 AM EDT [facility] ([facility]) Inj: RhoGAM 300mcg/1.5mL IM Rho D Immune Globulin Human 06/01/2021 12:00:00 AM EDT eCW1 ([facility]) NONSTRESS TEST 06/01/2021 12:00:00 AM EDT eCW1 ([facility]) PREVENT MED REGULATOR PIN INSERTER&/RISK FACTOR REDJ SPX 45 MIN 04/27 12:00:00 AM EDT [facility] ([facility]) Psychiatric Diagnostic Evaluation 03/14/2021 12:00:00 AM EDT [facility] ([facility]) Brief Emotional/Behav Assessment W/ Scoring Doc Per Standard Inst 01/14/2021 12:00:00 AM EDT [facility] ([facility]) Admin Patient Focused Health Risk Assessment Instrument 01/14/2021 12:00:00 AM EDT [facility] ([facility]) OFFICE OUTPATIENT NEW 30 MINUTES 01/14/2021 12:00:00 A M EDT [facility] ([facility]) Results ID Date Data Source [id number] 08/10/2021 08:02:00 PM EDT [facility] Name Value Range Interpretation Code Description Data Britany rce(s) Supporting Document(s) SARS coronavirus 2 RNA [Presence] in Res piratory specimen by DANIELE with probe detection NEGATIVE [facility] This lab was ordered by [facility] a nd reported by [facility]. ID Date Data Source [id number] 08/03/2021 03:49:00 PM EDT [facility] ([facility]) Name Value Range Interpretation Code Description Data Britany rce(s) Supporting Document(s) Covid-19 Laboratory test result [facility] ([facility]) ID Date Data Source [id number] 08/03/2021 03:32:00 PM EDT [facility] Name Value Range Interpretation Code Description Data Britany rce(s) Supporting Document(s) SARS coronavirus 2 RNA Not Detected [facility] This lab was ordered by [facility] and reported by [facility]. ID Date Data Source [id number] 08/05/2021 02:34:00 PM EDT [facility] Name Value Range Interpretation Code Description Data Britany rce(s) Supporting Document(s) SARS-CoV-2, DANIELE Not Detected Not Detected [facility] This nucleic acid amplification test was developed and its performancecharacteristics determined by [facility]. Nucleic acidamplification tests include RT-PCR and TMA. [...] assay. SARS-CoV-2, DANIELE 2 DAY TAT Performed [facility] ID Date Data Source WWBC OBS FOLLOW UP OR REPEAT 08/03/2021 12:00:00 AM EDT eCW1 ([facility]) Name Value Range Interpretation Code Description Data Britany rce(s) Supporting Document(s) WWBC OBS FOLLOW UP OR REPEAT e CW1 ([facility]) ID Date Data Source GROUP B STREP CULTURE 07/15/2021 12:00:00 AM EDT eCW1 ([facility]) Name Value Range Interpretation Code Description Data Britany rce(s) Supporting Document(s) GROUP B STREP CULTURE eCW1 ([facility]) ID Date Data Source [id number] 05/04/2021 11:17:00 AM EDT [facility] ([facility]) Name Value Range Interpretation Code Description Data Britany rce(s) Supporting Document(s) Rh immune globulin screen [interpretation] Laboratory test result [facility] ([facility]) TRANSFUSED PRODUCT: RHOGAM COUNT: 1 ID Date Data Source [id number] 05/04/2021 11:17:00 AM EDT [facility] ([facility]) Name Value Range Interpretation Code Description Data Britany rce(s) Supporting Document(s) Blood Type Laboratory test result Normal (applies to non-n umeric results) [facility] ([facility]) AB Screen (Indirect Dougie)Vis Laboratory test result Normal (applies to non- numeric results) [facility] ([facility]) ID Date Data Source [id number] 05/04/2021 11:17:00 AM EDT [facility] ([facility]) Name Value Range Interpretation Code Description Data Britany rce(s) Supporting Document(s) Glucose [Mass/volume] in Serum or Plasma --1 hour post XXX c hallenge 106 mg/dL Normal (applies to non-numeric results) [facility] ID Date Data Source [id number] 05/04/2021 11:17:00 AM EDT [facility] ([facility]) Name Value Range Interpretation Code Description Data Britany rce(s) Supporting Document(s) White Blood Count 9.7 10 4.0-10.0 Normal (applies to non-numeri c results) [facility] Red Blood Count 4.01 10 4.00-5.40 Normal (applies to non-numeric results) [facility] Hematocrit 38.5 % 36.0-47.0 Normal (applies to non-numeric resul ts) [facility] Hemoglobin 13.0 g/dL 12.0-15.5 Normal (applies to non-numeric resul ts) [facility] Mean Corpuscular Volume 96.0 fl 80.0-96.0 Normal ( applies to non-numeric results) [facility] ([facility]) Mean Corpuscular Hemoglobin 32.4 pg 27.0-33.0 Norm al (applies to non-numeric results) [facility] ([facility]) Red Cell Distribution Width 13.0 % 11.5-14.5 Norm al (applies to non-numeric results) [facility] ([facility]) Mean Corpuscular HGB Conc 33.8 g/dL 32.0-36.5 Normal (applies to non-numeric results) [facility] ([facility]) Platelet Count, Automated 320 10 150-450 Normal (applies to non-numeric results) [facility] ([facility]) Nucleated Red Blood Cell % 0.0 % 0-0 Normal (applies to n on-numeric results) [facility] ([facility]) ID Date Data Source RHOGAM 05/04/2021 12:00:00 AM EDT [facility] ([facility]) Name Value Range Interpretation Code Description Data Britany rce(s) Supporting Document(s) TRANSFUSED PRODUCT: RHOGAM CO UNT: 1 RHOGAM eC ([facility]) ID Date Data Source Type and Screen (D Rh Antibody Screen) 05/04/2021 12:00:00 A M EDT eCW1 ([facility]) Name Value Range Interpretation Code Description Data Britany rce(s) Supporting Document(s) O NEGATIVE BLOOD TYPE eCW1 ([facility]) NEGATIVE AB SCREEN (INDIRECT COOMB S)VIS eCW1 ([facility]) ID Date Data Source Glucose Challenge Test 1 Hour 05/04/2021 12:00:00 AM EDT eCW 1 ([facility]) Name Value Range Interpretation Code Description Data Britany rce(s) Supporting Document(s) 106 LESS THAN 140 GLUCOSE CHALLENGE TEST 1 HOUR eCW1 ([facility]) ID Date Data Source CBC - Complete Blood Count 05/04/2021 12:00:00 AM EDT eCW1 ( [facility]) Name Value Range Interpretation Code Description Data Britany rce(s) Supporting Document(s) 9.7 4.0-10.0 WHITE BLOOD COUNT eCW1 ([facility]) 4.01 4.00-5.40 RED BLOOD COUNT eCW1 ([facility]) 13.0 12.0-15.5 HEMOGLOBIN eCW1 ([facility]) 32.4 27.0-33.0 MEAN CORPUSCULAR HEMOGLOB IN eCW1 ([facility]) 96.0 80.0-96.0 MEAN CORPUSCULAR VOLUME e CW1 ([facility]) 33.8 32.0-36.5 MEAN CORPUSCULAR HGB CONC eCW1 ([facility]) 38.5 36.0-47.0 HEMATOCRIT eCW1 ([facility]) 320 150-450 PLATELET COUNT, AUTOMATED eCW1 ([facility]) 13.0 11.5-14.5 RED CELL DISTRIBUTION WID TH eCW1 ([facility]) ID Date Data Source [id number] 04/27/2021 10:40:00 AM EDT [facility] ([facility]) Name Value Range Interpretation Code Description Data Britany rce(s) Supporting Document(s) PDF Laboratory [facility] result [facility] {DIAGNOSIS: F41.9 F32.89 F43.10~{MEDICA TIONS/DECLARED: LATUDA~{PRESCRIPTION INFO:~{PRESCRIPTION Laboratory test finding (navigational concept) Laboratory test result MEDENT ([facility]) {DIAGNOSIS: F41.9 F32.89 F43.10~{MEDICA TIONS/DECLARED: LATUDA~{PRESCRIPTION INFO:~{PRESCRIPTION ID Date Data Source [id number] 05/03/2021 06:08:00 AM EDT [facility] Name Value Range Interpretation Code Description Data Britany rce(s) Supporting Document(s) Drugs identified in Urine FINAL [facility] TOXASSURE SELECT 13 (MW) Test [...] clinical consultation, please call . Report . [facility] ID Date Data Source HBSAG 02/04/2021 12:00:00 AM EDT eCW1 ([facility]) Name Value Range Interpretation Code Description Data Britany rce(s) Supporting Document(s) NEGATIVE NEGATIVE HBsAg eCW1 ([facility]) ID Date Data Source HEPATITIS C ANTIBODY INDEX 02/04/2021 12:00:00 AM EDT eCW1 ( [facility]) Name Value Range Interpretation Code Description Data Britany rce(s) Supporting Document(s) 0.1 <0.8 HEPATITIS C VIRUS KEL INDEX eC W1 ([facility]) ID Date Data Source URINE CULTURE 02/04/2021 12:00:00 AM EDT eCW1 ([facility]) Name Value Range Interpretation Code Description Data Britany rce(s) Supporting Document(s) URINE CULTURE eCW1 ([facility]) ID Date Data Source RUBELLA IMMUNE STATUS IgG 02/04/2021 12:00:00 AM EDT eCW1 ([facility]) Name Value Range Interpretation Code Description Data Britany rce(s) Supporting Document(s) IMMUNE IMMUNE RUBELLA IgG QUALITATIVE eCW1 ( [facility]) ID Date Data Source SYPHILIS ANTIBODY (RPR SCREEN) 02/04/2021 12:00:00 AM EDT eC W1 ([facility]) Name Value Range Interpretation Code Description Data Britany rce(s) Supporting Document(s) NONREACTIVE NONREACTIVE SYPHILIS eCW1 ([facility]) ID Date Data Source [id number] 02/04/2021 12:00:00 AM EDT eCW1 ([facility]) Name Value Range Interpretation Code Description Data Britany rce(s) Supporting Document(s) HIV 1&2 ANTIBODY SCREEN eCW1 ( [facility]) ID Date Data Source CHLAMYDIA & GC DNA AMPLIFICAT 02/04/2021 12:00:00 AM EDT eCW 1 ([facility]) Name Value Range Interpretation Code Description Data Britany rce(s) Supporting Document(s) Chlamydia trachomatis rRNA [Presence] in Unspecified specimen by Probe and target amplification method NEGATIVE NEGATIVE CHLAMYDIA DNA AMPLIFICATION eCW1 ([facility]) ID Date Data Source Type and Screen Prenatal1 02/04/2021 12:00:00 AM EDT eCW1 ([facility]) Name Value Range Interpretation Code Description Data Britany rce(s) Supporting Document(s) NEGATIVE AB SCREEN PNP1 GEL (VIS) eCW1 ([facility]) Procedure Social History Code Duration Value Status Description Data Source(s ) Smoking 08/11/2021 12:00:00 AM EDT Former Smoker completed Former Smoker eCW1 ([facility]) Smoking 08/11/2021 12:00:00 AM EDT Former Smoker completed Former Smoker eCW1 ([facility]) Smoking 08/08/2021 12:00:00 AM EDT Former Smoker completed Former Smoker eCW1 ([facility]) Smoking 08/08/2021 12:00:00 AM EDT Former Smoker completed Former Smoker eCW1 ([facility]) Smoking 08/01/2021 12:00:00 AM EDT Former Smoker completed Former Smoker eCW1 ([facility]) Smoking 08/01/2021 12:00:00 AM EDT Former Smoker completed Former Smoker eCW1 ([facility]) Smoking 08/01/2021 12:00:00 AM EDT Former Smoker completed Former Smoker eCW1 ([facility]) Smoking 07/26/2021 12:00:00 AM EDT Former Smoker completed Former Smoker eCW1 ([facility]) Smoking 07/26/2021 12:00:00 AM EDT Former Smoker completed Former Smoker eCW1 ([facility]) Smoking 07/26/2021 12:00:00 AM EDT Former Smoker completed Former Smoker eCW1 ([facility]) Smoking 07/07/2021 12:00:00 AM EDT Former Smoker completed Former Smoker eCW1 ([facility]) Smoking 06/13/2021 12:00:00 AM EDT Former Smoker completed Former Smoker eCW1 ([facility]) Smoking 05/30/2021 12:00:00 AM EDT Former Smoker completed Former Smoker eCW1 ([facility]) Smoking 05/02/2021 12:00:00 AM EDT Former Smoker completed Former Smoker eCW1 ([facility]) Smoking 03/29/2021 12:00:00 AM EDT Former Smoker completed Former Smoker eCW1 ([facility]) Smoking 03/04/2021 12:00:00 AM EDT Former Smoker completed Former Smoker eCW1 ([facility]) Smoking 02/04/2021 12:00:00 AM EDT Former Smoker completed Former Smoker eCW1 ([facility]) Smoking 02/04/2021 12:00:00 AM EDT Former Smoker completed Former Smoker eCW1 ([facility]) Vital Signs ID Date Data Source UNK Name Value Range Interpretation Code Description Data Source(s) Body temperature 98.6 [degF] 98.6 [degF] MEDENT ([facility]) Oxygen saturation in Arterial blood by Pulse oximetry 96 % 96 % MEDENT ([facility]) Heart rate 86 /min 86 /min MEDENT ([facility]) Body weight 268.4 [lb_av] 268.4 [lb_av] W1 ([facility]) Body weight 121.74 kg 121.74 kg [facility] ([facility]) Body height 68 [in_i] 68 [in_i] [facility] ([facility]) Body mass index (BMI) [Ratio] 40.81 kg/m2 40.81 kg/m2 [facility] ([facility]) Systolic blood pressure 122 mm[Hg] 122 mm[Hg] e CW1 ([facility]) Diastolic blood pressure 76 mm[Hg] 76 mm[Hg] eCW1 ([facility]) Body weight 267.2 [lb_av] 267.2 [lb_av] eCW1 ([facility]) Body height 68 [in_i] 68 [in_i] eCW1 ([facility]) Body mass index (BMI) [Ratio] 40.628 kg/m2 40.6 28 kg/m2 eCW1 ([facility]) Systolic blood pressure 122 mm[Hg] 122 mm[Hg] e CW1 ([facility]) Diastolic blood pressure 78 mm[Hg] 78 mm[Hg] eCW1 ([facility]) Body weight 267 [lb_av] 267 [lb_av] eCW1 ([facility]) Body weight 121.11 kg 121.11 kg eCW1 ([facility]) Body height 68 [in_i] 68 [in_i] eCW1 ([facility]) Body mass index (BMI) [Ratio] 40.597 kg/m2 40.5 97 kg/m2 eCW1 ([facility]) Systolic blood pressure 118 mm[Hg] 118 mm[Hg] e CW1 ([facility]) Diastolic blood pressure 74 mm[Hg] 74 mm[Hg] eCW1 ([facility]) Body weight 263 [lb_av] 263 [lb_av] eCW1 ([facility]) Body height 68 [in_i] 68 [in_i] eCW1 ([facility]) Body mass index (BMI) [Ratio] 39.989 kg/m2 39.9 89 kg/m2 eCW1 ([facility]) Systolic blood pressure 110 mm[Hg] 110 mm[Hg] e CW1 ([facility]) Diastolic blood pressure 60 mm[Hg] 60 mm[Hg] eCW1 ([facility]) Body weight 261 [lb_av] 261 [lb_av] eCW1 ([facility]) Body weight 118.39 kg 118.39 kg eCW1 ([facility]) Body height 68 [in_i] 68 [in_i] eCW1 ([facility]) Body mass index (BMI) [Ratio] 39.685 kg/m2 39.6 85 kg/m2 eCW1 ([facility]) Systolic blood pressure 116 mm[Hg] 116 mm[Hg] e CW1 ([facility]) Diastolic blood pressure 78 mm[Hg] 78 mm[Hg] eCW1 ([facility]) Body weight 257.6 [lb_av] 257.6 [lb_av] eCW1 ([facility]) Body weight 116.85 kg 116.85 kg eCW1 ([facility]) Body height 68 [in_i] 68 [in_i] eCW1 ([facility]) Body mass index (BMI) [Ratio] 39.168 kg/m2 39.1 68 kg/m2 eCW1 ([facility]) Systolic blood pressure 114 mm[Hg] 114 mm[Hg] e CW1 ([facility]) Diastolic blood pressure 74 mm[Hg] 74 mm[Hg] eCW1 ([facility]) Body weight 252 [lb_av] 252 [lb_av] eCW1 ([facility]) Body weight 114.31 kg 114.31 kg eCW1 ([facility]) Body height 68 [in_i] 68 [in_i] eCW1 ([facility]) Body mass index (BMI) [Ratio] 38.316 kg/m2 38.3 16 kg/m2 eCW1 ([facility]) Systolic blood pressure 118 mm[Hg] 118 mm[Hg] e CW1 ([facility]) Diastolic blood pressure 74 mm[Hg] 74 mm[Hg] eCW1 ([facility]) Body weight 241.6 [lb_av] 241.6 [lb_av] eCW1 ([facility]) Body height 68 [in_i] 68 [in_i] eCW1 ([facility]) Body mass index (BMI) [Ratio] 36.735 kg/m2 36.7 35 kg/m2 eCW1 ([facility]) Systolic blood pressure 124 mm[Hg] 124 mm[Hg] e CW1 ([facility]) Diastolic blood pressure 72 mm[Hg] 72 mm[Hg] eCW1 ([facility]) Respiratory rate 16 /min 16 /min MEDENT ( [facility]) Body weight 242.50 [lb_av] 242.50 [lb_av] MEDEN T ([facility]) Body height 68 [in_i] 68 [in_i] MEDENT ([facility]) 5'8" Systolic blood pressure--sitting 110 mm[Hg] 110 mm[Hg] [facility] ([facility]) Diastolic blood pressure--sitting 69 mm[Hg] 69 mm[Hg] [facility] Heart rate 84 /min 84 /min [facility] ([facility]) Body temperature 97.7 [degF] 97.7 [degF] [facility] ([facility]) Oral Body surface area Derived from formula 2.22 m2 2.22 m2 [facility] ([facility]) Body mass index (BMI) [Ratio] 36.9 kg/m2 36.9 k g/m2 [facility] ([facility]) Oxygen saturation in Arterial blood by Pulse oximetry 100 % 100 % [facility] ([facility]) Body weight 109.998 kg 109.998 kg [facility] ([facility]) Body weight 237.6 [lb_av] 237.6 [lb_av] eCW1 ([facility]) Body height 68 [in_i] 68 [in_i] W1 ([facility]) Body mass index (BMI) [Ratio] 36.127 kg/m2 36.1 27 kg/m2 W1 ([facility]) Systolic blood pressure 112 mm[Hg] 112 mm[Hg] e CW1 ([facility]) Diastolic blood pressure 68 mm[Hg] 68 mm[Hg] eCW1 ([facility]) Body weight 232.6 [lb_av] 232.6 [lb_av] eCW1 ([facility]) Body height 68 [in_i] 68 [in_i] eCW1 ([facility]) Body mass index (BMI) [Ratio] 35.367 kg/m2 35.3 67 kg/m2 eCW1 ([facility]) Systolic blood pressure 120 mm[Hg] 120 mm[Hg] e CW1 ([facility]) Diastolic blood pressure 70 mm[Hg] 70 mm[Hg] eCW1 ([facility]) Body weight 229 [lb_av] 229 [lb_av] eCW1 ([facility]) Body weight 103.87 kg 103.87 kg W1 ([facility]) Body height 68 [in_i] 68 [in_i] eCW1 ([facility]) Body mass index (BMI) [Ratio] 34.819 kg/m2 34.8 19 kg/m2 eCW1 ([facility]) Systolic blood pressure 126 mm[Hg] 126 mm[Hg] e CW1 ([facility]) Diastolic blood pressure 82 mm[Hg] 82 mm[Hg] eCW1 ([facility]) Body height 68 [in_i] 68 [in_i] [facility] ([facility]) 5'8" Systolic blood pressure 110 mm[Hg] 110 mm[Hg] M EDENT ([facility]) Diastolic blood pressure 72 mm[Hg] 72 mm[Hg] [facility] ([facility]) Heart rate 86 /min 86 /min [facility] ([facility]) Body temperature 97.7 [degF] 97.7 [degF] [facility] Respiratory rate 16 /min 16 /min [facility] ( [facility]) Oxygen saturation in Arterial blood by Pulse oximetry 98 % 98 % [facility] ([facility]) Body weight 229.25 [lb_av] 229.25 [lb_av] MEDEN T ([facility]) Body weight 103.988 kg 103.988 kg [facility] Body mass index (BMI) [Ratio] 34.9 kg/m2 34.9 k g/m2 [facility] ([facility]) Body surface area Derived from formula 2.17 m2 2.17 m2 [facility] ([facility]) Patient Treatment Plan of Care Planned Activity Planned Date Details Description Data Source (s) Lurasidone Hydrochloride 20 MG Oral Tablet [Latuda] 02/05/20 12:00:00 AM EDT eCW1 ([facility])
--- OUTSIDE RECORDS SUMMARY | 2021-09-22 06:09 | CCD ---
Author Author [facility] Organization [facility] Address Unknown Phone Unavailable Care Team Providers Care Insurance Billing Specialist Name Role Phone SANTOS MAURICIO Unavailable Unavailable [...] J CHEVY PA Unavailable Unavailable GUILLORY, J CEHVY PA Unavailable Unavailable GUILLORY, J CHEVY PA [...] is protected by Article 27-F of the [facility] Public Health law. If you continue you may have access to information: Regarding HIV / AIDS; Provided by facilities licensed or operated by the [facility] Office of Mental Health; or Provided by the [facility] Office for People With Developmental Disabilities. If such information is present, then the following [facility] mandated warning applies: This information has been [...] law may result in a fine or senior living sentence or both. A general authorization for the release of medical or other information is NOT sufficient authorization for further disc losure. Encounters Encounter Providers Location Date Indications Data Source(s ) Outpatient Attender: MAURICIO Talleyer: Alphonse albrecht MD 09/19/2021 10:55:00 AM EST - 09/19/2021 10:55:[address] [facility] Outpatient Attender: MAURICIO Sruesh: Alphonse albrecht MD 09/01/2021 01:16:00 PM [facility] - 09/01/2021 01:16:[address] [facility] Outpatient Attender: CHEVY Juan: Alphonse kearns MD 09/01/2021 01:01:00 PM [facility] - 09/01/2021 01:01:[address] [facility] Outpatient Attender: CHEVY GUILLORY [facility] 09/01 12:00:00 PM EST [facility] Unknown [address] [facility] [address] 08/15/2021 12:00:00 AM EDT eCW1 ([facility]) ([facility]) [facility] Nurse Visit [address] [place] [address] 08/15/2021 12:00:00 AM EDT eCW1 ([facility]) Unknown [address] [facility] [address] 08/10/2021 12:00:00 AM EDT eCW1 ([facility]) Outpatient Attender: MAURICIO Talleyer: Alphonse albrecht MD 08/09/2021 10:11:00 AM EDT - 08/09/2021 10:11:00 AM EDT [facility] Unknown [address] [facility] [address] 08/09/2021 12:00:00 AM EDT eCW1 ([facility]) [place] [address] [facility] [address] 08/04/2021 12:00:00 AM EDT eCW1 ([facility]) Outpatient Attender: JOSE MARIA CALLEJAS 03:27:00 PM EDT - 08/03/2021 03:27:00 PM EDT [facility] Unknown [address] [facility] [address] 08/03/2021 12:00:00 AM EDT eCW1 ([facility]) ( ESTOB) [facility]Center Est OB [address] [place] [address] 08/02/2021 12:00:00 AM EDT eCW1 ([facility]) (WC ESTOB) [facility] Est OB [address] [place] [address] 07/26/2021 12:00:00 AM EDT eCW1 ([facility]) (WC ESTOB) [facility] Est OB [address] [place] [address] 07/20/2021 12:00:00 AM EDT eCW1 ([facility]) (WC ESTOB) [facility] Est OB [address] [place] [address] 07/15/2021 12:00:00 AM EDT eCW1 ([facility]) (WC ESTOB) [facility]Center Est OB [address] [place] [address] 07/06/2021 12:00:00 AM EDT eCW1 ([facility]) Outpatient Attender: MAURICIO GRAHAMReferrer: Alphonse albrecht MD 06/29/2021 08:51:00 AM EDT - 06/29/2021 08:51:00 AM EDT [facility] ( ESTOB) enter Est OB [address] [place] [address] 06/21/2021 12:00:00 AM EDT eCW1 ([facility]) Outpatient Attender: MAURICIO GRAHAM 06/08/20 10:15:00 AM EDT - 06/08/2021 10:15:00 AM EDT [facility] Outpatient Attender: CHEVY Albertoer: Alphonse kearns MD 06/02/2021 12:06:00 PM EDT - 06/02/2021 12:06:00 PM EDT [facility] ([facility]) [facility] Est OB [address] [place] [address] 06/01/2021 12:00:00 AM EDT eCW1 ([facility]) Outpatient Attender: MAURICIO GRAHAMReferrer: Alphonse albrecht MD 05/24/2021 02:58:00 PM EDT - 05/24/2021 02:58:00 PM EDT [facility] ([facility]) [facility] Est OB [address] [place] [address] 05/04/2021 12:00:00 AM EDT eCW1 ([facility]) Outpatient Attender: MAURICIO GRAHAMReferrer: Alphonse albrecht MD 05/02/2021 01:51:00 PM EDT - 05/02/2021 01:51:00 PM EDT [facility] Outpatient Attender: Alphonse Ramon MDAttender: CHEVY CALLEJAS 04/27/2021 09:54:00 AM EDT - 04/27/2021 09:54:00 AM EDT [facility] Outpatient Attender: MAURICIO GRAHAM 04/04/20 08:02:00 AM EDT - 04/04/2021 08:02:00 AM EDT [facility] ([facility]) [facility] Est OB [address] [place] [address] 04/01/2021 12:00:00 AM EDT eCW1 ([facility]) Outpatient Attender: MAURICIO GRAHAM 03/14/20 09:03:00 AM EDT - 03/14/2021 09:03:00 AM EDT [facility] ( ESTOB) enter Est OB [address] [place] [address] 03/04/2021 12:00:00 AM EDT eCW1 ([facility]) [place] [address] [facility] [address] 02/28/2021 12:00:00 AM EDT eCW1 ([facility]) ( 1PN) WCenter 1st [address] [place] [address] 02/04/2021 12:00:00 AM EDT eCW1 ([facility]) Outpatient Attender: Chloe Santana MD 0 01/14/2021 10:33:00 AM EDT - 01/14/2021 10:33:00 AM EDT [facility] Immunizations Vaccine Date Status Description Data Source(s) Tdap 06/21/2021 09:31:00 AM EDT completed e CW1 ([facility]) Tdap 06/21/2021 09:31:00 AM EDT completed e CW1 ([facility]) Tdap 06/21/2021 09:31:00 AM EDT completed e CW1 ([facility]) Tdap 06/21/2021 09:31:00 AM EDT completed e CW1 ([facility]) Tdap 06/21/2021 09:31:00 AM EDT completed e CW1 ([facility]) Tdap 06/21/2021 09:31:00 AM EDT completed e CW1 ([facility]) Tdap 06/21/2021 09:31:00 AM EDT completed e CW1 ([facility]) Tdap 06/21/2021 09:31:00 AM EDT completed e CW1 ([facility]) Tdap 06/21/2021 09:31:00 AM EDT completed e CW1 ([facility]) Tdap 06/21/2021 09:31:00 AM EDT completed e CW1 ([facility]) Tdap 06/21/2021 09:31:00 AM EDT completed e CW1 ([facility]) Tdap 06/21/2021 09:31:00 AM EDT completed e CW1 ([facility]) 06/01/2021 10:36:00 AM EDT completed e CW1 ([facility]) 06/01/2021 10:36:00 AM EDT completed e CW1 ([facility]) 06/01/2021 10:36:00 AM EDT completed e CW1 ([facility]) 06/01/2021 10:36:00 AM EDT completed e CW1 ([facility]) 06/01/2021 10:36:00 AM EDT completed e CW1 ([facility]) 06/01/2021 10:36:00 AM EDT completed e CW1 ([facility]) 06/01/2021 10:36:00 AM EDT completed e CW1 ([facility]) 06/01/2021 10:36:00 AM EDT completed e CW1 ([facility]) 06/01/2021 10:36:00 AM EDT completed e CW1 ([facility]) 06/01/2021 10:36:00 AM EDT completed e CW1 ([facility]) 06/01/2021 10:36:00 AM EDT completed e CW1 ([facility]) 06/01/2021 10:36:00 AM EDT completed e CW1 ([facility]) 06/01/2021 10:36:00 AM EDT completed e CW1 ([facility]) Medications Medication Brand Name Start Date Product Form Dose Route Admi nistrative Instructions Pharmacy Instructions Status Indications Reaction Description Data Source(s) Lurasidone Hydrochloride 20 MG Oral Tablet [Latuda] Latuda 04/01/2021 12:00:00 AM EDT ORAL active [facility] ([facility]) Lurasidone Hydrochloride 20 MG Oral Tablet [Latuda] Latuda 2 0 MG Latuda 20 MG 02/04/2021 12:00:00 AM EDT 1.0 {tablet_with_food} active Latuda 20 MG eCW1 ([facility]) Lurasidone Hydrochloride 20 MG Oral Tablet [Latuda] Latuda 2 0 MG Latuda 20 MG 02/04/2021 12:00:00 AM EDT 2.0 {tablets_with_food} active Latuda 20 MG eCW1 ([facility]) Lurasidone Hydrochloride 20 MG Oral Tablet [Latuda] Latuda 2 0 MG Latuda 20 MG 02/04/2021 12:00:00 AM EDT 1.0 {tablet_with_food} active Latuda 20 MG eCW1 ([facility]) Lurasidone Hydrochloride 20 MG Oral Tablet [Latuda] Latuda 2 0 MG Latuda 20 MG 02/04/2021 12:00:00 AM EDT 1.0 {tablet_with_food} active Latuda 20 MG eCW1 ([facility]) Lurasidone Hydrochloride 20 MG Oral Tablet [Latuda] Latuda 2 0 MG Latuda 20 MG 02/04/2021 12:00:00 AM EDT 1.0 {tablet_with_food} active Latuda 20 MG eCW1 ([facility]) Lurasidone Hydrochloride 20 MG Oral Tablet [Latuda] Latuda 2 0 MG Latuda 20 MG 02/04/2021 12:00:00 AM EDT 1.0 {tablet_with_food} active Latuda 20 MG eCW1 ([facility]) Lurasidone Hydrochloride 20 MG Oral Tablet [Latuda] Latuda 2 0 MG Latuda 20 MG 02/04/2021 12:00:00 AM EDT 1.0 {tablet_with_food} active Latuda 20 MG eCW1 ([facility]) Lurasidone Hydrochloride 20 MG Oral Tablet [Latuda] Latuda 2 0 MG Latuda 20 MG 02/04/2021 12:00:00 AM EDT 2.0 {tablets_with_food} active Latuda 20 MG eCW1 ([facility]) Lurasidone Hydrochloride 20 MG Oral Tablet [Latuda] Latuda 2 0 MG Latuda 20 MG 02/04/2021 12:00:00 AM EDT 1.0 {tablet_with_food} active Latuda 20 MG eCW1 ([facility]) Lurasidone Hydrochloride 20 MG Oral Tablet [Latuda] Latuda 2 0 MG Latuda 20 MG 02/04/2021 12:00:00 AM EDT 1.0 {tablet_with_food} active Latuda 20 MG eCW1 ([facility]) Lurasidone Hydrochloride 20 MG Oral Tablet [Latuda] Latuda 2 0 MG Latuda 20 MG 02/04/2021 12:00:00 AM EDT 2.0 {tablets_with_food} active Latuda 20 MG eCW1 ([facility]) Lurasidone Hydrochloride 20 MG Oral Tablet [Latuda] Latuda 2 0 MG Latuda 20 MG 02/04/2021 12:00:00 AM EDT 1.0 {tablet_with_food} active Latuda 20 MG eCW1 ([facility]) Lurasidone Hydrochloride 20 MG Oral Tablet [Latuda] Latuda 2 0 MG Latuda 20 MG 02/04/2021 12:00:00 AM EDT 1.0 {tablet_with_food} active Latuda 20 MG eCW1 ([facility]) Lurasidone Hydrochloride 20 MG Oral Tablet [Latuda] Latuda 2 0 MG Latuda 20 MG 02/04/2021 12:00:00 AM EDT 1.0 {tablet_with_food} active Latuda 20 MG eCW1 ([facility]) Lurasidone Hydrochloride 20 MG Oral Tablet [Latuda] Latuda 2 0 MG Latuda 20 MG 02/04/2021 12:00:00 AM EDT 1.0 {tablet_with_food} active Latuda 20 MG eCW1 ([facility]) Lurasidone Hydrochloride 20 MG Oral Tablet [Latuda] Latuda 2 0 MG Latuda 20 MG 02/04/2021 12:00:00 AM EDT 1.0 {tablet_with_food} active Latuda 20 MG eCW1 ([facility]) Lurasidone Hydrochloride 20 MG Oral Tablet [Latuda] Latuda 2 0 MG Latuda 20 MG 02/04/2021 12:00:00 AM EDT 1.0 {tablet_with_food} active Latuda 20 MG eCW1 ([facility]) Lurasidone Hydrochloride 20 MG Oral Tablet [Latuda] Latuda 2 0 MG Latuda 20 MG 02/04/2021 12:00:00 AM EDT 1.0 {tablet_with_food} active Latuda 20 MG eCW1 ([facility]) Insurance Providers Payer name Policy type / Coverage type Policy ID Covered constitution party ID Covered constitution party's relationship to Policy Plan Information [facility] [id number] SP [id number] [facility] [id number] SP [id number] [facility] [place] [id number] 18 [id number] [facility] [place] [id number] [employer] [facility] [place] [id number] 18 [id number] Problems, Conditions, and Diagnoses Code Display Name Description Problem Type Effective Dates Data Source(s) F609 Personality disorder, unspecified Personality di sorder, unspecified Diagnosis 09/01/2021 01:16:[address] [facility] F419 Anxiety disorder, unspecified Anxiety disorder, unspec ified Diagnosis 09/01/2021 01:16:[address] [facility] F3289 Other specified depressive episodes Other specif ied depressive episodes Diagnosis 09/01/2021 01:16:[address] [facility] F4310 Post-traumatic stress disorder, unspecif ied Post-traumatic stress disorder, unspecified Diagnosis 08/09/2021 10:11:00 AM EDT [facility] Z1152 ENCOUNTER FOR SCREENING FOR COVID-19 ENCOUNTER F OR SCREENING FOR COVID-19 Diagnosis [facility]/03[facility] Personal history of nicotine dependence Personal history of nicotine dependence Diagnosis 01/14/2021 10:33:00 AM T [facility] G478 Other sleep disorders Other sleep disorders Diagnosis 01/14/2021 10:33:00 AM [facility] Z3A10 10 weeks gestation of 10 weeks gestation of Diagnosis 01/14/2021 10:33:00 AM [facility] S17889 Other mental disorders complicating preg jero, first trimester Other mental disorders complicating , first trimester Diagnosis 01/14/2021 10:33:00 AM [facility] E66.9 Obesity Obesity, unspecified Problem 07/27/2021 12:0 0:00 AM EDT eCW1 ([facility]) O99.213 Maternal obesity complicatin g , childbirth and the puerperium, antepartum Obesity complicating , third trimester Problem 07/21/2021 12:00:00 AM EDT eCW1 ([facility]) F41.8 Anxiety depression Anxiety with depression Problem 07/21/2021 12:00:00 AM EDT eCW1 ([facility]) O99.213 Obesity complicating , third tr imester Obesity complicating in third trimester Problem 06/21/2021 12:00:00 AM EDT eCW1 ([facility]) O36.0130 Maternal care for anti-D [Rh ] antibodies, third trimester, not applicable or unspecified Maternal care for anti-D [Rh] antibodies , third trimester, not applicable or unspecified Problem 06/02/2021 12:00:00 AM EDT eCW1 ([facility]) Z68.35 [id number] BMI 35.0-35.9,adult Problem 03/04/2021 12:00 :00 AM EDT eCW1 ([facility]) F43.10 [id number] PTSD (post-traumatic stress disorder) Pro blem 03/03/2021 12:00:00 AM EDT eCW1 ([facility]) F41.8 [id number] Depression with anxiety Problem 03/03/2021 1 2:00:00 AM EDT eCW1 ([facility]) O99.212 [id number] Obesity affecting in second tri mester Problem 03/03/2021 12:00:00 AM EDT eCW1 ([facility]) Z68.34 [id number] BMI 34.0-34.9,adult Problem 02/04/2021 12:00 :00 AM EDT eCW1 ([facility]) O99.211 [id number] Obesity complicating in first t rimester Problem 02/04/2021 12:00:00 AM EDT eCW1 ([facility]) E66.09 [id number] Other obesity due to excess calories Prob rossy 02/04/2021 12:00:00 AM EDT eCW1 ([facility]) Z34.80 care Supervision of other normal P prakashm 02/01/2021 12:00:00 AM EDT eCW1 ([facility]) F41.9 Anxiety state Anxiety state Problem 01/14/2021 12:00:00 AM EDT [facility] ([facility]) F32.89 Depressive disorder Depressive disorder Problem 0 01/14/2021 12:00:00 AM EDT [facility] ([facility]) M26.603 Bilateral temporomandibular joint disord er Bilateral temporomandibular joint disorder Problem 01/14/2021 12:00:00 AM EDT [facility] ([facility]) Surgeries/Procedures Procedure Description Date Indications Data Source(s) OFFICE OUTPATIENT VISIT 25 MINUTES 09/01/2021 12:00:00 AM EST [facility] ([facility]) Nurse Visit Blood Pressure Check 08/15/2021 12:00:00 A M EDT eCW1 ([facility]) TDAP VACCINE 7/> YR IM 06/21/2021 12:00:00 AM EDT eCW1 ([facility]) Psychiatric Diag Eval W/Medical Service 06/02/2021 12: 00:00 AM EDT [facility] ([facility]) Inj: RhoGAM 300mcg/1.5mL IM Rho D Immune Globulin Human 06/01/2021 12:00:00 AM EDT eCW1 ([facility]) NONSTRESS TEST 06/01/2021 12:00:00 AM EDT eCW1 ([facility]) PREVENT MED ARMATURE BALANCER&/RISK FACTOR REDJ SPX 45 MIN 04/27 12:00:00 AM EDT [facility] ([facility]) Psychiatric Diagnostic Evaluation 03/14/2021 12:00:00 AM EDT [facility] ([facility]) Brief Emotional/Behav Assessment W/ Scoring Doc Per Standard Inst 01/14/2021 12:00:00 AM EDT [facility] ([facility]) Admin Patient Focused Health Risk Assessment Instrument 01/14/2021 12:00:00 AM EDT [facility] ([facility]) OFFICE OUTPATIENT NEW 30 MINUTES 01/14/2021 12:00:00 A M EDT [facility] ([facility]) Results ID Date Data Source [id number] 08/10/2021 08:02:00 PM EDT [facility] Name Value Range Interpretation Code Description Data Britany rce(s) Supporting Document(s) SARS coronavirus 2 RNA [Presence] in Res piratory specimen by DANIELE with probe detection NEGATIVE [facility] This lab was ordered by [facility] a nd reported by [facility]. ID Date Data Source [id number] 08/03/2021 03:49:00 PM EDT [facility] ([facility]) Name Value Range Interpretation Code Description Data Britany rce(s) Supporting Document(s) Covid-19 Laboratory test result [facility] ([facility]) ID Date Data Source [id number] 08/03/2021 03:32:00 PM EDT [facility] Name Value Range Interpretation Code Description Data Britany rce(s) Supporting Document(s) SARS coronavirus 2 RNA [facility]ed [facility] was ordered by [facility] Tomy noyola and reported by [facility]. ID Date Data Source [id number] 08/05/2021 02:34:00 PM EDT [facility] Name Value Range Interpretation Code Description Data Britany rce(s) Supporting Document(s) SARS-CoV-2, DANIELE Not Detected Not Detected [facility] This nucleic acid amplification test was developed and its performancecharacteristics determined by [facility]. Nucleic acidamplification tests include RT-PCR and [...] assay. SARS-CoV-2, DANIELE 2 DAY TAT Performed [facility] ID Date Data Source WWBC OBS FOLLOW UP OR REPEAT 08/03/2021 12:00:00 AM EDT eCW1 ([facility]) Name Value Range Interpretation Code Description Data Britany rce(s) Supporting Document(s) [facility]BC OBS FOLLOW UP OR REPEAT e CW1 ([facility]) ID Date Data Source GROUP B STREP CULTURE 07/15/2021 12:00:00 AM EDT eCW1 ([facility]) Name Value Range Interpretation Code Description Data Britany rce(s) Supporting Document(s) GROUP B STREP CULTURE eCW1 ([facility]) ID Date Data Source [id number] 05/04/2021 11:17:00 AM EDT [facility] ([facility]) Name Value Range Interpretation Code Description Data Britany rce(s) Supporting Document(s) Rh immune globulin screen [interpretation] Laboratory test result [facility] ([facility]) TRANSFUSED PRODUCT: RHOGAM COUNT: 1 ID Date Data Source [id number] 05/04/2021 11:17:00 AM EDT [facility] ([facility]) Name Value Range Interpretation Code Description Data Britany rce(s) Supporting Document(s) Blood Type Laboratory test result Normal (applies to non-n umeric results) [facility] ([facility]) AB Screen (Indirect Dougie)Vis Laboratory test result Normal (applies to non- numeric results) [facility] ([facility]) ID Date Data Source [id number] 05/04/2021 11:17:00 AM EDT [facility] ([facility]) Name Value Range Interpretation Code Description Data Britany rce(s) Supporting Document(s) Glucose [Mass/volume] in Serum or Plasma --1 hour post XXX c hallenge 106 mg/dL Normal (applies to non-numeric results) [facility] ([facility]) ID Date Data Source [id number] 05/04/2021 11:17:00 AM EDT [facility] ([facility]) Name Value Range Interpretation Code Description Data Britany rce(s) Supporting Document(s) White Blood Count 9.7 10 4.0-10.0 Normal (applies to non-numeri c results) [facility] ([facility]) Red Blood Count 4.01 10 4.00-5.40 Normal (applies to non-numeric results) [facility] ([facility]) Hematocrit 38.5 % 36.0-47.0 Normal (applies to non-numeric resul ts) [facility] ([facility]) Hemoglobin 13.0 g/dL 12.0-15.5 Normal (applies to non-numeric resul ts) [facility] ([facility]) Mean Corpuscular Volume 96.0 fl 80.0-96.0 Normal ( applies to non-numeric results) [facility] ([facility]) Mean Corpuscular Hemoglobin 32.4 pg 27.0-33.0 Norm al (applies to non-numeric results) [facility] ([facility]) Red Cell Distribution Width 13.0 % 11.5-14.5 Norm al (applies to non-numeric results) [facility] ([facility]) Mean Corpuscular HGB Conc 33.8 g/dL 32.0-36.5 Normal (applies to non-numeric results) [facility] ([facility]) Platelet Count, Automated 320 10 150-450 Normal (applies to non-numeric results) [facility] ([facility]) Nucleated Red Blood Cell % 0.0 % 0-0 Normal (applies to n on-numeric results) [facility] ([facility]) ID Date Data Source RHOGAM 05/04/2021 12:00:00 AM EDT [facility] ([facility]) Name Value Range Interpretation Code Description Data Britany rce(s) Supporting Document(s) TRANSFUSED PRODUCT: RHOGAM CO UNT: 1 RHOGAM eC ([facility]) ID Date Data Source Type and Screen (D Rh Antibody Screen) 05/04/2021 12:00:00 A M EDT eCW1 ([facility]) Name Value Range Interpretation Code Description Data Britany rce(s) Supporting Document(s) O NEGATIVE BLOOD TYPE eCW1 ([facility]) NEGATIVE AB SCREEN (INDIRECT COOMB S)VIS eCW1 ([facility]) ID Date Data Source Glucose Challenge Test 1 Hour 05/04/2021 12:00:00 AM EDT eCW 1 ([facility]) Name Value Range Interpretation Code Description Data Britany rce(s) Supporting Document(s) 106 LESS THAN 140 GLUCOSE CHALLENGE TEST 1 HOUR eCW1 ([facility]) ID Date Data Source CBC - Complete Blood Count 05/04/2021 12:00:00 AM EDT eCW1 ( [facility]) Name Value Range Interpretation Code Description Data Britany rce(s) Supporting Document(s) 9.7 4.0-10.0 WHITE BLOOD COUNT eCW1 ([facility]) 4.01 4.00-5.40 RED BLOOD COUNT eCW1 ([facility]) 13.0 12.0-15.5 HEMOGLOBIN eCW1 ([facility]) 32.4 27.0-33.0 MEAN CORPUSCULAR HEMOGLOB IN eCW1 ([facility]) 96.0 80.0-96.0 MEAN CORPUSCULAR VOLUME e CW1 ([facility]) 33.8 32.0-36.5 MEAN CORPUSCULAR HGB CONC eCW1 ([facility]) 38.5 36.0-47.0 HEMATOCRIT eCW1 ([facility]) 320 150-450 PLATELET COUNT, AUTOMATED eCW1 ([facility]) 13.0 11.5-14.5 RED CELL DISTRIBUTION WID TH eCW1 ([facility]) ID Date Data Source [id number] 04/27/2021 10:40:00 AM EDT [facility] ([facility]) Name Value Range Interpretation Code Description Data Britany rce(s) Supporting Document(s) PDF Laboratory test result [facility] ([facility]) {DIAGNOSIS: F41.9 F32.89 F43.10~{MEDICA TIONS/DECLARED: LATUDA~{PRESCRIPTION INFO:~{PRESCRIPTION Laboratory test finding (navigational concept) Laboratory test result [facility] ([facility]) {DIAGNOSIS: F41.9 F32.89 F43.10~{MEDICA TIONS/DECLARED: LATUDA~{PRESCRIPTION INFO:~{PRESCRIPTION ID Date Data Source [id number] 05/03/2021 06:08:00 AM EDT [facility] Name Value Range Interpretation Code Description Data Britany rce(s) Supporting Document(s) Drugs identified in Urine FINAL [facility] TOXASSURE SELECT 13 (MW) Test Result Flag [...] clinical consultation, please call . Report . [facility] ID Date Data Source HBSAG 02/04/2021 12:00:00 AM EDT eCW1 ([facility]) Name Value Range Interpretation Code Description Data Britany rce(s) Supporting Document(s) NEGATIVE NEGATIVE HBsAg eCW1 ([facility]) ID Date Data Source HEPATITIS C ANTIBODY INDEX 02/04/2021 12:00:00 AM EDT eCW1 ( [facility]) Name Value Range Interpretation Code Description Data Britany rce(s) Supporting Document(s) 0.1 <0.8 HEPATITIS C VIRUS KEL INDEX eC W1 ([facility]) ID Date Data Source URINE CULTURE 02/04/2021 12:00:00 AM EDT eCW1 ([facility]) Name Value Range Interpretation Code Description Data Britany rce(s) Supporting Document(s) URINE CULTURE eCW1 ([facility]) ID Date Data Source RUBELLA IMMUNE STATUS IgG 02/04/2021 12:00:00 AM EDT eCW1 (Formerly [facility]) Name Value Range Interpretation Code Description Data Britany rce(s) Supporting Document(s) IMMUNE IMMUNE RUBELLA IgG QUALITATIVE eCW1 ( [facility]) ID Date Data Source SYPHILIS ANTIBODY (RPR SCREEN) 02/04/2021 12:00:00 AM EDT eC W1 ([facility]) Name Value Range Interpretation Code Description Data Britany rce(s) Supporting Document(s) NONREACTIVE NONREACTIVE SYPHILIS eCW1 ([facility]) ID Date Data Source [id number] 02/04/2021 12:00:00 AM EDT eCW1 ([facility]) Name Value Range Interpretation Code Description Data Britany rce(s) Supporting Document(s) HIV 1&2 ANTIBODY SCREEN eCW1 ( [facility]) ID Date Data Source CHLAMYDIA & GC DNA AMPLIFICAT 02/04/2021 12:00:00 AM EDT eCW 1 ([facility]) Name Value Range Interpretation Code Description Data Britany rce(s) Supporting Document(s) Chlamydia trachomatis rRNA [Presence] in Unspecified specimen by Probe and target amplification method NEGATIVE NEGATIVE CHLAMYDIA DNA AMPLIFICATION eCW1 ([facility]) ID Date Data Source Type and Screen Prenatal1 02/04/2021 12:00:00 AM EDT eCW1 (Formerly [facility]) Name Value Range Interpretation Code Description Data Britany rce(s) Supporting Document(s) NEGATIVE AB SCREEN PNP1 GEL (VIS) eCW1 ([facility]) Procedure Social History Code Duration Value Status Description Data Source(s ) Smoking 08/11/2021 12:00:00 AM EDT Former Smoker completed Former Smoker eCW1 ([facility]) Smoking 08/11/2021 12:00:00 AM EDT Former Smoker completed Former Smoker eCW1 ([facility]) Smoking 08/08/2021 12:00:00 AM EDT Former Smoker completed Former Smoker eCW1 ([facility]) Smoking 08/08/2021 12:00:00 AM EDT Former Smoker completed Former Smoker eCW1 ([facility]) Smoking 08/01/2021 12:00:00 AM EDT Former Smoker completed Former Smoker eCW1 ([facility]) Smoking 08/01/2021 12:00:00 AM EDT Former Smoker completed Former Smoker eCW1 ([facility]) Smoking 08/01/2021 12:00:00 AM EDT Former Smoker completed Former Smoker eCW1 ([facility]) Smoking 07/26/2021 12:00:00 AM EDT Former Smoker completed Former Smoker eCW1 ([facility]) Smoking 07/26/2021 12:00:00 AM EDT Former Smoker completed Former Smoker eCW1 ([facility]) Smoking 07/26/2021 12:00:00 AM EDT Former Smoker completed Former Smoker eCW1 ([facility]) Smoking 07/07/2021 12:00:00 AM EDT Former Smoker completed Former Smoker eCW1 ([facility]) Smoking 06/13/2021 12:00:00 AM EDT Former Smoker completed Former Smoker eCW1 ([facility]) Smoking 05/30/2021 12:00:00 AM EDT Former Smoker completed Former Smoker eCW1 ([facility]) Smoking 05/02/2021 12:00:00 AM EDT Former Smoker completed Former Smoker eCW1 ([facility]) Smoking 03/29/2021 12:00:00 AM EDT Former Smoker completed Former Smoker eCW1 ([facility]) Smoking 03/04/2021 12:00:00 AM EDT Former Smoker completed Former Smoker eCW1 ([facility]) Smoking 02/04/2021 12:00:00 AM EDT Former Smoker completed Former Smoker eCW1 ([facility]) Smoking 02/04/2021 12:00:00 AM EDT Former Smoker completed Former Smoker eCW1 ([facility]) Vital Signs ID Date Data Source UNK Name Value Range Interpretation Code Description Data Source(s) Body temperature 98.6 [degF] 98.6 [degF] MEDENT ([facility]) Oxygen saturation in Arterial blood by Pulse oximetry 96 % 96 % MEDENT ([facility]) Heart rate 86 /min 86 /min MEDENT ([facility]) Body weight 268.4 [lb_av] 268.4 [lb_av] W1 ([facility]ly [facility]) Body weight 121.74 kg 121.74 kg [facility] ([facility]) Body height 68 [in_i] 68 [in_i] [facility] ([facility]) Body mass index (BMI) [Ratio] 40.81 kg/m2 40.81 kg/m2 [facility] ([facility]) Systolic blood pressure 122 mm[Hg] 122 mm[Hg] e CW1 ([facility]) Diastolic blood pressure 76 mm[Hg] 76 mm[Hg] eCW1 ([facility]) Body weight 267.2 [lb_av] 267.2 [lb_av] eCW1 ([facility]) Body height 68 [in_i] 68 [in_i] eCW1 ([facility]) Body mass index (BMI) [Ratio] 40.628 kg/m2 40.6 28 kg/m2 eCW1 ([facility]) Systolic blood pressure 122 mm[Hg] 122 mm[Hg] e CW1 ([facility]) Diastolic blood pressure 78 mm[Hg] 78 mm[Hg] eCW1 ([facility]) Body weight 267 [lb_av] 267 [lb_av] eCW1 ([facility]) Body weight 121.11 kg 121.11 kg eCW1 ([facility]) Body height 68 [in_i] 68 [in_i] eCW1 ([facility]) Body mass index (BMI) [Ratio] 40.597 kg/m2 40.5 97 kg/m2 eCW1 ([facility]) Systolic blood pressure 118 mm[Hg] 118 mm[Hg] e CW1 ([facility]) Diastolic blood pressure 74 mm[Hg] 74 mm[Hg] eCW1 ([facility]) Body weight 263 [lb_av] 263 [lb_av] eCW1 ([facility]) Body height 68 [in_i] 68 [in_i] eCW1 ([facility]) Body mass index (BMI) [Ratio] 39.989 kg/m2 39.9 89 kg/m2 eCW1 ([facility]) Systolic blood pressure 110 mm[Hg] 110 mm[Hg] e CW1 ([facility]) Diastolic blood pressure 60 mm[Hg] 60 mm[Hg] eCW1 ([facility]) Body weight 261 [lb_av] 261 [lb_av] eCW1 ([facility]) Body weight 118.39 kg 118.39 kg eCW1 ([facility]) Body height 68 [in_i] 68 [in_i] eCW1 ([facility]) Body mass index (BMI) [Ratio] 39.685 kg/m2 39.6 85 kg/m2 eCW1 ([facility]) Systolic blood pressure 116 mm[Hg] 116 mm[Hg] e CW1 ([facility]) Diastolic blood pressure 78 mm[Hg] 78 mm[Hg] eCW1 ([facility]) Body weight 257.6 [lb_av] 257.6 [lb_av] eCW1 ([facility]) Body weight 116.85 kg 116.85 kg eCW1 ([facility]) Body height 68 [in_i] 68 [in_i] eCW1 ([facility]) Body mass index (BMI) [Ratio] 39.168 kg/m2 39.1 68 kg/m2 eCW1 ([facility]) Systolic blood pressure 114 mm[Hg] 114 mm[Hg] e CW1 ([facility]) Diastolic blood pressure 74 mm[Hg] 74 mm[Hg] eCW1 ([facility]) Body weight 252 [lb_av] 252 [lb_av] eCW1 ([facility]) Body weight 114.31 kg 114.31 kg eCW1 ([facility]) Body height 68 [in_i] 68 [in_i] eCW1 ([facility]) Body mass index (BMI) [Ratio] 38.316 kg/m2 38.3 16 kg/m2 eCW1 ([facility]) Systolic blood pressure 118 mm[Hg] 118 mm[Hg] e CW1 ([facility]) Diastolic blood pressure 74 mm[Hg] 74 mm[Hg] eCW1 ([facility]) Body weight 241.6 [lb_av] 241.6 [lb_av] eCW1 ([facility]) Body height 68 [in_i] 68 [in_i] eCW1 ([facility]) Body mass index (BMI) [Ratio] 36.735 kg/m2 36.7 35 kg/m2 eCW1 ([facility]) Systolic blood pressure 124 mm[Hg] 124 mm[Hg] e CW1 ([facility]) Diastolic blood pressure 72 mm[Hg] 72 mm[Hg] eCW1 ([facility]) Respiratory rate 16 /min 16 /min MEDENT ( [facility]) Body weight 242.50 [lb_av] 242.50 [lb_av] MEDEN T ([facility]) Body height 68 [in_i] 68 [in_i] MEDENT ([facility]) 5'8" Diastolic blood pressure--sitting 69 mm[Hg] 69 mm[Hg] [facility] Heart rate 84 /min 84 /min [facility] Body temperature 97.7 [degF] 97.7 [degF] MEDENT ([facility]) Oral Systolic blood pressure--sitting 110 mm[Hg] 110 mm[Hg] [facility] Body surface area Derived from formula 2.22 m2 2.22 m2 [facility] ([facility]) Body mass index (BMI) [Ratio] 36.9 kg/m2 36.9 k g/m2 [facility] ([facility]) Oxygen saturation in Arterial blood by Pulse oximetry 100 % 100 % MEDENT ([facility]) Body weight 109.998 kg 109.998 kg [facility] ([facility]) Body weight 237.6 [lb_av] 237.6 [lb_av] eCW1 ([facility]) Body height 68 [in_i] 68 [in_i] W1 ([facility]) Body mass index (BMI) [Ratio] 36.127 kg/m2 36.1 27 kg/m2 W1 ([facility]) Systolic blood pressure 112 mm[Hg] 112 mm[Hg] e CW1 ([facility]) Diastolic blood pressure 68 mm[Hg] 68 mm[Hg] eCW1 ([facility]) Body weight 232.6 [lb_av] 232.6 [lb_av] eCW1 ([facility]) Body height 68 [in_i] 68 [in_i] eCW1 ([facility]) Body mass index (BMI) [Ratio] 35.367 kg/m2 35.3 67 kg/m2 eCW1 ([facility]) Systolic blood pressure 120 mm[Hg] 120 mm[Hg] e CW1 ([facility]) Diastolic blood pressure 70 mm[Hg] 70 mm[Hg] eCW1 ([facility]) Body weight 229 [lb_av] 229 [lb_av] eCW1 ([facility]) Body weight 103.87 kg 103.87 kg W1 ([facility]) Body height 68 [in_i] 68 [in_i] eCW1 ([facility]) Body mass index (BMI) [Ratio] 34.819 kg/m2 34.8 19 kg/m2 W1 ([facility]) Systolic blood pressure 126 mm[Hg] 126 mm[Hg] e CW1 ([facility]) Diastolic blood pressure 82 mm[Hg] 82 mm[Hg] eCW1 ([facility]) Systolic blood pressure 110 mm[Hg] 110 mm[Hg] M EDENT ([facility]) Diastolic blood pressure 72 mm[Hg] 72 mm[Hg] MEDENT ([facility]) Heart rate 86 /min 86 /min [facility] ([facility]) Body temperature 97.7 [degF] 97.7 [degF] MEDENT ([facility]) Respiratory rate 16 /min 16 /min [facility] ( [facility]) Oxygen saturation in Arterial blood by Pulse oximetry 98 % 98 % [facility]ENT ([facility]) Body weight 229.25 [lb_av] 229.25 [lb_av] MEDEN T ([facility]) Body weight 103.988 kg 103.988 kg [facility] Body mass index (BMI) [Ratio] 34.9 kg/m2 34.9 k g/m2 [facility] ([facility]) Body surface area Derived from formula 2.17 m2 2.17 m2 MEDENT ([facility]) Body height 68 [in_i] 68 [in_i] MEDSAMINA ([facility]) 5'8" Patient Treatment Plan of Care Planned Activity Planned Date Details Description Data Source (s) Lurasidone Hydrochloride 20 MG Oral Tablet [Latuda] 02/05/20 21 12:00:00 AM EDT eCW1 ([facility])
== END 2021-09-22 06:00 | disposition left against medical advice (07) ==
LOC: M ED 03:33
DX: Z53.21 Procedure and treatment not carried out due to patient leaving prior to being seen by health care provider (principal)

== ENCOUNTER → 2023-06-07 | Outpatient (REF) | payer OTHER | LOC: M LAB REF 14:00 | PROVIDERS: ATTEND Physician Assistant | DX: R19.7 Diarrhea, unspecified (principal) ==

== ENCOUNTER → 2023-06-13 | Outpatient (REF) | payer OTHER ==
[2023-06-13 13:11] LABS: APPEARANCE, URINE HAZY (CLEAR); BACTERIA, URINE AUTO NEGATIVE (NEGATIVE); BILIRUBIN, URINE AUTO NEGATIVE (NEGATIVE); BLOOD, URINE BLOOD 1+ (NEGATIVE); COLOR, URINE YELLOW (YELLOW); GLUCOSE, URINE (UA) AUTO NEGATIVE (NEGATIVE); KETONE, URINE AUTO NEGATIVE (NEGATIVE); LEUKOCYTE ESTERASE, URINE AUTO NEGATIVE (NEGATIVE); MUCUS, URINE SMALL (NEGATIVE); NITRITE, URINE AUTO NEGATIVE (NEGATIVE); PROTEIN, URINE AUTO NEGATIVE (NEGATIVE); RBC, URINE AUTO 1 /HPF (0-3); SPECIFIC GRAVITY URINE AUTO 1.019 (1.002-1.035); SQUAMOUS EPITHELIAL CELL UR AU 11 /HPF (0-6); UROBILINOGEN, URINE AUTO 0.2 mg/dL (0.0-2.0); WBC, URINE AUTO 3 /HPF (0-3)
[2023-06-13 13:59] LABS: GC DNA AMPLIFICATION NEGATIVE (NEGATIVE)
== END ==
LOC: M LAB REF 11:56
PROVIDERS: ATTEND Physician Assistant Medical
DX: N39.0 Urinary tract infection, site not specified (principal); Z20.2 Contact with and (suspected) exposure to infections with a predominantly sexual mode of transmission